=== PATIENT | female | born 1950 | race Caucasian/White ===

== ENCOUNTER 2018-08-06 09:13 | Emergency (ER) | payer MEDICARE, BC ==
--- NOTE | 2018-08-06 09:40 | EDM.PDOC ---
ED HPI GENERAL MEDICAL PROBLEM - General Chief Complaint: Chest Pain Stated Complaint: BACK PAIN AND CHEST PAIN /SOB Time Seen by Provider: 08/06/18 09:30 Source of Information: Reports: Patient History Limitations: Reports: No Limitations - History of Present Illness INITIAL COMMENTS - FREE TEXT/NARRATIVE: 67-year-old female presents to the ED with complaints of right-sided chest pain but also some central chest pain heaviness dating back as far as 3 days ago. On Saturday she felt fatigued on minimal exertion. But she did appreciate some degree of central chest discomfort on Saturday the . Last night the pain was much worse no position was carpal. She finally had to get out of bed and sleep in a when backed chair with her legs up on another chair. Off up a bit of clear sputum this morning. No fever or chills. Pain is worsened by deep breathing. No recent travel history no history of DVT. Pain in the abdomen. She is aware pain in her right upper back just inferior to her scapula on the right side. Dominant surgery includes a vaginal-assisted hysterectomy with retention of the ovaries. Denies any past problems with her heart. Does has some problems with her blood pressure. Onset: Gradual Onset Date: 08/03/18 (Initially pain pain seemed to be off and on but is much more constant and severe. Pain was 10 out of 10 last night. Currently 7 out of 10) Duration: Day(s):, Getting Worse, Intermittent, Waxing/Waning Location: Reports: Chest (Right anterior chest radiating into her right mid back ) Quality: Reports: Ache (Describes the pain as a dull deep aching pain.) Severity: Moderate (1710 out of 10.) Improves with: Reports: Rest Worsens with: Reports: Other, Movement Context: Reports: Other. Denies: Activity (Coughing), Exercise, Lifting, Sick Contact, Trauma Associated Symptoms: Reports: Chest Pain, Cough (See history of present illness) , Malaise, Shortness of Breath. Denies: Confusion (Spontaneous occurrence), cough w sputum ( October little bit of clear sputum this morning.), Diaphoresis , Fever/Chills, Headaches, Loss of Appetite, Nausea/Vomiting, Rash, Seizure, Weakness Treatments X RAY TECHNOLOGIST: Reports: Other (see below) (None.) Right Chest Pain Score (Numeric/FACES): 5 - Related Data Allergies Allergy/AdvReac Type Severity Reaction Status Date / Time tomato Allergy Itching Verified 08/06/18 09:17 venom-honey bee Allergy Anaphylactic Verified 08/06/18 09:17 [bee venom (honey bee)] Shock Home Meds: Home Meds EPINEPHrine [Epipen] PRN 07/16/15 [History] Lisinopril [Prinivil] 20 mg PO DAILY #30 tablet 07/23/15 [Rx] atorvaSTATin [Lipitor] 1 tab PO DAILY 05/11/16 [History] metFORMIN [Glucophage XR] 1 tab PO BEDTIME 05/11/16 [History] metFORMIN [Glucophage] 2 tab PO DAILY 05/11/16 [History] Past Medical History HEENT History: Reports: None Cardiovascular History: Reports: High Cholesterol, Hypertension Respiratory History: Reports: None Other Respiratory History: Severe snoring Gastrointestinal History: Reports: None Genitourinary History: Reports: None 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 Both ovaries were retained.) Musculoskeletal Surgical History: Reports: Shoulder Surgery (Right rotator cuff surgery.), Other (See Below) (Open reduction internal fixation right tib-fib. Hardware remains in place) Other Musculoskeletal Surgeries/Procedures:: hysterectomy Social & Family History - Family History Family Medical History: Noncontributory - Tobacco Use Smoking Status *Q: Never Smoker - Caffeine Use Caffeine Use: Reports: None - Recreational Drug Use Recreational Drug Use: No - Living Situation & Occupation Living situation: Reports: Occupation: Employed ED ROS GENERAL - Review of Systems Review Of Systems: See Below Constitutional: Reports: Malaise, Fatigue (From not sleeping the last 4 nights) , Decreased Appetite. Denies: Fever, Chills, Weight Loss HEENT: Reports: Glasses Respiratory: Reports: Shortness of Breath, Other. Denies: Wheezing, Pleuritic Chest Pain, Cough, Sputum Cardiovascular: Reports: Chest Pain (Right chest pain. Right chest pain for the last 4 days just gradually getting worse. Occasional central chest discomfort but primarily right upper anterior chest rating to to her right back inferior to her scapula), Blood Pressure Problem, Dyspnea on Exertion, Edema (Right leg will swell once well but if she wears a compression stocking she usually keeps it under control. This is the leg she had surgery on for broken). Denies: Claudication (Chronic hypertension), Lightheadedness, Orthopnea Endocrine: Reports: Fatigue GI/Abdominal: Denies: Abdominal Pain Musculoskeletal: Reports: Back Pain (Right upper back pain associate with the right chest pain underneath her shoulder blade) Skin: Reports: No Symptoms Neurological: Reports: No Symptoms Psychiatric: Reports: No Symptoms ED EXAM, GENERAL - Physical Exam Exam: See Below Exam Limited By: No Limitations General Appearance: WD/WN, Moderate Distress (Appears to be in genuine discomfort.) Eye Exam: Bilateral Eye: Normal Inspection Neck: Normal Inspection, Supple, Non-Tender, Full Range of Motion. No: Carotid Bruit, Lymphadenopathy (L), Lymphadenopathy (R) Respiratory/Chest: No Respiratory Distress, Lungs Clear, Normal Breath Sounds, Other (No similar type pain on the left side.) Cardiovascular: Normal Peripheral Pulses, Regular Rate, Rhythm, No Edema, No Gallop, No Murmur, No Rub Peripheral Pulses: 1+: Posterior Tibial (L), Posterior Tibial (R), Dorsalis Pedis (L), Dorsalis Pedis (R) GI/Abdominal: Normal Bowel Sounds, Soft, Non-Tender, No Organomegaly, No Abnormal Bruit, No Mass, Pelvis Stable, Other (Negative Larios sign) Back Exam: Normal Inspection, Full Range of Motion, Other (There is some degree of muscle spasm and tenderness just inferior and slightly medial to the lower right scapula.) Extremities: Normal Inspection, Normal Range of Motion, Non-Tender, No Pedal Edema Neurological: Alert, Oriented, CN II-XII Intact, Normal Cognition Psychiatric: Normal Affect, Normal Mood Skin Exam: Warm, Dry, Intact, Normal Color, No Rash EKG INTERPRETATION EKG Date: 08/06/18 Time: 09:20 Rhythm: NSR Rate (Beats/Min): 90 (Frequent unifocal PVCs. Occasional PACs.) [place]: Normal P-Wave: Enlarged (Left atrial hypertrophy pattern) QRS: Other (There is a Q-wave in V1 and V2 and near Q-wave in V3 suggesting old anteroseptal myocardial infarction.) ST-T: Other (Diffuse early repolarization pattern.) QT: Normal EKG Interpretation Comments: Abnormal ECG Course - Vital Signs Last Recorded V/S: Last Vital Signs Temp 36.0 C 08/06/18 09:17 Pulse 101 H 08/06/18 09:17 Resp 18 08/06/18 09:17 BP 166/98 H 08/06/18 09:17 Pulse Ox 97 08/06/18 09:17 - Orders/Labs/Meds Orders: Active Orders 24 hr Category Date Time Status EKG 12 Lead [EKG Documentation Completion] [RC] STAT Care 08/06/18 09:25 Active Chest 1V Frontal [CR] Stat Exams 08/06/18 09:49 Taken Ketorolac [Toradol] Med 08/06/18 10:00 Active 30 mg IVPUSH ONETIME Sodium Chloride 0.9% [Normal Saline] 1,000 ml Med 08/06/18 10:00 Active IV ASDIRECTED Medication Orders Sodium Chloride (Normal Saline) 1,000 mls @ 100 mls/hr IV ASDIRECTED JEFE Last Admin: 08/06/18 09:58 Dose: 100 mls/hr Ketorolac Tromethamine (Toradol) 30 mg IVPUSH ONETIME JEFE Last Admin: 08/06/18 09:59 Dose: 30 mg Labs: Laboratory Tests 08/06/18 08/06/18 08/06/18 Range/Units 09:35 09:35 09:35 WBC 10.35 H (3.98-10.04) K/mm3 RBC 4.13 (3.98-5.22) M/mm3 Hgb 11.7 (11.2-15.7) gm/L Hct 35.3 (34.1-44.9) % MCV 85.5 (79.4-94.8) fl MCH 28.3 (25.6-32.2) pg MCHC 33.1 (32.2-35.5) g/dl RDW Std Deviation 40.2 (36.4-46.3) fL Plt Count 351 (182-369) K/mm3 MPV 11.0 (9.4-12.3) fl Neutrophils % (Manual) 67 H (40-60) % Band Neutrophils % 0 (0-10) % Lymphocytes % (Manual) 27 (20-40) % Atypical Lymphs % 0 % Monocytes % (Manual) 5 (2-10) % Eosinophils % (Manual) 1 (0.7-5.8) % Basophils % (Manual) 0 L (0.1-1.2) Platelet Estimate Adequate RBC Morph Comment Normal PT 10.3 (9.5-12.1) SECONDS INR 0.94 D-Dimer, Quantitative (0.19-0.50) mg/L Sodium 135 L (136-145) mEq/L Potassium 4.3 (3.5-5.1) mEq/L Chloride 101 (98-107) mEq/L Carbon Dioxide 24 (21-32) mEq/L Anion Gap 14.3 (5-15) BUN 13 (7-18) mg/dL Creatinine 1.1 H (0.55-1.02) mg/dL Est Cr Clr Drug Dosing 41.62 mL/min Estimated GFR (MDRD) 50 (>60) mL/min BUN/Creatinine Ratio 11.8 L (14-18) Glucose 256 H (80-115) mg/dL Calcium 9.7 (8.5-10.1) mg/dL Magnesium 1.5 L (1.8-2.4) mg/dl Total Bilirubin 0.5 (0.2-1.0) mg/dL AST 27 (15-37) U/L ALT 31 (14-59) U/L Alkaline Phosphatase 127 H (46-116) U/L CK-MB (CK-2) 8.0 H (0-3.6) ng/ml Troponin I 3.214 H* (0.00-0.056) ng/mL C-Reactive Protein 0.8 (<1.0) mg/dL NT-Pro-B Natriuret Pep (0-125) pg/mL Total Protein 7.6 (6.4-8.2) g/dl Albumin 4.0 (3.4-5.0) g/dl Globulin 3.6 gm/dL Albumin/Globulin Ratio 1.1 (1-2) 18 08/06/18 Range/Units 09:35 09:35 WBC (3.98-10.04) K/mm3 RBC (3.98-5.22) M/mm3 Hgb (11.2-15.7) gm/L Hct (34.1-44.9) % MCV (79.4-94.8) fl MCH (25.6-32.2) pg MCHC (32.2-35.5) g/dl RDW Std Deviation (36.4-46.3) fL Plt Count (182-369) K/mm3 MPV (9.4-12.3) fl Neutrophils % (Manual) (40-60) % Band Neutrophils % (0-10) % Lymphocytes % (Manual) (20-40) % Atypical Lymphs % % Monocytes % (Manual) (2-10) % Eosinophils % (Manual) (0.7-5.8) % Basophils % (Manual) (0.1-1.2) Platelet Estimate RBC Morph Comment PT (9.5-12.1) SECONDS INR D-Dimer, Quantitative 0.27 (0.19-0.50) mg/L Sodium (136-145) mEq/L Potassium (3.5-5.1) mEq/L Chloride (98-107) mEq/L Carbon Dioxide (21-32) mEq/L Anion Gap (5-15) BUN (7-18) mg/dL Creatinine (0.55-1.02) mg/dL Est Cr Clr Drug Dosing mL/min Estimated GFR (MDRD) (>60) mL/min BUN/Creatinine Ratio (14-18) Glucose (80-115) mg/dL Calcium (8.5-10.1) mg/dL Magnesium (1.8-2.4) mg/dl Total Bilirubin (0.2-1.0) mg/dL AST (15-37) U/L ALT (14-59) U/L Alkaline Phosphatase (46-116) U/L CK-MB (CK-2) (0-3.6) ng/ml Troponin I (0.00-0.056) ng/mL C-Reactive Protein (<1.0) mg/dL NT-Pro-B Natriuret Pep 4723 H (0-125) pg/mL Total Protein (6.4-8.2) g/dl Albumin (3.4-5.0) g/dl Globulin gm/dL Albumin/Globulin Ratio (1-2) Meds: Medications Generic Name Dose Route Start Last Admin Trade Name Kasey PRN Reason Stop Dose Admin Sodium Chloride 1,000 mls @ 100 mls/hr 08/06/18 10:00 08/06/18 09:58 Normal Saline IV 100 mls/hr ASDIRECTED JEFE Administration Ketorolac Tromethamine 30 mg 08/06/18 10:00 08/06/18 09:59 Toradol IVPUSH 30 mg ONETIME JEFE Administration Discontinued Medications Generic Name Dose Route Start Last Admin Trade Name Kasey PRN Reason Stop Dose Admin Hydromorphone HCl 0.5 mg 08/06/18 09:46 08/06/18 10:00 Dilaudid IVPUSH 08/06/18 09:47 0.5 mg ONETIME ONE Administration Metoclopramide HCl 7.5 mg 08/06/18 09:47 08/06/18 09:58 Reglan IVPUSH 08/06/18 09:48 7.5 mg ONETIME ONE Administration - Radiology Interpretation Free Text/Narrative:: 67-year-old female presents to the ED with a four-day history of right-sided chest pain. Initially started more central chest and then moved over to the right anterior upper chest. She the pain was intermittent but is now become much more constant and severe. She couldn't sleep at all last night is lying in bed seem to make pain much worse. She sat up in a wheelchair with her legs elevated throat the night. Associated cough fever chills. Pain is described as a dull deep ache that is constant. Patient reports no known heart disease. Has chronic hypertension and hypercholesterolemia. She is a never smoker. ECG suggests an old anteroseptal myocardial infarction. Examination reveals marked chest wall tenderness on palpation of the ribs right anterior chest particularly 3,4 and 5. Some pain also inferior to her right scapula in her back with some mild muscle spasm noted. No rashes noted to suggest shingles at this time. Current pain is listed as 7 out of 10. O2 sats are normal. Plan IV normal saline at 100 mils per hour. Will give Toradol 30 mg IV with Reglan 7.5 mg IV and Dilaudid 0.5 mg IV for acute pain relief. Routine labs including cardiac markers and d-dimer to be done. Single chest x-ray to be done as well. - Re-Assessments/Exams Free Text/Narrative Re-Assessment/Exam: 08/06/18 10:13 2 view chest x-ray reveals a mild diffuse vascular congestion pattern. No true lung infiltrates. There are soft tissue densities both lower lobes from her breasts. Ribs appear to be normal. 08/06/18 10:50: On reevaluation patient states her pain is markedly improved. She states she has some mild discomfort over the right anterior ribs particular a third and fourth which was present still on palpation but much improved. We are still awaiting the lab results. 08/06/18 11:01 Part of the labs are back. White count was 10.3 567% neutrophils but no bands reported. Hemoglobin slightly low 11.7 with hematocrit of 35.3. Count normal 351,000. PT is 10.3 with an INR of 0.94. D-dimer is normal at 0.27. Remainder the labs are now back.. Sodium is slightly low at 135. Potassium normal at 4.3. Chloride 11 with a bicarbonate 24. And a gap is normal at 14.3. BUN is 13 with a creatinine of 1.1. GFR is 50. Glucose is elevated at 256. She has a known type II diabetic. Is 9.7. Magnesium slightly low at 1.5. Liver function is normal. Alkaline phosphatase is minimally elevated 127. CK-MB fraction is elevated at 8.0. Is markedly elevated at 3.214 indicating recent myocardial infarction. He is elevated at 4723. Plan the patient be started on low-dose nitroglycerin drip at 10 mcg/m. She'll be given baby aspirin 324 mg chewed. He started on heparin drip as well. She'll be given 5000 unit bolus and then started at 1000 units per hour. I will make appropriate arrangements for transfer to cardiology in [place]. 08/06/18 11:10 after speaking with the patient and her daughter decision made to transport to [facility] in [place]. 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 Chow--at [facility] in [place] and she has accepted care. Plan will be to have the patient admitted by hospitalist --on the telemetry service. Dr. Chow will see her in consultation. Be transported to [place] per ground ambulance. Dr. Chow--had asked that we give her a dose of 40 mg of Lipitor now. The patient's daughter went home and attached she the medications and she will be given Lipitor 40 by mouth now. We do not have Lipitor in the hospital. Vital signs at this time reveal a heart rate of 90 in sinus. BP is 148/89 sats are 94% on room air. Departure - Departure Time of Disposition: 11:37 Disposition: DC/Tfer to Acute Hospital 02 Reason for Transfer *Q: Primary PCI Indicated Condition: Fair Clinical Impression: Acute myocardial infarction due to left coronary artery occlusion, Hypomagnesemia Referrals: Nixon Hawkins Jr, MD [Primary Care Provider] - Forms: ED Department Discharge Additional Instructions: Transferred to [facility] in [place] to be a direct admit under hospice . - My Orders Last 24 Hours: My Active Orders 08/06/18 09:25 EKG 12 Lead [EKG Documentation Completion] [RC] STAT 08/06/18 09:49 Chest 1V Frontal [CR] Stat 08/06/18 10:00 Ketorolac [Toradol] 30 mg IVPUSH ONETIME Sodium Chloride 0.9% [Normal Saline] 1,000 ml IV ASDIRECTED - Assessment/Plan Last 24 Hours: My Active Orders 08/06/18 09:25 EKG 12 Lead [EKG Documentation Completion] [RC] STAT 08/06/18 09:49 Chest 1V Frontal [CR] Stat 08/06/18 10:00 Ketorolac [Toradol] 30 mg IVPUSH ONETIME Sodium Chloride 0.9% [Normal Saline] 1,000 ml IV ASDIRECTED
[2018-08-06] MEDS ORDERED: HYDROmorphone 0.5 MG/0.5 ML SYRINGE IVPUSH ONE (09:46)
[2018-08-06] MEDS ORDERED: Metoclopramide 10 MG/2 ML SDV IVPUSH ONE (09:47)
[2018-08-06] MEDS ORDERED: Ketorolac 30 MG/ML SDV IVPUSH SCH (10:00)
[2018-08-06] MEDS ORDERED: Sodium Chloride 0.9% 1,000 ML IV SCH ×2 (10:00→11:45)
[2018-08-06] MEDS ORDERED: Aspirin 81 MG Tab.Chew PO ONE (11:02)
[2018-08-06] MEDS ORDERED: Furosemide 40 MG/4 ML VIAL IVPUSH ONE (11:04)
[2018-08-06] MEDS ORDERED: Heparin Sodium 5,000 Units/ML Vial IVPUSH ONE (11:04)
[2018-08-06] MEDS ORDERED: Nitroglycerin/D5W 25 MG/250 ML BOTTLE IV SCH (11:15)
[2018-08-06] MEDS ORDERED: Heparin Sodium/D5W 25,000 UNITS/500 ML BAG IV SCH (11:15)
[2018-08-06] MEDS ORDERED: Simvastatin 40 MG Tab PO ONE (11:20)
[2018-08-06] MEDS ORDERED: Magnesium Sulfate/Water 2 GM in Premix Bag 1 BAG IV ONE (11:38)
[2018-08-06] MEDS ORDERED: Sodium Chloride 0.9% 10 ML Syringe FLUSH PRN (11:39)
--- NOTE | 2018-08-06 12:44 | CR ---
Chest: Portable view of the chest was obtained. Comparison: Prior chest x-ray of 07/17/15. Heart size and mediastinum are within normal limits for portable technique. Previous right shoulder surgery is seen. Lungs are clear with no acute parenchymal change. Impression: 1. Incidental findings. Nothing acute is seen on portable chest x-ray. Diagnostic code #2
[2018-08-06 12:54] VITALS: BP 144/92
== END 2018-08-06 12:07 ==
LOC: JD.ED 09:13
DX: I21.9 Acute myocardial infarction, unspecified (principal); E83.42 Hypomagnesemia; E11.9 Type 2 diabetes mellitus without complications; Z91.018 Allergy to other foods; Z91.030 Bee allergy status; Z79.899 Other long term (current) drug therapy
CPT/HCPCS: 36415; 71045; 80053; 82553; 83735; 83880; 84484; 85007; 85027; 85379; 85610; 85730; 86140; 93005; 96361; 96365; 96368; 96375; 99285; A9270; J1170; J1644; J1885; J1940; J2765; J3490; J7040; J7050; 93010; J3475

== ENCOUNTER 2021-02-24 07:33 | Inpatient (IN) | payer BC, MEDICARE ==
[2021-02-24] MEDS ORDERED: Ondansetron 4 MG/2 ML SDV IVPUSH ONE (08:04)
[2021-02-24] MEDS ORDERED: Sodium Chloride 0.9% 1,000 ML IV SCH (08:15)
[2021-02-24] MEDS: Sodium Chloride 0.9% 10 ML Syringe FLUSH PRN (08:23)
--- NOTE | 2021-02-24 08:40 | CR ---
Chest: Portable view of the chest was obtained. Comparison: Prior chest x-ray of 08/06/18. Patchy areas of increased density are seen within both lung bases, worse on the left side. These findings are an interval change from prior exam. Slight density is also noted within the left upper lung. Heart size and mediastinum are within normal limits. Prior right shoulder surgery is noted. Impression: 1. Increased density within both lung bases, worse on the right side. Additional increased density within the left upper lung is seen. Findings could represent areas of aspiration as well as bilateral pneumonia. Please rule out COVID disease. 2. Other findings as noted above which are stable. Diagnostic code #3
--- NOTE | 2021-02-24 09:00 | EDM.PDOC ---
ED HPI GENERAL MEDICAL PROBLEM - General Chief Complaint: Respiratory Problem Stated Complaint: COVID +/SOB Time Seen by Provider: 02/24/21 07:51 Source of Information: Reports: Patient History Limitations: Reports: No Limitations - History of Present Illness INITIAL COMMENTS - FREE TEXT/NARRATIVE: The patient presents with a fever, chills, cough, body aches, shortness of breat h, generalized weakness and nausea and vomiting. She is COVID +. She was diagnosed last Saturday at [facility]. She has also been immunized. She had the Ricky and Ricky vaccine at [facility] on January 25. She did fine with it and she has been feeling good until about 10 days ago. She has a history of diabetes, [place], CAD, hypertension and hypercholesterolemia. She has no diarrhea with this. She does not smoke. When she came back her oxygen saturations were 88%. She denies chest pain. Onset: Gradual Duration: Week(s): Location: Reports: Generalized Quality: Reports: Ache Severity: Moderate Improves with: Reports: None Worsens with: Reports: None Associated Symptoms: Reports: Cough, Fever/Chills, Headaches, Nausea/Vomiting, Shortness of Breath. Denies: Chest Pain Generalized Pain Score (Numeric/FACES): 8 - Related Data Allergies Allergy/AdvReac Type Severity Reaction Status Date / Time tomato Allergy Itching Verified 02/24/21 07:48 venom-honey bee Allergy Anaphylactic Verified 02/24/21 07:48 [bee venom (honey bee)] Shock Home Meds: Home Meds Aspirin [Adult Aspirin] 81 mg PO DAILY 08/18/18 [History] Metoprolol Tartrate 25 mg PO BID 08/18/18 [History] atorvaSTATin Calcium [Lipitor] 40 mg PO DAILY 08/18/18 [History] metFORMIN [Glucophage] 1,000 mg PO BID 08/18/18 [History] Dapagliflozin Propanediol [Farxiga] 10 mg PO DAILY 02/24/21 [History] Ubidecarenone [Co Q-10] 100 mg PO DAILY 02/24/21 [History] Past Medical History HEENT History: Reports: None Cardiovascular History: Reports: High Cholesterol, Hypertension Respiratory History: Reports: None Other Respiratory History: Severe snoring Gastrointestinal History: Reports: None Genitourinary History: Reports: None 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: 2 pregnancies 1 live Musculoskeletal History: Reports: Arthritis Neurological History: Reports: None Other Neuro History: syncope with LOC Endocrine/Metabolic History: Reports: Diabetes, Type I Hematologic History: Reports: None Immunologic History: Reports: None Oncologic (Cancer) History: Reports: None Dermatologic History: Reports: None - Infectious Disease History Infectious Disease History: Reports: None - Past Surgical History Other HEENT Surgeries/Procedures: itchy ears and infection Female Surgical History: Reports: Hysterectomy Endocrine Surgical History: Reports: None Other Endocrine Surgeries/Procedures: brothers mother hx of diabetes Neurological Surgical History: Reports: None Musculoskeletal Surgical History: Reports: Shoulder Surgery, Other (See Below) Other Musculoskeletal Surgeries/Procedures:: hysterectomy Social & Family History - Family History Family Medical History: No Pertinent Family History - Tobacco Use Tobacco Use Status *Q: Never Tobacco User - Caffeine Use Caffeine Use: Reports: None - Recreational Drug Use Recreational Drug Use: No - Living Situation & Occupation Living situation: Reports: Occupation: Employed ED ROS GENERAL - Review of Systems Review Of Systems: See Below Constitutional: Reports: Fever, Chills, Malaise, Weakness, Fatigue HEENT: Reports: No Symptoms Respiratory: Reports: Shortness of Breath, Cough Cardiovascular: Reports: No Symptoms Endocrine: Reports: Fatigue GI/Abdominal: Reports: Nausea, Vomiting. Denies: Abdominal Pain, Diarrhea : Reports: No Symptoms Musculoskeletal: Reports: Muscle Pain (Generalized) ED EXAM, GENERAL - Physical Exam Exam: See Below Exam Limited By: No Limitations General Appearance: Alert, No Apparent Distress Ears: Normal External Exam Nose: Normal Inspection Head: Atraumatic, Normocephalic Neck: Normal Inspection Respiratory/Chest: No Respiratory Distress, Rhonchi Cardiovascular: Regular Rate, Rhythm, No Edema, No Murmur GI/Abdominal: Soft, Non-Tender, No Organomegaly, No Mass Back Exam: Normal Inspection Extremities: Normal Inspection Neurological: Alert, Oriented, No Motor/Sensory Deficits #1 Interpretation EKG Date: 02/24/21 Time: 08:24 Rhythm: NSR Rate (Beats/Min): 79 [place]: Normal P-Wave: Present QRS: Normal ST-T: Normal QT: Normal Course - Vital Signs Last Recorded V/S: Last Vital Signs Temp 100.2 F 02/24/21 07:42 Pulse 89 02/24/21 07:42 Resp 17 02/24/21 07:42 BP 180/77 H 02/24/21 07:42 Pulse Ox 89 L 02/24/21 07:42 - Orders/Labs/Meds Orders: Active Orders 24 hr Category Date Time Status Cardiac Monitoring [RC] . DIRECTED Care 02/24/21 08:04 Active EKG Documentation Completion [RC] STAT Care 02/24/21 08:05 Active Oxygen Therapy [RC] PRN Care 02/24/21 08:04 Active Peripheral IV Care [RC] . DIRECTED Care 02/24/21 08:04 Active CULTURE BLOOD [BC] Stat Lab 02/24/21 08:15 Received CULTURE BLOOD [BC] Stat Lab 02/24/21 08:25 Received HEPATIC FUNCTION PANEL,HFP [CHEM] DAILY Lab 02/25/21 10:00 Ordered HEPATIC FUNCTION PANEL,HFP [CHEM] DAILY Lab 02/26/21 10:00 Ordered HEPATIC FUNCTION PANEL,HFP [CHEM] DAILY Lab 02/27/21 10:00 Ordered HEPATIC FUNCTION PANEL,HFP [CHEM] DAILY Lab 02/28/21 10:00 Ordered HEPATIC FUNCTION PANEL,HFP [CHEM] Stat Lab 02/24/21 08:15 Received Sodium Chloride 0.9% [Normal Saline] 1,000 ml Med 02/24/21 08:15 Active IV .BOLUS Sodium Chloride 0.9% [Saline Flush] Med 02/24/21 08:04 Active 10 ml FLUSH ASDIRECTED PRN Blood Culture x2 Reflex Set [OM.PC] Stat Oth 02/24/21 08:05 Ordered ED Antiemetic Medication Reflex [OM.PC] Stat Oth 02/24/21 08:04 Ordered Isolation [COMM] Routine Oth 02/24/21 08:07 Ordered Peripheral IV Insertion Adult [OM.PC] Stat Oth 02/24/21 08:04 Ordered Medication Orders Sodium Chloride (Normal Saline) 1,000 mls @ 1,000 mls/hr IV .BOLUS JEFE Last Admin: 02/24/21 08:23 Dose: 1,000 mls/hr Documented by: BUDDY Sodium Chloride (Sodium Chloride 0.9% 10 Ml Syringe) 10 ml FLUSH ASDIRECTED PRN PRN Reason: Keep Vein Open Last Admin: 02/24/21 08:23 Dose: 10 ml Documented by: BUDDY Labs: Laboratory Tests 02/24/21 02/24/21 02/24/21 Range/Units 08:15 08:15 08:15 WBC 9.93 (3.98-10.04) K/mm3 RBC 3.63 L (3.98-5.22) M/mm3 Hgb 10.1 L D (11.2-15.7) gm/dl Hct 30.9 L (34.1-44.9) % MCV 85.1 (79.4-94.8) fl MCH 27.8 (25.6-32.2) pg MCHC 32.7 (32.2-35.5) g/dl RDW Std Deviation 40.4 (36.4-46.3) fL Plt Count 454 H D (182-369) K/mm3 MPV 10.0 (9.4-12.3) fl Neut % (Auto) 77.9 H (34.0-71.1) % Lymph % (Auto) 11.1 L (19.3-51.7) % [place] % (Auto) 8.8 (4.7-12.5) % Eos % (Auto) 0.1 L (0.7-5.8) Baso % (Auto) 0.1 (0.1-1.2) % Neut # (Auto) 7.74 H (1.56-6.13) K/mm3 Lymph # (Auto) 1.10 L (1.18-3.74) K/mm3 [place] # (Auto) 0.87 H (0.24-0.36) K/mm3 Eos # (Auto) 0.01 L (0.04-0.36) K/mm3 Baso # (Auto) 0.01 (0.01-0.08) K/mm3 Manual Slide Review Abnormal smear PT 10.4 (9.7-12.0) SECONDS INR 0.97 APTT 26.4 (21.7-31.4) SECONDS D-Dimer, Quantitative 1.22 H (0.19-0.50) mg/L Puncture Site ABG pH (7.35-7.45) ABG pCO2 (35.0-45.0) mmHg ABG pO2 (80.0-100.0) mmHg ABG HCO3 (22.0-26.0) meq/L ABG O2 Saturation (96.0-97.0) % ABG Base Excess (-2-2.0) Kadeem Test A-a Gradient mmHg O2 Delivery Device Oxygen Flow Rate FiO2 (21.00-100.00) % Sodium 135 L (136-145) mEq/L Potassium 4.1 (3.5-5.1) mEq/L Chloride 97 L (98-107) mEq/L Carbon Dioxide 26 (21-32) mEq/L Anion Gap 16.1 H (5-15) BUN 16 (7-18) mg/dL Creatinine 1.2 H (0.55-1.02) mg/dL Est Cr Clr Drug Dosing 36.60 mL/min Estimated GFR (MDRD) 45 (>60) mL/min BUN/Creatinine Ratio 13.3 L (14-18) Glucose 363 H (80-115) mg/dL Lactic Acid (0.4-2.0) mmol/L Calcium 8.6 (8.5-10.1) mg/dL Magnesium 1.9 (1.8-2.4) mg/dl Ferritin (8-252) ng/ml Total Bilirubin 0.5 (0.2-1.0) mg/dL AST 33 (15-37) U/L ALT 44 (14-59) U/L Alkaline Phosphatase 151 H (46-116) U/L Lactate Dehydrogenase 324 H (81-234) U/L Troponin I < 0.017 (0.00-0.056) ng/mL C-Reactive Protein 25.8 H* (<1.0) mg/dL Total Protein 8.0 (6.4-8.2) g/dl Albumin 2.8 L (3.4-5.0) g/dl Globulin 5.2 gm/dL Albumin/Globulin Ratio 0.5 L (1-2) 02/24/21 02/24/21 02/24/21 Range/Units 08:15 08:15 08:32 WBC (3.98-10.04) K/mm3 RBC (3.98-5.22) M/mm3 Hgb (11.2-15.7) gm/dl Hct (34.1-44.9) % MCV (79.4-94.8) fl MCH (25.6-32.2) pg MCHC (32.2-35.5) g/dl RDW Std Deviation (36.4-46.3) fL Plt Count (182-369) K/mm3 MPV (9.4-12.3) fl Neut % (Auto) (34.0-71.1) % Lymph % (Auto) (19.3-51.7) % [place] % (Auto) (4.7-12.5) % Eos % (Auto) (0.7-5.8) Baso % (Auto) (0.1-1.2) % Neut # (Auto) (1.56-6.13) K/mm3 Lymph # (Auto) (1.18-3.74) K/mm3 [place] # (Auto) (0.24-0.36) K/mm3 Eos # (Auto) (0.04-0.36) K/mm3 Baso # (Auto) (0.01-0.08) K/mm3 Manual Slide Review PT (9.7-12.0) SECONDS INR APTT (21.7-31.4) SECONDS D-Dimer, Quantitative (0.19-0.50) mg/L Puncture Site Lt radial ABG pH 7.45 (7.35-7.45) ABG pCO2 35.6 (35.0-45.0) mmHg ABG pO2 88.0 (80.0-100.0) mmHg ABG HCO3 24.4 (22.0-26.0) meq/L ABG O2 Saturation 96.6 (96.0-97.0) % ABG Base Excess 1.1 (-2-2.0) Kadeem Test Positive A-a Gradient 67 mmHg O2 Delivery Device Nasal cannula Oxygen Flow Rate 2.0 FiO2 28.00 (21.00-100.00) % Sodium (136-145) mEq/L Potassium (3.5-5.1) mEq/L Chloride (98-107) mEq/L Carbon Dioxide (21-32) mEq/L Anion Gap (5-15) BUN (7-18) mg/dL Creatinine (0.55-1.02) mg/dL Est Cr Clr Drug Dosing mL/min Estimated GFR (MDRD) (>60) mL/min BUN/Creatinine Ratio (14-18) Glucose (80-115) mg/dL Lactic Acid 1.5 (0.4-2.0) mmol/L Calcium (8.5-10.1) mg/dL Magnesium (1.8-2.4) mg/dl Ferritin 599 H (8-252) ng/ml Total Bilirubin (0.2-1.0) mg/dL AST (15-37) U/L ALT (14-59) U/L Alkaline Phosphatase (46-116) U/L Lactate Dehydrogenase (81-234) U/L Troponin I (0.00-0.056) ng/mL C-Reactive Protein (<1.0) mg/dL Total Protein (6.4-8.2) g/dl Albumin (3.4-5.0) g/dl Globulin gm/dL Albumin/Globulin Ratio (1-2) Meds: Medications Generic Name Dose Route Start Last Admin Trade Name Freq PRN Reason Stop Dose Admin Sodium Chloride 1,000 mls @ 1,000 mls/hr 02/24/21 08:15 02/24/21 08:23 Normal Saline IV 1,000 mls/hr .BOLUS JEFE Administration Sodium Chloride 10 ml 02/24/21 08:04 02/24/21 08:23 Sodium Chloride 0.9% 10 Ml Syringe FLUSH 10 ml ASDIRECTED PRN Administration Keep Vein Open Discontinued Medications Generic Name Dose Route Start Last Admin Trade Name Freq PRN Reason Stop Dose Admin Dexamethasone 6 mg 02/24/21 09:59 Dexamethasone 4 Mg/Ml Sdv IVPUSH 02/24/21 10:00 ONETIME ONE Remdesivir 200 mg/ Sodium 250 mls @ 250 mls/hr 02/24/21 09:59 Chloride IV 02/24/21 10:00 ONETIME ONE Ondansetron HCl 4 mg 02/24/21 08:04 02/24/21 08:23 Ondansetron 4 Mg/2 Ml Sdv IVPUSH 02/24/21 08:05 4 mg ONETIME ONE Administration - Re-Assessments/Exams Free Text/Narrative Re-Assessment/Exam: 02/24/21 09:01 I ordered oxygen, IV NS 1L bolus, zofran 4mg IV, EKG, CXR, labs, lactic acid and blood cultures. Her EKG shows a NSR with on acute changes. Her CXR shows inc reased density within both lung bases, worse on the right side. Additional increased density within the left upper lung is seen. Findings could represent areas of aspiration as well as bilateral pneumonia. Please rule out COVID disease. Other findings which are stable. Her WBC was normal. Her Hgb was low at 10.1. Her ABG looks good on oxygen by nasal cannula. 02/24/21 10:10 Her D-dimer was elevated at 1.22. Her Na was low at 135. Her anion gap was elevated at 16.1. Her creatinine was elevated at 1.2. Her glucose was elevated at 363. Her lactic acid was normal. Her Ferritin was elevated at 599. Her alk phos was elevated at 151. Her LDH is elevated at 324. Her troponin is negative. Her CRP is elevated at 25.8. She has COVID pneumonia and needing oxygen. I have ordered dexamethasone 6mg IV and remdesivir 200mg IV. I called Dr Subramanian and he agreed to the admission. Departure - Departure Time of Disposition: 10:15 Disposition: Admitted As Inpatient 67 Condition: Fair Clinical Impression: COVID-19, Pneumonia due to COVID-19 virus, Hypoxia - Discharge Information Referrals: Nixon Hawkins Jr, MD [Primary Care Provider] - Forms: ED Department Discharge Sepsis Event Note (ED) - Evaluation Sepsis Screening Result: No Definite Risk - Focused Exam Vital Signs: Vital Signs Temp Pulse Resp BP Pulse Ox 02/24/21 07:42 100.2 F 89 17 180/77 H 89 L - My Orders Last 24 Hours: My Active Orders 02/24/21 08:04 Cardiac Monitoring [RC] . DIRECTED Oxygen Therapy [RC] PRN Peripheral IV Care [RC] . DIRECTED Sodium Chloride 0.9% [Saline Flush] 10 ml FLUSH ASDIRECTED PRN ED Antiemetic Medication Reflex [OM.PC] Stat Peripheral IV Insertion Adult [OM.PC] Stat 02/24/21 08:05 EKG Documentation Completion [RC] STAT Blood Culture x2 Reflex Set [OM.PC] Stat 02/24/21 08:07 Isolation [COMM] Routine 02/24/21 08:15 CULTURE BLOOD [BC] Stat HEPATIC FUNCTION PANEL,HFP [CHEM] Stat Sodium Chloride 0.9% [Normal Saline] 1,000 ml IV .BOLUS 02/24/21 08:25 CULTURE BLOOD [BC] Stat 02/25/21 10:00 HEPATIC FUNCTION PANEL,HFP [CHEM] DAILY 02/26/21 10:00 HEPATIC FUNCTION PANEL,HFP [CHEM] DAILY 02/27/21 10:00 HEPATIC FUNCTION PANEL,HFP [CHEM] DAILY 02/28/21 10:00 HEPATIC FUNCTION PANEL,HFP [CHEM] DAILY - Assessment/Plan Last 24 Hours: My Active Orders 02/24/21 08:04 Cardiac Monitoring [RC] . DIRECTED Oxygen Therapy [RC] PRN Peripheral IV Care [RC] . DIRECTED Sodium Chloride 0.9% [Saline Flush] 10 ml FLUSH ASDIRECTED PRN ED Antiemetic Medication Reflex [OM.PC] Stat Peripheral IV Insertion Adult [OM.PC] Stat 02/24/21 08:05 EKG Documentation Completion [RC] STAT Blood Culture x2 Reflex Set [OM.PC] Stat 02/24/21 08:07 Isolation [COMM] Routine 02/24/21 08:15 CULTURE BLOOD [BC] Stat HEPATIC FUNCTION PANEL,HFP [CHEM] Stat Sodium Chloride 0.9% [Normal Saline] 1,000 ml IV .BOLUS 02/24/21 08:25 CULTURE BLOOD [BC] Stat 02/25/21 10:00 HEPATIC FUNCTION PANEL,HFP [CHEM] DAILY 02/26/21 10:00 HEPATIC FUNCTION PANEL,HFP [CHEM] DAILY 02/27/21 10:00 HEPATIC FUNCTION PANEL,HFP [CHEM] DAILY 02/28/21 10:00 HEPATIC FUNCTION PANEL,HFP [CHEM] DAILY
[2021-02-24] MEDS ORDERED: Dexamethasone 4 MG/ML SDV IVPUSH ONE (09:59)
[2021-02-24] MEDS ORDERED: REMDESIVIR 200 MG in Sodium Chloride 0.9% 250 ML IV ONE ×2 (09:59→11:00)
[2021-02-24] MEDS ORDERED: Magnesium Hydroxide 400 MG/5 ML Susp 30 ML Cup PO PRN (12:37)
[2021-02-24] MEDS ORDERED: Docusate Sodium 100 MG Cap PO PRN (12:37)
[2021-02-24] MEDS ORDERED: Ondansetron 4 MG/2 ML SDV IV PRN (12:37)
--- NOTE | 2021-02-24 12:53 | PCM.HP.2 ---
H&P History of Present Illness - General Date of Service: 02/24/21 Admit Problem/Dx: Admission Diagnosis/Problem Admission Diagnosis/Problem Pneumonia Source of Information: Patient, Old Records, Provider, RN, RN Notes Reviewed History Limitations: Reports: No Limitations - History of Present Illness Initial Comments - Free Text/Narative: This is a 70-year-old female presents to ED on 02/24/2021 with fever, chills, cough, body aches, shortness of breath, generalized weakness, nausea, and vomiting. She was tested and confirmed positive with Covid this past Saturday at [facility]. She reports she received a [employer] Covid vaccine at [facility] on January 25. She had been doing fine until about 10 days ago when she started developing symptoms. She denies any diarrhea or smoking history. Denies any current chest pain. In the ED temp was 100.2 Fahrenheit. Pulse was 89. Respirations 17. Blood pressure 180/77. Pulse ox 9% on room air. Twelve-lead EKG is obtained showing a sinus rhythm at 79 bpm. Labs are obtained showing a WBC of 9.93. Hemoglobin 10.1. Platelets elevated at 454,000. Neutrophils elevated at 77.9%. INR 0.97. D-dimer is 1.22. aPTT is 26.4. Sodium is 135. Potassium 4.1. Chloride 97. Carbon oxide 26. Anion gap 16.1. BUN is 16, creatinine 1.2, GFR 45. Glucose is 363. Calcium 8.6. Magnesium 1.9. Total bilirubin 0.5. AST 33, ALT 44, alkaline phosphatase 151. LDH was 324. Troponin less than 0.017. CRP is high at 25.8. Albumin is low at 2.8. ABG is obtained in the left radial with a pH of 7.45. PCO2 of 35.6. PO2 of 88. HCO3 of 24.4. O2 saturation of 96.6%. AA gradient is 67. This is obtained while on 2 L via nasal cannula. Lactic acid is 1.5. Ferritin 599. Chest x-rays obtained showing increased density within both lung bases worse on the right side and additional increased density within the left upper lung seen. Findings could represent area of aspiration as well as bilateral pneumonia. Please rule out Covid disease. Other findings are noted. She is given 6 mg IV push dexamethasone and started on 200 mg remdesivir. Decision is made to admit her inpatient on telemetry for treatment of her COVID-19 pneumonia. She carries a past history of HLD, HTN, syncope, type I DM. She was never a smoker. She is a full code. Her PCP is Dr. Hawkins. Generalized Pain Score (Numeric/FACES): 8 - Related Data Allergies/Adverse Reactions: Allergies Allergy/AdvReac Type Severity Reaction Status Date / Time tomato Allergy Itching Verified 02/24/21 07:48 venom-honey bee Allergy Anaphylactic Verified 02/24/21 07:48 [bee venom (honey bee)] Shock Home Medications: Home Meds Aspirin [Adult Aspirin] 81 mg PO DAILY 08/18/18 [History] Metoprolol Tartrate 25 mg PO BID 08/18/18 [History] atorvaSTATin Calcium [Lipitor] 40 mg PO DAILY 08/18/18 [History] metFORMIN [Glucophage] 1,000 mg PO BID 08/18/18 [History] Dapagliflozin Propanediol [Farxiga] 10 mg PO DAILY 02/24/21 [History] Ubidecarenone [Co Q-10] 100 mg PO DAILY 02/24/21 [History] Past Medical History HEENT History: Reports: None Cardiovascular History: Reports: High Cholesterol, Hypertension Respiratory History: Reports: None Other Respiratory History: Severe snoring Gastrointestinal History: Reports: None Genitourinary History: Reports: None [employer]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 OB/BYN History: 2 pregnancies 1 live Musculoskeletal History: Reports: Arthritis Neurological History: Reports: None Other Neuro History: syncope with LOC Endocrine/Metabolic History: Reports: Diabetes, Type I Hematologic History: Reports: None Immunologic History: Reports: None Oncologic (Cancer) History: Reports: None Dermatologic History: Reports: None - Infectious Disease History Infectious Disease History: Reports: None - Past Surgical History Other HEENT Surgeries/Procedures: itchy ears and infection Female Surgical History: Reports: Hysterectomy Endocrine Surgical History: Reports: None Other Endocrine Surgeries/Procedures: brothers mother hx of diabetes Neurological Surgical History: Reports: None Musculoskeletal Surgical History: Reports: Shoulder Surgery, Other (See Below) Other Musculoskeletal Surgeries/Procedures:: hysterectomy Social & Family History - Family History Family Medical History: No Pertinent Family History - Tobacco Use Tobacco Use Status *Q: Never Tobacco User Second Hand Smoke Exposure: No - Caffeine Use Caffeine Use: Reports: Coffee Caffeine Use Comment: morning cup of coffee - Alcohol Use Days Per Week of Alcohol Use: 1 Number of Drinks Per Day: 1 Total Drinks Per Week: 1 - Recreational Drug Use Recreational Drug Use: No - Living Situation & Occupation Living situation: Reports: Occupation: Employed H&P Review of Systems - Review of Systems: Review Of Systems: See Below General: Reports: No Symptoms, Malaise, Weakness, Fatigue. Denies: Fever, Chills HEENT: Reports: Headaches. Denies: Sore Throat Pulmonary: Reports: Shortness of Breath, Cough. Denies: Wheezing, Pleuritic Chest Pain, Sputum Cardiovascular: Reports: Dyspnea on Exertion, Lightheadedness. Denies: Chest Pain, Palpitations, Edema Gastrointestinal: Reports: Nausea, Vomiting. Denies: Abdominal Pain, Constipation, Diarrhea, Hematochezia, Melena Genitourinary: Reports: No Symptoms. Denies: Pain Musculoskeletal: Reports: Muscle Stiffness (Generalized ) Skin: Reports: No Symptoms Psychiatric: Reports: No Symptoms. Denies: Confusion Neurological: Reports: Syncope (Hx/o), Weakness. Denies: Numbness, Pre-Existing Deficit, Tingling, Tremors, Trouble Speaking, Difficulty Walking, Change in Speech, Gait Disturbance Hematologic/Lymphatic: Reports: No Symptoms Immunologic: Reports: No Symptoms Exam - Exam Exam: See Below - Vital Signs Vital Signs: Last Vital Signs Temp 100.2 F 02/24/21 07:42 Pulse 82 02/24/21 10:19 Resp 16 02/24/21 10:19 BP 146/75 H 02/24/21 10:19 Pulse Ox 95 02/24/21 10:19 Weight: 202 lb - Exam Quality Assessment: Supplemental Oxygen (1L), DVT Prophylaxis. No: Urinary Cat heter General: Alert, Oriented, Cooperative. No: Mild Distress HEENT: Conjunctiva Clear, EACs Clear, Mucosa Moist & [place], Posterior Pharynx Clear Neck: Supple, Trachea Midline Lungs: Normal Respiratory Effort, Decreased Breath Sounds, Rhonchi Cardiovascular: Regular Rate, Regular Rhythm GI/Abdominal Exam: Normal Bowel Sounds, Soft, Non-Tender, No Distention Rectal (Female) Exam: Deferred Back Exam: Normal Inspection, Full Range of Motion Extremities: Normal Inspection, Normal Range of Motion, Non-Tender, No Pedal Edema, Normal Capillary Refill Peripheral Pulses: 2+: Radial (L), Radial (R), Dorsalis Pedis (L), Dorsalis Pedis (R) Skin: Warm, Dry, Intact Neurological: Cranial Nerves Intact (Grossly ) Neuro Extensive - Mental Status: Alert, Oriented x3, Normal Mood/Affect - Patient Data Lab Results Last 24 hrs: Laboratory Results - last 24 hr 02/24/21 02/24/21 02/24/21 Range/Units 08:15 08:15 08:15 WBC 9.93 (3.98-10.04) K/mm3 RBC 3.63 L (3.98-5.22) M/mm3 Hgb 10.1 L D (11.2-15.7) gm/dl Hct 30.9 L (34.1-44.9) % MCV 85.1 (79.4-94.8) fl MCH 27.8 (25.6-32.2) pg MCHC 32.7 (32.2-35.5) g/dl RDW Std Deviation 40.4 (36.4-46.3) fL Plt Count 454 H D (182-369) K/mm3 MPV 10.0 (9.4-12.3) fl Neut % (Auto) 77.9 H (34.0-71.1) % Lymph % (Auto) 11.1 L (19.3-51.7) % [place] % (Auto) 8.8 (4.7-12.5) % Eos % (Auto) 0.1 L (0.7-5.8) Baso % (Auto) 0.1 (0.1-1.2) % Neut # (Auto) 7.74 H (1.56-6.13) K/mm3 Lymph # (Auto) 1.10 L (1.18-3.74) K/mm3 [place] # (Auto) 0.87 H (0.24-0.36) K/mm3 Eos # (Auto) 0.01 L (0.04-0.36) K/mm3 Baso # (Auto) 0.01 (0.01-0.08) K/mm3 Manual Slide Review Abnormal smear PT 10.4 (9.7-12.0) SECONDS INR 0.97 APTT 26.4 (21.7-31.4) SECONDS D-Dimer, Quantitative 1.22 H (0.19-0.50) mg/L Puncture Site ABG pH (7.35-7.45) ABG pCO2 (35.0-45.0) mmHg ABG pO2 (80.0-100.0) mmHg ABG HCO3 (22.0-26.0) meq/L ABG O2 Saturation (96.0-97.0) % ABG Base Excess (-2-2.0) Kadeem Test A-a Gradient mmHg O2 Delivery Device Oxygen Flow Rate FiO2 (21.00-100.00) % Sodium 135 L (136-145) mEq/L Potassium 4.1 (3.5-5.1) mEq/L Chloride 97 L (98-107) mEq/L Carbon Dioxide 26 (21-32) mEq/L Anion Gap 16.1 H (5-15) BUN 16 (7-18) mg/dL Creatinine 1.2 H (0.55-1.02) mg/dL Est Cr Clr Drug Dosing 36.60 mL/min Estimated GFR (MDRD) 45 (>60) mL/min BUN/Creatinine Ratio 13.3 L (14-18) Glucose 363 H (80-115) mg/dL POC Glucose (80-115) mg/dL Lactic Acid (0.4-2.0) mmol/L Calcium 8.6 (8.5-10.1) mg/dL Magnesium 1.9 (1.8-2.4) mg/dl Ferritin (8-252) ng/ml Total Bilirubin 0.5 (0.2-1.0) mg/dL Direct Bilirubin 0.20 (0.0-0.2) mg/dl Indirect Bilirubin 0.3 (0.1-1.0) mg/dL AST 33 (15-37) U/L ALT 44 (14-59) U/L Alkaline Phosphatase 151 H (46-116) U/L Lactate Dehydrogenase 324 H (81-234) U/L Troponin I < 0.017 (0.00-0.056) ng/mL C-Reactive Protein 25.8 H* (<1.0) mg/dL Total Protein 8.0 (6.4-8.2) g/dl Albumin 2.8 L (3.4-5.0) g/dl Globulin 5.2 gm/dL Albumin/Globulin Ratio 0.5 L (1-2) 02/24/21 02/24/21 02/24/21 Range/Units 08:15 08:15 08:32 WBC (3.98-10.04) K/mm3 RBC (3.98-5.22) M/mm3 Hgb (11.2-15.7) gm/dl Hct (34.1-44.9) % MCV (79.4-94.8) fl MCH (25.6-32.2) pg MCHC (32.2-35.5) g/dl RDW Std Deviation (36.4-46.3) fL Plt Count (182-369) K/mm3 MPV (9.4-12.3) fl Neut % (Auto) (34.0-71.1) % Lymph % (Auto) (19.3-51.7) % [place] % (Auto) (4.7-12.5) % Eos % (Auto) (0.7-5.8) Baso % (Auto) (0.1-1.2) % Neut # (Auto) (1.56-6.13) K/mm3 Lymph # (Auto) (1.18-3.74) K/mm3 [place] # (Auto) (0.24-0.36) K/mm3 Eos # (Auto) (0.04-0.36) K/mm3 Baso # (Auto) (0.01-0.08) K/mm3 Manual Slide Review PT (9.7-12.0) SECONDS INR APTT (21.7-31.4) SECONDS D-Dimer, Quantitative (0.19-0.50) mg/L Puncture Site Lt radial ABG pH 7.45 (7.35-7.45) ABG pCO2 35.6 (35.0-45.0) mmHg ABG pO2 88.0 (80.0-100.0) mmHg ABG HCO3 24.4 (22.0-26.0) meq/L ABG O2 Saturation 96.6 (96.0-97.0) % ABG Base Excess 1.1 (-2-2.0) Kadeem Test Positive A-a Gradient 67 mmHg O2 Delivery Device Nasal cannula Oxygen Flow Rate 2.0 FiO2 28.00 (21.00-100.00) % Sodium (136-145) mEq/L Potassium (3.5-5.1) mEq/L Chloride (98-107) mEq/L Carbon Dioxide (21-32) mEq/L Anion Gap (5-15) BUN (7-18) mg/dL Creatinine (0.55-1.02) mg/dL Est Cr Clr Drug Dosing mL/min Estimated GFR (MDRD) (>60) mL/min BUN/Creatinine Ratio (14-18) Glucose (80-115) mg/dL POC Glucose (80-115) mg/dL Lactic Acid 1.5 (0.4-2.0) mmol/L Calcium (8.5-10.1) mg/dL Magnesium (1.8-2.4) mg/dl Ferritin 599 H (8-252) ng/ml Total Bilirubin (0.2-1.0) mg/dL Direct Bilirubin (0.0-0.2) mg/dl Indirect Bilirubin (0.1-1.0) mg/dL AST (15-37) U/L ALT (14-59) U/L Alkaline Phosphatase (46-116) U/L Lactate Dehydrogenase (81-234) U/L Troponin I (0.00-0.056) ng/mL C-Reactive Protein (<1.0) mg/dL Total Protein (6.4-8.2) g/dl Albumin (3.4-5.0) g/dl Globulin gm/dL Albumin/Globulin Ratio (1-2) 02/24/21 Range/Units 12:03 WBC (3.98-10.04) K/mm3 RBC (3.98-5.22) M/mm3 Hgb (11.2-15.7) gm/dl Hct (34.1-44.9) % MCV (79.4-94.8) fl MCH (25.6-32.2) pg MCHC (32.2-35.5) g/dl RDW Std Deviation (36.4-46.3) fL Plt Count (182-369) K/mm3 MPV (9.4-12.3) fl Neut % (Auto) (34.0-71.1) % Lymph % (Auto) (19.3-51.7) % [place] % (Auto) (4.7-12.5) % Eos % (Auto) (0.7-5.8) Baso % (Auto) (0.1-1.2) % Neut # (Auto) (1.56-6.13) K/mm3 Lymph # (Auto) (1.18-3.74) K/mm3 [place] # (Auto) (0.24-0.36) K/mm3 Eos # (Auto) (0.04-0.36) K/mm3 Baso # (Auto) (0.01-0.08) K/mm3 Manual Slide Review PT (9.7-12.0) SECONDS INR APTT (21.7-31.4) SECONDS D-Dimer, Quantitative (0.19-0.50) mg/L Puncture Site ABG pH (7.35-7.45) ABG pCO2 (35.0-45.0) mmHg ABG pO2 (80.0-100.0) mmHg ABG HCO3 (22.0-26.0) meq/L ABG O2 Saturation (96.0-97.0) % ABG Base Excess (-2-2.0) Kadeem Test A-a Gradient mmHg O2 Delivery Device Oxygen Flow Rate FiO2 (21.00-100.00) % Sodium (136-145) mEq/L Potassium (3.5-5.1) mEq/L Chloride (98-107) mEq/L Carbon Dioxide (21-32) mEq/L Anion Gap (5-15) BUN (7-18) mg/dL Creatinine (0.55-1.02) mg/dL Est Cr Clr Drug Dosing mL/min Estimated GFR (MDRD) (>60) mL/min BUN/Creatinine Ratio (14-18) Glucose (80-115) mg/dL POC Glucose 295 H (80-115) mg/dL Lactic Acid (0.4-2.0) mmol/L Calcium (8.5-10.1) mg/dL Magnesium (1.8-2.4) mg/dl Ferritin (8-252) ng/ml Total Bilirubin (0.2-1.0) mg/dL Direct Bilirubin (0.0-0.2) mg/dl Indirect Bilirubin (0.1-1.0) mg/dL AST (15-37) U/L ALT (14-59) U/L Alkaline Phosphatase (46-116) U/L Lactate Dehydrogenase (81-234) U/L Troponin I (0.00-0.056) ng/mL C-Reactive Protein (<1.0) mg/dL Total Protein (6.4-8.2) g/dl Albumin (3.4-5.0) g/dl Globulin gm/dL Albumin/Globulin Ratio (1-2) Result Diagrams: 02/24/21 08:15 02/24/21 08:15 Sepsis Event Note - Evaluation Sepsis Screening Result: No Definite Risk - Focused Exam Vital Signs: Vital Signs Temp Pulse Resp BP Pulse Ox 02/24/21 10:19 82 16 146/75 H 95 02/24/21 07:42 100.2 F 89 17 180/77 H 89 L - Problem List (1) HLD (hyperlipidemia) SNOMED Code(s): 66963056 ICD Code: E78.5 - HYPERLIPIDEMIA, UNSPECIFIED Status: Chronic Priority: Low Current Visit: No Qualifiers: Hyperlipidemia type: unspecified Qualified Code(s): E78.5 - Hyperlipidemia, unspecified (2) HTN (hypertension) SNOMED Code(s): 33500240 ICD Code: I10 - ESSENTIAL (PRIMARY) HYPERTENSION Status: Chronic Priority: Low Current Visit: No Qualifiers: Hypertension type: unspecified Qualified Code(s): I10 - Essential (primary) hypertension (3) Arthritis SNOMED Code(s): 3297034 ICD Code: M19.90 - UNSPECIFIED OSTEOARTHRITIS, UNSPECIFIED SITE Status: Chronic Priority: Low Current Visit: No (4) History of syncope SNOMED Code(s): 822223898017943 ICD Code: Z87.898 - PERSONAL HISTORY OF OTHER SPECIFIED CONDITIONS Status: Chronic Priority: Low Current Visit: No (5) Type I diabetes mellitus SNOMED Code(s): 32288077 ICD Code: E10.9 - TYPE 1 DIABETES MELLITUS WITHOUT COMPLICATIONS Status: Chronic Priority: Low Current Visit: No Qualifiers: Diabetes mellitus complication status: with other specified complication Qualified Code(s): E10.69 - Type 1 diabetes mellitus with other specified complication (6) COVID-19 SNOMED Code(s): 905393270 ICD Code: U07.1 - COVID-19 Status: Acute Priority: High Current Visit: Yes (7) Hypoxia SNOMED Code(s): 276909383 ICD Code: R09.02 - HYPOXEMIA Status: Acute Priority: High Current Visit: Yes (8) Pneumonia due to COVID-19 virus SNOMED Code(s): 679211129270552211 ICD Code: U07.1 - COVID-19; J12.82 - PNEUMONIA DUE TO CORONAVIRUS DISEASE 2019 Status: Acute Priority: High Current Visit: Yes (9) History of NH (myocardial infarction) SNOMED Code(s): 569169769 ICD Code: I25.2 - OLD MYOCARDIAL INFARCTION Status: Chronic Priority: Medium Current Visit: No (10) High anion gap metabolic acidosis SNOMED Code(s): 41948509 ICD Code: E87.2 - ACIDOSIS Status: Acute Priority: Medium Current Visit: Yes (11) Hyponatremia SNOMED Code(s): 78965254 ICD Code: E87.1 - HYPO-OSMOLALITY AND HYPONATREMIA Status: Acute Priority: Medium Current Visit: Yes (12) Acute kidney injury SNOMED Code(s): 94146579, 30659279 ICD Code: N17.9 - ACUTE KIDNEY FAILURE, UNSPECIFIED Status: Acute Priority: Medium Current Visit: Yes (13) Elevated d-dimer SNOMED Code(s): 835238631 ICD Code: R79.89 - OTHER SPECIFIED ABNORMAL FINDINGS OF BLOOD CHEMISTRY Status: Acute Priority: Medium Current Visit: Yes (14) Vitamin D deficiency SNOMED Code(s): 61761596 ICD Code: E55.9 - VITAMIN D DEFICIENCY, UNSPECIFIED Status: Acute Priority: High Current Visit: Yes Problem List Initiated/Reviewed/Updated: Yes Orders Last 24hrs: Active Orders 24 hr Category Date Time Status Patient Status [ADT] Routine ADT 02/24/21 10:21 Active Accu Check [Blood Glucose Check, Bedside] [] Care 02/24/21 12:40 Ordered QIDACANDBED Cardiac Monitoring [RC] . DIRECTED Care 02/24/21 08:04 Active Cardiac Monitoring [] CONTINUOUS Care 02/24/21 12:38 Ordered EKG Documentation Completion [] STAT Care 02/24/21 08:05 Active Height and Weight [] DAILY Care 02/24/21 12:37 Ordered Intake and Output [] QSHIFT Care 02/24/21 12:38 Ordered Nurse Communication: Isolation [RC] ASDIRECTED Care 02/24/21 12:42 Ordered Oxygen Therapy [RC] PRN Care 02/24/21 08:04 Active Peripheral IV Care [RC] . DIRECTED Care 02/24/21 08:04 Active Positioning, Patient [RC] ASDIRECTED Care 02/24/21 12:42 Ordered Pulse Oximetry [RC] CONTINUOUS Care 02/24/21 12:38 Ordered RT Incentive Spirometry [RC] ASDIRECTED Care 02/24/21 12:42 Ordered Up With Assistance [RC] ASDIRECTED Care 02/24/21 12:37 Ordered VTE/DVT Education [RC] PER UNIT ROUTINE Care 02/24/21 12:38 Ordered Vital Signs [RC] Q4H Care 02/24/21 12:38 Ordered Respiratory Care Assess and Treatment [CONS] Routine Cons 02/24/21 12:37 Ordered ADA Diabetic [[place] [employer] Diet] [DIET Diet 02/24/21 Lunch Active ] A1C [GLYCOSYLATED HEMOGLOBIN,HGBA1C] [CHEM] Routine Lab 02/24/21 12:41 Ordered CBC WITH AUTO DIFF [HEME] AM Lab 02/25/21 05:11 Ordered CBC WITH AUTO DIFF [HEME] AM Lab 02/26/21 05:11 Ordered CBC WITH AUTO DIFF [HEME] AM Lab 02/27/21 05:11 Ordered CBC WITH AUTO DIFF [HEME] AM Lab 02/28/21 05:11 Ordered CBC WITH AUTO DIFF [HEME] AM Lab 03/01/21 05:11 Ordered CMP [COMPREHENSIVE METABOLIC PN,CMP] [CHEM] AM Lab 02/25/21 05:11 Ordered CMP [COMPREHENSIVE METABOLIC PN,CMP] [CHEM] AM Lab 02/26/21 05:11 Ordered CMP [COMPREHENSIVE METABOLIC PN,CMP] [CHEM] AM Lab 02/27/21 05:11 Ordered CMP [COMPREHENSIVE METABOLIC PN,CMP] [CHEM] AM Lab 02/28/21 05:11 Ordered CMP [COMPREHENSIVE METABOLIC PN,CMP] [CHEM] AM Lab 03/01/21 05:11 Ordered CRP [C-REACTIVE PROTEIN] [CHEM] AM Lab 02/25/21 05:11 Ordered CRP [C-REACTIVE PROTEIN] [CHEM] AM Lab 02/26/21 05:11 Ordered CRP [C-REACTIVE PROTEIN] [CHEM] AM Lab 02/27/21 05:11 Ordered CRP [C-REACTIVE PROTEIN] [CHEM] AM Lab 02/28/21 05:11 Ordered CRP [C-REACTIVE PROTEIN] [CHEM] AM Lab 03/01/21 05:11 Ordered CULTURE BLOOD [BC] Stat Lab 02/24/21 08:15 Received CULTURE BLOOD [BC] Stat Lab 02/24/21 08:25 Received DD [D-DIMER QUANTITATIVE] [COAG] Q48H Lab 02/26/21 12:42 Ordered DD [D-DIMER QUANTITATIVE] [COAG] Q48H Lab 02/28/21 12:42 Ordered DD [D-DIMER QUANTITATIVE] [COAG] Q48H Lab 03/02/21 12:42 Ordered MAGNESIUM [CHEM] AM Lab 02/25/21 05:11 Ordered MAGNESIUM [CHEM] AM Lab 02/26/21 05:11 Ordered MAGNESIUM [CHEM] AM Lab 02/27/21 05:11 Ordered MAGNESIUM [CHEM] AM Lab 02/28/21 05:11 Ordered MAGNESIUM [CHEM] AM Lab 03/01/21 05:11 Ordered VITAMIN D,25-HYDROXY [CHEM] Routine Lab 02/24/21 12:41 Ordered Acetaminophen [TylenoL] Med 02/24/21 12:37 Ordered 650 mg PO Q4H PRN Alogliptin Benzoate [Alogliptin] Med 02/25/21 09:00 Ordered 25 mg PO DAILY Aspirin [Ecotrin] Med 02/24/21 12:45 Ordered 325 mg PO DAILY Cholecalciferol (Vitamin D3) [Vitamin D3] Med 02/24/21 12:45 Ordered 5,000 unit PO DAILY Docusate Sodium [Colace] Med 02/24/21 12:37 Ordered 100 mg PO BID PRN Enoxaparin [Lovenox] Med 02/25/21 09:00 Ordered 40 mg SUBCUT DAILY Famotidine [Pepcid] Med 02/24/21 21:00 Ordered 20 mg PO BID Insulin Lispro [HumaLOG] Med 02/24/21 17:00 Ordered See Protocol SUBCUT QIDACANDBED Magnesium Hydroxide [Milk of Magnesia] Med 02/24/21 12:37 Ordered 30 ml PO Q12H PRN Melatonin Med 02/24/21 21:00 Ordered 9 mg PO BEDTIME Metoprolol Tartrate [Lopressor] Med 02/24/21 21:00 Ordered 25 mg PO BID Ondansetron [Zofran] Med 02/24/21 12:37 Ordered 4 mg IV Q6H PRN Remdesivir 100 mg Med 02/25/21 09:00 Ordered Sodium Chloride 0.9% [Normal Saline] 100 ml IV DAILY Sodium Chloride 0.9% [Normal Saline] 1,000 ml Med 02/24/21 08:15 Active IV .BOLUS Sodium Chloride 0.9% [Saline Flush] Med 02/24/21 08:04 Active 10 ml FLUSH ASDIRECTED PRN Zinc Sulfate [Zincate] Med 02/24/21 12:45 Ordered 220 mg PO DAILY atorvaSTATin [Lipitor] Med 02/25/21 09:00 Ordered 40 mg PO DAILY dexAMETHasone Med 02/25/21 09:00 Ordered 6 mg PO DAILY Blood Culture x2 Reflex Set [OM.PC] Stat Ot 02/24/21 08:05 Ordered ED Antiemetic Medication Reflex [OM.PC] Stat Ot 02/24/21 08:04 Ordered Isolation [COMM] Stat Ot 02/24/21 12:42 Ordered Peripheral IV Insertion Adult [OM.PC] Stat Ot 02/24/21 08:04 Ordered RT Acapella [RESPCARE] Routine Ot 02/24/21 12:42 Ordered Resuscitation Status Routine Resus Stat 02/24/21 12:37 Ordered Medication Orders Acetaminophen (Acetaminophen 325 Mg Tab) 650 mg PO Q4H PRN PRN Reason: Pain (Mild 1-3)/fever Alogliptin Benzoate (Alogliptin 25 Mg Tab) 25 mg PO DAILY [facility] Aspirin (Aspirin 325 Mg Tab.Ec) 325 mg PO DAILY [facility] Atorvastatin Calcium (Atorvastatin 40 Mg Tab) 40 mg PO DAILY [facility] Cholecalciferol (Cholecalciferol (Vitamin D3) 5,000 Unit Cap) 5,000 unit PO DAILY [facility] Dexamethasone (Dexamethasone 4 Mg Tab) 6 mg PO DAILY [facility] Stop: 03/05/21 09:01 Docusate Sodium (Docusate Sodium 100 Mg Cap) 100 mg PO BID PRN PRN Reason: Constipation Enoxaparin Sodium (Enoxaparin 40 Mg/0.4 Ml Syringe) 40 mg SUBCUT DAILY [facility] Famotidine (Famotidine 20 Mg Tab) 20 mg PO BEDTIME [facility] Sodium Chloride (Normal Saline) 1,000 mls @ 1,000 mls/hr IV .BOLUS [facility] Last Admin: 02/24/21 08:23 Dose: 1,000 mls/hr Documented by: BUDDY Remdesivir 100 mg/ Sodium (Chloride) 100 mls @ 100 mls/hr IV DAILY [facility] Stop: 02/28/21 09:59 Insulin Human Lispro (Insulin Lispro 100 Unit/Ml) 0 unit SUBCUT QIDACANDBED S CH; Protocol Magnesium Hydroxide (Magnesium Hydroxide 400 Mg/5 Ml Susp 30 Ml Cup) 30 ml PO Q12H PRN PRN Reason: Constipation Melatonin (Melatonin 3 Mg Tab) 9 mg PO BEDTIME [facility] Metoprolol Tartrate (Metoprolol Tartrate 25 Mg Tab) 25 mg PO BID [facility] Ondansetron HCl (Ondansetron 4 Mg/2 Ml Sdv) 4 mg IV Q6H PRN PRN Reason: Nausea/Vomiting Sodium Chloride (Sodium Chloride 0.9% 10 Ml Syringe) 10 ml FLUSH ASDIRECTED PRN PRN Reason: Keep Vein Open Last Admin: 02/24/21 08:23 Dose: 10 ml Documented by: BUDDY Zinc Sulfate (Zinc Sulfate 220 Mg Cap) 220 mg PO DAILY [facility] Assessment/Plan Comment:: Assessment - day of admission 02/24/2021 * 70-year-old female presents to ED with fever, chills, cough, body aches, shortness of breath, generalized weakness, nausea and vomiting. * Known COVID-19 positive diagnosed on 02/17/2021 at [facility]. * Received the [employer] Covid vaccine at [facility] on January 25. * Reports she began feeling poor about 10 days ago. * History of HLD, HTN, arthritis, syncope with loss of consciousness, type I DM, prior NH. * Twelve-lead EKG in ED shows sinus rhythm at 79 bpm. * Labs obtained in ED: * WBC 9.93 * Hemoglobin 10.1 * Platelet 454,000 * Neutrophils 77.9% * INR 0.97 * APTT 26.4 * D-dimer 1.22 * Sodium 135 * Potassium 4.1 * Chloride 97 * Carbon dioxide 26 * Anion gap 16.1 * BUN 16, creatinine 1.2, GFR 45 * Glucose 363 * Magnesium 1.9 * Total bilirubin 0.5 * AST 33, ALT 44, alkaline phosphatase 151 * LDH 324 * Troponin less than 0.017 * CRP 25.8 * Albumin 2.8 * Lactic acid 1.5 * Ferritin 599 * ABG obtained in left radial: pH 7.45, PCO2 35.6, PO2 of 88.0, HCO3 24.4, O2 saturation 96.6, AA gradient 67, on nasal cannula 2 L * Given 1 L fluid bolus, 6 mg dexamethasone IV push, 4 mg Zofran, and 250 mg remdesivir. * Chest x-ray shows increased density within both lung bases, worse on the right side. Increased density within the left upper lung seen. Findings could represent areas of aspiration as well as bilateral pneumonia. Please rule out Covid disease. Other findings which are stable. * Subsequently admitted to the ICU as MedSurg overflow on telemetry for management of her COVID-19 pneumonia. Plan: COVID-19 Hypoxia Pneumonia due to COVID-19 virus Elevated d-dimer Vitamin D deficiency * O2 as needed to keep saturations 88-95% * PRN albuterol inhaler * Remdesivir - day 11/22 * Rocephin 2gm - day 11/22 * Azithromycin 500mg - day 11/22 * Dexamethasone - day 11/27 * IS/Acapella * RT consultation * Pepcid 20mg BID * Start ASA 325mg daily * Lovenox 40mg daily * Ambulate TID * Up with assistance/Up to chair * Prone whenever able * Repeat CXR as needed * Daily labs * D-Dimer Q48 hr * Melatonin 9mg at bedtime * Vitamin D supplementation - 5000 units daily * Zinc supplementation * Check Vitamin D level * Telemetry/continuous pulse oximetry * Airborne/contact precautions Acute kidney injury High anion gap metabolic acidosis Hyponatremia * Given 1L bolus in ED * Caution with IV fluids due to COVID * Monitor labs * Avoid nephrotoxic agents if possible Type I diabetes mellitus * Check A1C * QID AC and Bedtime blood glucose checks * Hold home PO diabetic meds * Medium sliding scale insulin * Anticipate blood glucose level increase due to steroids * Start Alogliptin daily * Diabetic diet HLD (hyperlipidemia) HTN (hypertension) Arthritis History of syncope History of NH (myocardial infarction) * No acute concerns * Telemetry * Monitor vital signs Code Status: Full code PCP: Dr. Hawkins (retired, will need to establish new PCP at discharge) DVT prophylaxis: Lovenox and 325mg ASA daily Disposition: Patient admitted to ICU as MSP overflow on telemetry for management of her COVID-19 symptoms. LOS >96 Hrs due to treatment for COVID-19 - Mortality Measure Prognosis:: Good
[2021-02-24 13:10] LABS: HEMOGLOBIN A1C 10.1 %
[2021-02-24] MEDS ORDERED: Insulin Lispro 100 UNIT/ML 10 ML Vial SUBCUT ONE ×2 (13:44→17:00)
[2021-02-24] MEDS ORDERED: Azithromycin 500 MG in Sodium Chloride 0.9% 250 ML IV SCH (14:00)
[2021-02-24] MEDS ORDERED: Albuterol 6.7 GM Inhaler INH PRN (14:36)
[2021-02-24] MEDS: Zinc Sulfate 220 MG Cap PO SCH (14:45)
[2021-02-24] MEDS: Cholecalciferol (Vitamin D3) 5,000 UNIT Cap PO SCH (14:45)
[2021-02-24] MEDS: Aspirin 325 MG Tab.EC PO SCH (14:46)
[2021-02-24] MEDS: cefTRIAXone 2 GM in Sodium Chloride 0.9% 100 ML IV SCH (14:48)
[2021-02-24] MEDS: Insulin Lispro 100 UNIT/ML 10 ML Vial SUBCUT SCH ×2 (19:44→21:59)
[2021-02-24] MEDS ORDERED: Insulin Glarg,Human.Rec.Analog 100 Unit/ML SUBCUT SCH (21:00)
[2021-02-24] MEDS: Metoprolol Tartrate 25 MG Tab PO SCH (21:36)
[2021-02-24] MEDS: Famotidine 20 MG Tab PO SCH (21:36)
[2021-02-24] MEDS: Melatonin 3 MG Tab PO SCH (21:36)
[2021-02-25] MEDS: Dexamethasone 4 MG Tab PO SCH (08:08)
[2021-02-25] MEDS: Cholecalciferol (Vitamin D3) 5,000 UNIT Cap PO SCH (08:08)
[2021-02-25] MEDS: Metoprolol Tartrate 25 MG Tab PO SCH ×2 (08:09→20:16)
[2021-02-25] MEDS: Zinc Sulfate 220 MG Cap PO SCH (08:10)
[2021-02-25] MEDS: Aspirin 325 MG Tab.EC PO SCH (08:10)
[2021-02-25] MEDS: Enoxaparin 40 MG/0.4 ML Syringe SUBCUT SCH (08:10)
[2021-02-25] MEDS: Insulin Lispro 100 UNIT/ML 10 ML Vial SUBCUT SCH ×4 (08:10→22:09)
[2021-02-25] MEDS: atorvaSTATin 40 MG Tab PO SCH (08:10)
[2021-02-25] MEDS ORDERED: REMDESIVIR 100 MG in Sodium Chloride 0.9% 100 ML IV SCH (09:00)
--- NOTE | 2021-02-25 09:40 | PCM.PN ---
- General Info Date of Service: 02/25/21 Admission Dx/Problem (Free Text): Admission Diagnosis/Problem Admission Diagnosis/Problem Pneumonia Subjective Update: The patient is a 70-year-old lady who was admitted to acute hospitalization on February 19, 2021 due to Covid associated pneumonia. The patient today says that she is doing better. She still feels short of breath. Some fatigue admitted. Functional Status: Reports: Pain Controlled, Tolerating Diet - Review of Systems General: Reports: Weakness HEENT: Reports: No Symptoms Pulmonary: Reports: Shortness of Breath Cardiovascular: Reports: No Symptoms Gastrointestinal: Reports: No Symptoms Genitourinary: Reports: No Symptoms Musculoskeletal: Reports: No Symptoms Skin: Reports: No Symptoms Neurological: Reports: No Symptoms Psychiatric: Reports: No Symptoms - Patient Data Vitals - Most Recent: Last Vital Signs Temp 36.1 C 02/25/21 08:00 Pulse 79 02/25/21 08:09 Resp 22 H 02/25/21 08:00 BP 134/65 02/25/21 08:09 Pulse Ox 89 L 02/25/21 09:08 Weight - Most Recent: 90.492 kg I&O - Last 24 Hours: Intake & Output 02/24/21 02/25/21 02/25/21 22:59 06:59 14:59 Intake Total 620 300 Balance 620 300 Lab Results Last 24 Hours: Laboratory Results - last 24 hr 02/24/21 02/24/21 02/24/21 Range/Units 08:15 08:15 08:15 WBC (3.98-10.04) K/mm3 RBC (3.98-5.22) M/mm3 Hgb (11.2-15.7) gm/dl Hct (34.1-44.9) % MCV (79.4-94.8) fl MCH (25.6-32.2) pg MCHC (32.2-35.5) g/dl RDW Std Deviation (36.4-46.3) fL Plt Count (182-369) K/mm3 MPV (9.4-12.3) fl Neut % (Auto) (34.0-71.1) % Lymph % (Auto) (19.3-51.7) % Trigg % (Auto) (4.7-12.5) % Eos % (Auto) (0.7-5.8) Baso % (Auto) (0.1-1.2) % Neut # (Auto) (1.56-6.13) K/mm3 Lymph # (Auto) (1.18-3.74) K/mm3 Trigg # (Auto) (0.24-0.36) K/mm3 Eos # (Auto) (0.04-0.36) K/mm3 Baso # (Auto) (0.01-0.08) K/mm3 Manual Slide Review Sodium 135 L (136-145) mEq/L Potassium 4.1 (3.5-5.1) mEq/L Chloride 97 L (98-107) mEq/L Carbon Dioxide 26 (21-32) mEq/L Anion Gap 16.1 H (5-15) BUN 16 (7-18) mg/dL Creatinine 1.2 H (0.55-1.02) mg/dL Est Cr Clr Drug Dosing 36.60 mL/min Estimated GFR (MDRD) 45 (>60) mL/min BUN/Creatinine Ratio 13.3 L (14-18) Glucose 363 H (80-115) mg/dL POC Glucose (80-115) mg/dL Hemoglobin A1c ( - 5.6) % Calcium 8.6 (8.5-10.1) mg/dL Magnesium 1.9 (1.8-2.4) mg/dl Ferritin 599 H (8-252) ng/ml Total Bilirubin 0.5 (0.2-1.0) mg/dL Direct Bilirubin 0.20 (0.0-0.2) mg/dl Indirect Bilirubin 0.3 (0.1-1.0) mg/dL AST 33 (15-37) U/L ALT 44 (14-59) U/L Alkaline Phosphatase 151 H (46-116) U/L Lactate Dehydrogenase 324 H (81-234) U/L Troponin I < 0.017 (0.00-0.056) ng/mL C-Reactive Protein 25.8 H* (<1.0) mg/dL Total Protein 8.0 (6.4-8.2) g/dl Albumin 2.8 L (3.4-5.0) g/dl Globulin 5.2 gm/dL Albumin/Globulin Ratio 0.5 L (1-2) Vitamin D 25-Hydroxy 26.2 L (30.0-100.0) ng/ml 02/24/21 02/24/21 02/24/21 Range/Units 08:15 12:03 16:42 WBC (3.98-10.04) K/mm3 RBC (3.98-5.22) M/mm3 Hgb (11.2-15.7) gm/dl Hct (34.1-44.9) % MCV (79.4-94.8) fl MCH (25.6-32.2) pg MCHC (32.2-35.5) g/dl RDW Std Deviation (36.4-46.3) fL Plt Count (182-369) K/mm3 MPV (9.4-12.3) fl Neut % (Auto) (34.0-71.1) % Lymph % (Auto) (19.3-51.7) % Trigg % (Auto) (4.7-12.5) % Eos % (Auto) (0.7-5.8) Baso % (Auto) (0.1-1.2) % Neut # (Auto) (1.56-6.13) K/mm3 Lymph # (Auto) (1.18-3.74) K/mm3 Trigg # (Auto) (0.24-0.36) K/mm3 Eos # (Auto) (0.04-0.36) K/mm3 Baso # (Auto) (0.01-0.08) K/mm3 Manual Slide Review Sodium (136-145) mEq/L Potassium (3.5-5.1) mEq/L Chloride (98-107) mEq/L Carbon Dioxide (21-32) mEq/L Anion Gap (5-15) BUN (7-18) mg/dL Creatinine (0.55-1.02) mg/dL Est Cr Clr Drug Dosing mL/min Estimated GFR (MDRD) (>60) mL/min BUN/Creatinine Ratio (14-18) Glucose 415 H (80-115) mg/dL POC Glucose 295 H (80-115) mg/dL Hemoglobin A1c 10.1 H ( - 5.6) % Calcium (8.5-10.1) mg/dL Magnesium (1.8-2.4) mg/dl Ferritin (8-252) ng/ml Total Bilirubin (0.2-1.0) mg/dL Direct Bilirubin (0.0-0.2) mg/dl Indirect Bilirubin (0.1-1.0) mg/dL AST (15-37) U/L ALT (14-59) U/L Alkaline Phosphatase (46-116) U/L Lactate Dehydrogenase (81-234) U/L Troponin I (0.00-0.056) ng/mL C-Reactive Protein (<1.0) mg/dL Total Protein (6.4-8.2) g/dl Albumin (3.4-5.0) g/dl Globulin gm/dL Albumin/Globulin Ratio (1-2) Vitamin D 25-Hydroxy (30.0-100.0) ng/ml 02/24/21 02/24/21 02/24/21 Range/Units 19:05 21:35 23:34 WBC (3.98-10.04) K/mm3 RBC (3.98-5.22) M/mm3 Hgb (11.2-15.7) gm/dl Hct (34.1-44.9) % MCV (79.4-94.8) fl MCH (25.6-32.2) pg MCHC (32.2-35.5) g/dl RDW Std Deviation (36.4-46.3) fL Plt Count (182-369) K/mm3 MPV (9.4-12.3) fl Neut % (Auto) (34.0-71.1) % Lymph % (Auto) (19.3-51.7) % Trigg % (Auto) (4.7-12.5) % Eos % (Auto) (0.7-5.8) Baso % (Auto) (0.1-1.2) % Neut # (Auto) (1.56-6.13) K/mm3 Lymph # (Auto) (1.18-3.74) K/mm3 Trigg # (Auto) (0.24-0.36) K/mm3 Eos # (Auto) (0.04-0.36) K/mm3 Baso # (Auto) (0.01-0.08) K/mm3 Manual Slide Review Sodium (136-145) mEq/L Potassium (3.5-5.1) mEq/L Chloride (98-107) mEq/L Carbon Dioxide (21-32) mEq/L Anion Gap (5-15) BUN (7-18) mg/dL Creatinine (0.55-1.02) mg/dL Est Cr Clr Drug Dosing mL/min Estimated GFR (MDRD) (>60) mL/min BUN/Creatinine Ratio (14-18) Glucose (80-115) mg/dL POC Glucose 396 H 269 H 283 H (80-115) mg/dL Hemoglobin A1c ( - 5.6) % Calcium (8.5-10.1) mg/dL Magnesium (1.8-2.4) mg/dl Ferritin (8-252) ng/ml Total Bilirubin (0.2-1.0) mg/dL Direct Bilirubin (0.0-0.2) mg/dl Indirect Bilirubin (0.1-1.0) mg/dL AST (15-37) U/L ALT (14-59) U/L Alkaline Phosphatase (46-116) U/L Lactate Dehydrogenase (81-234) U/L Troponin I (0.00-0.056) ng/mL C-Reactive Protein (<1.0) mg/dL Total Protein (6.4-8.2) g/dl Albumin (3.4-5.0) g/dl Globulin gm/dL Albumin/Globulin Ratio (1-2) Vitamin D 25-Hydroxy (30.0-100.0) ng/ml 02/25/21 02/25/21 02/25/21 Range/Units 05:05 05:05 06:56 WBC 8.63 (3.98-10.04) K/mm3 RBC 3.18 L (3.98-5.22) M/mm3 Hgb 8.7 L (11.2-15.7) gm/dl Hct 27.5 L (34.1-44.9) % MCV 86.5 (79.4-94.8) fl MCH 27.4 (25.6-32.2) pg MCHC 31.6 L (32.2-35.5) g/dl RDW Std Deviation 40.9 (36.4-46.3) fL Plt Count 444 H (182-369) K/mm3 MPV 10.5 (9.4-12.3) fl Neut % (Auto) 72.8 H (34.0-71.1) % Lymph % (Auto) 15.2 L (19.3-51.7) % Trigg % (Auto) 9.7 (4.7-12.5) % Eos % (Auto) 0.2 L (0.7-5.8) Baso % (Auto) 0.2 (0.1-1.2) % Neut # (Auto) 6.28 H (1.56-6.13) K/mm3 Lymph # (Auto) 1.31 (1.18-3.74) K/mm3 Trigg # (Auto) 0.84 H (0.24-0.36) K/mm3 Eos # (Auto) 0.02 L (0.04-0.36) K/mm3 Baso # (Auto) 0.02 (0.01-0.08) K/mm3 Manual Slide Review Abnormal smear Sodium 137 (136-145) mEq/L Potassium 4.0 (3.5-5.1) mEq/L Chloride 99 (98-107) mEq/L Carbon Dioxide 25 (21-32) mEq/L Anion Gap 17.0 H (5-15) BUN 21 H (7-18) mg/dL Creatinine 1.2 H (0.55-1.02) mg/dL Est Cr Clr Drug Dosing 36.60 mL/min Estimated GFR (MDRD) 45 (>60) mL/min BUN/Creatinine Ratio 17.5 (14-18) Glucose 298 H (80-115) mg/dL POC Glucose 271 H (80-115) mg/dL Hemoglobin A1c ( - 5.6) % Calcium 8.5 (8.5-10.1) mg/dL Magnesium 1.7 L (1.8-2.4) mg/dl Ferritin (8-252) ng/ml Total Bilirubin 0.3 (0.2-1.0) mg/dL Direct Bilirubin (0.0-0.2) mg/dl Indirect Bilirubin (0.1-1.0) mg/dL AST 24 (15-37) U/L ALT 33 (14-59) U/L Alkaline Phosphatase 132 H (46-116) U/L Lactate Dehydrogenase (81-234) U/L Troponin I (0.00-0.056) ng/mL C-Reactive Protein 30.6 H* (<1.0) mg/dL Total Protein 6.9 (6.4-8.2) g/dl Albumin 2.3 L (3.4-5.0) g/dl Globulin 4.6 gm/dL Albumin/Globulin Ratio 0.5 L (1-2) Vitamin D 25-Hydroxy (30.0-100.0) ng/ml John Results Last 24 Hours: Microbiology 02/24/21 08:25 Aerobic Blood Culture - Preliminary Blood - Venous - Lab Draw NO GROWTH AFTER 1 DAY Anaerobic Blood Culture - Preliminary NO GROWTH AFTER 1 DAY 02/24/21 08:15 Aerobic Blood Culture - Preliminary Blood - Venous NO GROWTH AFTER 1 DAY Anaerobic Blood Culture - Preliminary NO GROWTH AFTER 1 DAY Med Orders - Current: Current Medications Acetaminophen (Acetaminophen 325 Mg Tab) 650 mg PO Q4H PRN PRN Reason: Pain (Mild 1-3)/fever Albuterol (Albuterol 6.7 Gm Inhaler) 0 gm INH Q2H PRN PRN Reason: SOB/Wheezing Alogliptin Benzoate (Alogliptin 12.5 Mg Tab) 12.5 mg PO DAILY [facility] Last Admin: 02/25/21 08:09 Dose: 12.5 mg Documented by: Aspirin (Aspirin 325 Mg Tab.Ec) 325 mg PO DAILY [facility] Last Admin: 02/25/21 08:10 Dose: 325 mg Documented by: Atorvastatin Calcium (Atorvastatin 40 Mg Tab) 40 mg PO DAILY [facility] Last Admin: 02/25/21 08:10 Dose: 40 mg Documented by: Cholecalciferol (Cholecalciferol (Vitamin D3) 5,000 Unit Cap) 5,000 unit PO DAILY [facility] Last Admin: 02/25/21 08:08 Dose: 5,000 unit Documented by: Dexamethasone (Dexamethasone 4 Mg Tab) 6 mg PO DAILY [facility] Stop: 03/05/21 09:01 Last Admin: 02/25/21 08:08 Dose: 6 mg Documented by: Docusate Sodium (Docusate Sodium 100 Mg Cap) 100 mg PO BID PRN PRN Reason: Constipation Enoxaparin Sodium (Enoxaparin 40 Mg/0.4 Ml Syringe) 40 mg SUBCUT DAILY [facility] Last Admin: 02/25/21 08:10 Dose: 40 mg Documented by: Famotidine (Famotidine 20 Mg Tab) 20 mg PO BEDTIME [facility] Last Admin: 02/24/21 21:36 Dose: 20 mg Documented by: Sodium Chloride (Normal Saline) 1,000 mls @ 1,000 mls/hr IV .BOLUS [facility] Last Admin: 02/24/21 08:23 Dose: 1,000 mls/hr Documented by: Ceftriaxone Sodium 2 gm/ (Sodium Chloride) 100 mls @ 200 mls/hr IV Q24H [facility] Stop: 02/28/21 14:29 Last Admin: 02/24/21 14:48 Dose: 200 mls/hr Documented by: Remdesivir 100 mg/ Sodium (Chloride) 100 mls @ 100 mls/hr IV Q24H [facility] Stop: 02/28/21 11:59 Azithromycin 500 mg/ Sodium (Chloride) 250 mls @ 250 mls/hr IV Q24H [facility] Stop: 02/26/21 16:59 Insulin Glargine (Insulin Glarg,Human.Rec.Analog 100 Unit/Ml) 10 unit SUBCUT BEDTIME [facility] Last Admin: 02/24/21 21:58 Dose: 10 units Documented by: Insulin Human Lispro (Insulin Lispro 100 Unit/Ml) 0 unit SUBCUT QIDACANDBED [facility]; Protocol Last Admin: 02/25/21 08:10 Dose: 6 units Documented by: Magnesium Hydroxide (Magnesium Hydroxide 400 Mg/5 Ml Susp 30 Ml Cup) 30 ml PO Q12H PRN PRN Reason: Constipation Melatonin (Melatonin 3 Mg Tab) 9 mg PO BEDTIME [facility] Last Admin: 02/24/21 21:36 Dose: 9 mg Documented by: Metoprolol Tartrate (Metoprolol Tartrate 25 Mg Tab) 25 mg PO BID [facility] Last Admin: 02/25/21 08:09 Dose: 25 mg Documented by: Ondansetron HCl (Ondansetron 4 Mg/2 Ml Sdv) 4 mg IV Q6H PRN PRN Reason: Nausea/Vomiting Sodium Chloride (Sodium Chloride 0.9% 10 Ml Syringe) 10 ml FLUSH ASDIRECTED PRN PRN Reason: Keep Vein Open Last Admin: 02/24/21 08:23 Dose: 10 ml Documented by: Zinc Sulfate (Zinc Sulfate 220 Mg Cap) 220 mg PO DAILY [facility] Last Admin: 02/25/21 08:10 Dose: 220 mg Documented by: Discontinued Medications Dexamethasone (Dexamethasone 4 Mg/Ml Sdv) 6 mg IVPUSH ONETIME ONE Stop: 02/24/21 10:00 Last Admin: 02/24/21 10:43 Dose: 6 mg Documented by: Remdesivir 200 mg/ Sodium (Chloride) 250 mls @ 250 mls/hr IV ONETIME ONE Stop: 02/24/21 10:00 Last Admin: 02/24/21 13:41 Dose: Not Given Documented by: Remdesivir 200 mg/ Sodium (Chloride) 250 mls @ 250 mls/hr IV ONETIME ONE Stop: 02/24/21 11:59 Last Admin: 02/24/21 10:43 Dose: 250 mls/hr Documented by: Remdesivir 100 mg/ Sodium (Chloride) 100 mls @ 100 mls/hr IV DAILY [facility] Stop: 02/28/21 09:59 Azithromycin 500 mg/ Sodium (Chloride) 250 mls @ 250 mls/hr IV Q24H [facility] Stop: 02/26/21 14:59 Last Admin: 02/24/21 16:06 Dose: 250 mls/hr Documented by: Insulin Human Lispro (Insulin Lispro 100 Unit/Ml) 0 unit SUBCUT ONETIME ONE; Protocol Stop: 02/24/21 13:45 Last Admin: 02/24/21 14:46 Dose: 6 units Documented by: Insulin Human Lispro (Insulin Lispro 100 Unit/Ml) 10 unit SUBCUT ONETIME ONE Stop: 02/24/21 17:01 Last Admin: 02/24/21 17:33 Dose: 10 units Documented by: Ondansetron HCl (Ondansetron 4 Mg/2 Ml Sdv) 4 mg IVPUSH ONETIME ONE Stop: 02/24/21 08:05 Last Admin: 02/24/21 08:23 Dose: 4 mg Documented by: - Exam Quality Assessment: Supplemental Oxygen General: Alert, Oriented, Cooperative HEENT: Pupils Equal, Pupils Reactive Neck: Supple, Trachea Midline Lungs: Normal Respiratory Effort, Crackles Cardiovascular: Regular Rate, Regular Rhythm GI/Abdominal Exam: Normal Bowel Sounds, No Distention (Female) Exam: Deferred Back Exam: Normal Inspection Extremities: Normal Inspection, No Pedal Edema Skin: Warm, Dry Neurological: No New Focal Deficit Psy/Mental Status: Alert, Normal Affect - Patient Data Lab Results Last 24 hrs: Laboratory Results - last 24 hr 02/24/21 02/24/21 02/24/21 Range/Units 08:15 08:15 08:15 WBC (3.98-10.04) K/mm3 RBC (3.98-5.22) M/mm3 Hgb (11.2-15.7) gm/dl Hct (34.1-44.9) % MCV (79.4-94.8) fl MCH (25.6-32.2) pg MCHC (32.2-35.5) g/dl RDW Std Deviation (36.4-46.3) fL Plt Count (182-369) K/mm3 MPV (9.4-12.3) fl Neut % (Auto) (34.0-71.1) % Lymph % (Auto) (19.3-51.7) % Trigg % (Auto) (4.7-12.5) % Eos % (Auto) (0.7-5.8) Baso % (Auto) (0.1-1.2) % Neut # (Auto) (1.56-6.13) K/mm3 Lymph # (Auto) (1.18-3.74) K/mm3 Trigg # (Auto) (0.24-0.36) K/mm3 Eos # (Auto) (0.04-0.36) K/mm3 Baso # (Auto) (0.01-0.08) K/mm3 Manual Slide Review Sodium 135 L (136-145) mEq/L Potassium 4.1 (3.5-5.1) mEq/L Chloride 97 L (98-107) mEq/L Carbon Dioxide 26 (21-32) mEq/L Anion Gap 16.1 H (5-15) BUN 16 (7-18) mg/dL Creatinine 1.2 H (0.55-1.02) mg/dL Est Cr Clr Drug Dosing 36.60 mL/min Estimated GFR (MDRD) 45 (>60) mL/min BUN/Creatinine Ratio 13.3 L (14-18) Glucose 363 H (80-115) mg/dL POC Glucose (80-115) mg/dL Hemoglobin A1c ( - 5.6) % Calcium 8.6 (8.5-10.1) mg/dL Magnesium 1.9 (1.8-2.4) mg/dl Ferritin 599 H (8-252) ng/ml Total Bilirubin 0.5 (0.2-1.0) mg/dL Direct Bilirubin 0.20 (0.0-0.2) mg/dl Indirect Bilirubin 0.3 (0.1-1.0) mg/dL AST 33 (15-37) U/L ALT 44 (14-59) U/L Alkaline Phosphatase 151 H (46-116) U/L Lactate Dehydrogenase 324 H (81-234) U/L Troponin I < 0.017 (0.00-0.056) ng/mL C-Reactive Protein 25.8 H* (<1.0) mg/dL Total Protein 8.0 (6.4-8.2) g/dl Albumin 2.8 L (3.4-5.0) g/dl Globulin 5.2 gm/dL Albumin/Globulin Ratio 0.5 L (1-2) Vitamin D 25-Hydroxy 26.2 L (30.0-100.0) ng/ml 02/24/21 02/24/21 02/24/21 Range/Units 08:15 12:03 16:42 WBC (3.98-10.04) K/mm3 RBC (3.98-5.22) M/mm3 Hgb (11.2-15.7) gm/dl Hct (34.1-44.9) % MCV (79.4-94.8) fl MCH (25.6-32.2) pg MCHC (32.2-35.5) g/dl RDW Std Deviation (36.4-46.3) fL Plt Count (182-369) K/mm3 MPV (9.4-12.3) fl Neut % (Auto) (34.0-71.1) % Lymph % (Auto) (19.3-51.7) % Trigg % (Auto) (4.7-12.5) % Eos % (Auto) (0.7-5.8) Baso % (Auto) (0.1-1.2) % Neut # (Auto) (1.56-6.13) K/mm3 Lymph # (Auto) (1.18-3.74) K/mm3 Trigg # (Auto) (0.24-0.36) K/mm3 Eos # (Auto) (0.04-0.36) K/mm3 Baso # (Auto) (0.01-0.08) K/mm3 Manual Slide Review Sodium (136-145) mEq/L Potassium (3.5-5.1) mEq/L Chloride (98-107) mEq/L Carbon Dioxide (21-32) mEq/L Anion Gap (5-15) BUN (7-18) mg/dL Creatinine (0.55-1.02) mg/dL Est Cr Clr Drug Dosing mL/min Estimated GFR (MDRD) (>60) mL/min BUN/Creatinine Ratio (14-18) Glucose 415 H (80-115) mg/dL POC Glucose 295 H (80-115) mg/dL Hemoglobin A1c 10.1 H ( - 5.6) % Calcium (8.5-10.1) mg/dL Magnesium (1.8-2.4) mg/dl Ferritin (8-252) ng/ml Total Bilirubin (0.2-1.0) mg/dL Direct Bilirubin (0.0-0.2) mg/dl Indirect Bilirubin (0.1-1.0) mg/dL AST (15-37) U/L ALT (14-59) U/L Alkaline Phosphatase (46-116) U/L Lactate Dehydrogenase (81-234) U/L Troponin I (0.00-0.056) ng/mL C-Reactive Protein (<1.0) mg/dL Total Protein (6.4-8.2) g/dl Albumin (3.4-5.0) g/dl Globulin gm/dL Albumin/Globulin Ratio (1-2) Vitamin D 25-Hydroxy (30.0-100.0) ng/ml 02/24/21 02/24/21 02/24/21 Range/Units 19:05 21:35 23:34 WBC (3.98-10.04) K/mm3 RBC (3.98-5.22) M/mm3 Hgb (11.2-15.7) gm/dl Hct (34.1-44.9) % MCV (79.4-94.8) fl MCH (25.6-32.2) pg MCHC (32.2-35.5) g/dl RDW Std Deviation (36.4-46.3) fL Plt Count (182-369) K/mm3 MPV (9.4-12.3) fl Neut % (Auto) (34.0-71.1) % Lymph % (Auto) (19.3-51.7) % Trigg % (Auto) (4.7-12.5) % Eos % (Auto) (0.7-5.8) Baso % (Auto) (0.1-1.2) % Neut # (Auto) (1.56-6.13) K/mm3 Lymph # (Auto) (1.18-3.74) K/mm3 Trigg # (Auto) (0.24-0.36) K/mm3 Eos # (Auto) (0.04-0.36) K/mm3 Baso # (Auto) (0.01-0.08) K/mm3 Manual Slide Review Sodium (136-145) mEq/L Potassium (3.5-5.1) mEq/L Chloride (98-107) mEq/L Carbon Dioxide (21-32) mEq/L Anion Gap (5-15) BUN (7-18) mg/dL Creatinine (0.55-1.02) mg/dL Est Cr Clr Drug Dosing mL/min Estimated GFR (MDRD) (>60) mL/min BUN/Creatinine Ratio (14-18) Glucose (80-115) mg/dL POC Glucose 396 H 269 H 283 H (80-115) mg/dL Hemoglobin A1c ( - 5.6) % Calcium (8.5-10.1) mg/dL Magnesium (1.8-2.4) mg/dl Ferritin (8-252) ng/ml Total Bilirubin (0.2-1.0) mg/dL Direct Bilirubin (0.0-0.2) mg/dl Indirect Bilirubin (0.1-1.0) mg/dL AST (15-37) U/L ALT (14-59) U/L Alkaline Phosphatase (46-116) U/L Lactate Dehydrogenase (81-234) U/L Troponin I (0.00-0.056) ng/mL C-Reactive Protein (<1.0) mg/dL Total Protein (6.4-8.2) g/dl Albumin (3.4-5.0) g/dl Globulin gm/dL Albumin/Globulin Ratio (1-2) Vitamin D 25-Hydroxy (30.0-100.0) ng/ml 02/25/21 02/25/21 02/25/21 Range/Units 05:05 05:05 06:56 WBC 8.63 (3.98-10.04) K/mm3 RBC 3.18 L (3.98-5.22) M/mm3 Hgb 8.7 L (11.2-15.7) gm/dl Hct 27.5 L (34.1-44.9) % MCV 86.5 (79.4-94.8) fl MCH 27.4 (25.6-32.2) pg MCHC 31.6 L (32.2-35.5) g/dl RDW Std Deviation 40.9 (36.4-46.3) fL Plt Count 444 H (182-369) K/mm3 MPV 10.5 (9.4-12.3) fl Neut % (Auto) 72.8 H (34.0-71.1) % Lymph % (Auto) 15.2 L (19.3-51.7) % Trigg % (Auto) 9.7 (4.7-12.5) % Eos % (Auto) 0.2 L (0.7-5.8) Baso % (Auto) 0.2 (0.1-1.2) % Neut # (Auto) 6.28 H (1.56-6.13) K/mm3 Lymph # (Auto) 1.31 (1.18-3.74) K/mm3 Trigg # (Auto) 0.84 H (0.24-0.36) K/mm3 Eos # (Auto) 0.02 L (0.04-0.36) K/mm3 Baso # (Auto) 0.02 (0.01-0.08) K/mm3 Manual Slide Review Abnormal smear Sodium 137 (136-145) mEq/L Potassium 4.0 (3.5-5.1) mEq/L Chloride 99 (98-107) mEq/L Carbon Dioxide 25 (21-32) mEq/L Anion Gap 17.0 H (5-15) BUN 21 H (7-18) mg/dL Creatinine 1.2 H (0.55-1.02) mg/dL Est Cr Clr Drug Dosing 36.60 mL/min Estimated GFR (MDRD) 45 (>60) mL/min BUN/Creatinine Ratio 17.5 (14-18) Glucose 298 H (80-115) mg/dL POC Glucose 271 H (80-115) mg/dL Hemoglobin A1c ( - 5.6) % Calcium 8.5 (8.5-10.1) mg/dL Magnesium 1.7 L (1.8-2.4) mg/dl Ferritin (8-252) ng/ml Total Bilirubin 0.3 (0.2-1.0) mg/dL Direct Bilirubin (0.0-0.2) mg/dl Indirect Bilirubin (0.1-1.0) mg/dL AST 24 (15-37) U/L ALT 33 (14-59) U/L Alkaline Phosphatase 132 H (46-116) U/L Lactate Dehydrogenase (81-234) U/L Troponin I (0.00-0.056) ng/mL C-Reactive Protein 30.6 H* (<1.0) mg/dL Total Protein 6.9 (6.4-8.2) g/dl Albumin 2.3 L (3.4-5.0) g/dl Globulin 4.6 gm/dL Albumin/Globulin Ratio 0.5 L (1-2) Vitamin D 25-Hydroxy (30.0-100.0) ng/ml Result Diagrams: 02/25/21 05:05 02/25/21 05:05 John Results Last 24 hrs: Microbiology 02/24/21 08:25 Aerobic Blood Culture - Preliminary Blood - Venous - Lab Draw NO GROWTH AFTER 1 DAY Anaerobic Blood Culture - Preliminary NO GROWTH AFTER 1 DAY 02/24/21 08:15 Aerobic Blood Culture - Preliminary Blood - Venous NO GROWTH AFTER 1 DAY Anaerobic Blood Culture - Preliminary NO GROWTH AFTER 1 DAY Sepsis Event Note - Evaluation Sepsis Screening Result: No Definite Risk - Focused Exam Vital Signs: Vital Signs Temp Pulse Pulse Resp BP BP Pulse Ox 02/25/21 09:08 02/25/21 08:36 02/25/21 08:09 79 134/65 02/25/21 08:00 36.1 C 63 22 H 134/65 93 L 02/25/21 04:09 69 126/67 81 L 02/25/21 04:08 69 82 L 02/25/21 04:00 71 16 84 L 02/25/21 03:00 55 L 89 L 02/25/21 02:00 64 97 04/10/21 01:00 55 L 91 L 02/25/21 00:00 61 97 02/24/21 23:43 16 97 02/24/21 23:38 64 106/54 L 97 02/24/21 23:37 65 96 02/24/21 23:00 62 97 02/24/21 22:00 75 91 L Pulse Ox 02/25/21 09:08 89 L 02/25/21 08:36 86 L 02/25/21 08:09 02/25/21 08:00 02/25/21 04:09 02/25/21 04:08 02/25/21 04:00 02/25/21 03:00 02/25/21 02:00 02/25/21 01:00 02/25/21 00:00 02/24/21 23:43 97 02/24/21 23:38 02/24/21 23:37 02/24/21 23:00 02/24/21 22:00 - Problem List & Annotations (1) COVID-19 SNOMED Code(s): 350890430 Code(s): U07.1 - COVID-19 Status: Acute Priority: High Current Visit: Yes (2) Pneumonia due to COVID-19 virus SNOMED Code(s): 869317660173242977 Code(s): U07.1 - COVID-19; J12.82 - PNEUMONIA DUE TO CORONAVIRUS DISEASE 2019 Status: Acute Priority: High Current Visit: Yes - Problem List Review Problem List Initiated/Reviewed/Updated: Yes - Plan Plan:: Assessment - day of admission 02/24/2021 * 70-year-old female presents to ED with fever, chills, cough, body aches, shortness of breath, generalized weakness, nausea and vomiting. * Known COVID-19 positive diagnosed on 02/17/[address] [facility]. * Received the [employer] Covid vaccine at [facility] on January 25. * Reports she began feeling poor about 10 days ago. * History of HLD, HTN, arthritis, syncope with loss of consciousness, type I DM, prior CA. * Twelve-lead EKG in ED shows sinus rhythm at 79 bpm. * Labs obtained in ED: * WBC 9.93 * Hemoglobin 10.1 * Platelet 454,000 * Neutrophils 77.9% * INR 0.97 * APTT 26.4 * D-dimer 1.22 * Sodium 135 * Potassium 4.1 * Chloride 97 * Carbon dioxide 26 * Anion gap 16.1 * BUN 16, creatinine 1.2, GFR 45 * Glucose 363 * Magnesium 1.9 * Total bilirubin 0.5 * AST 33, ALT 44, alkaline phosphatase 151 * LDH 324 * Troponin less than 0.017 * CRP 25.8 * Albumin 2.8 * Lactic acid 1.5 * Ferritin 599 * ABG obtained in left radial: pH 7.45, PCO2 35.6, PO2 of 88.0, HCO3 24.4, O2 saturation 96.6, AA gradient 67, on nasal cannula 2 L * Given 1 L fluid bolus, 6 mg dexamethasone IV push, 4 mg Zofran, and 250 mg remdesivir. * Chest x-ray shows increased density within both lung bases, worse on the right side. Increased density within the left upper lung seen. Findings could represent areas of aspiration as well as bilateral pneumonia. Please rule out Covid disease. Other findings which are stable. * Subsequently admitted to the ICU as MedSurg overflow on telemetry for management of her COVID-19 pneumonia. Plan: COVID-19 Hypoxia Pneumonia due to COVID-19 virus Elevated d-dimer Vitamin D deficiency * O2 as needed to keep saturations 88-95% * PRN albuterol inhaler * Remdesivir - day 11/22 * Rocephin 2gm - day 11/22 * Azithromycin 500mg - day 11/22 * Dexamethasone - day 11/27 * IS/Acapella * RT consultation * Pepcid 20mg BID * Start ASA 325mg daily * Lovenox 40mg daily * Ambulate TID * Up with assistance/Up to chair * Prone whenever able * Repeat CXR as needed * Daily labs * D-Dimer Q48 hr * Melatonin 9mg at bedtime * Vitamin D supplementation - 5000 units daily * Zinc supplementation * Check Vitamin D level * Telemetry/continuous pulse oximetry * Airborne/contact precautions Acute kidney injury High anion gap metabolic acidosis Hyponatremia * Given 1L bolus in ED * Caution with IV fluids due to COVID * Monitor labs * Avoid nephrotoxic agents if possible Type I diabetes mellitus * Check A1C * QID AC and Bedtime blood glucose checks * Hold home PO diabetic meds * Medium sliding scale insulin * Anticipate blood glucose level increase due to steroids * Start Alogliptin daily * Diabetic diet HLD (hyperlipidemia) HTN (hypertension) Arthritis History of syncope History of CA (myocardial infarction) * No acute concerns * Telemetry * Monitor vital signs Code Status: Full code PCP: Dr. Hawkins (retired, will need to establish new PCP at discharge) DVT prophylaxis: Lovenox and 325mg ASA daily Disposition: Patient admitted to ICU as MSP overflow on telemetry for management of her COVID-19 symptoms. LOS >96 Hrs due to treatment for COVID-19 02/25/2021 The patient is a 70-year-old lady who is in intensive care for her Covid pneumonia. The patient will be retained in the ICU. Her length of stay is dependent upon treatment with remdesivir and she is currently scheduled until February 28. The patient's CRP is also risen and I have ordered repeat of the CRP for the morning. I have also ordered repeat laboratory studies. Patient's glucose checks have been high and she is currently on dexamethasone. Continue with diabetic diet and insulin sliding scale for now. The patient is also on DVT prophylaxis. Renal dose her medications due to renal insufficiency. The patient is also being duly treated with azithromycin and ceftriaxone for pneumonia. I ordered repeat chest x-ray for the morning. She has been encouraged to ambulate.
[2021-02-25] MEDS: REMDESIVIR 100 MG in Sodium Chloride 0.9% 100 ML IV SCH (10:15)
[2021-02-25] MEDS: cefTRIAXone 2 GM in Sodium Chloride 0.9% 100 ML IV SCH (14:20)
[2021-02-25] MEDS: Azithromycin 500 MG in Sodium Chloride 0.9% 250 ML IV SCH (15:00)
[2021-02-25] MEDS ORDERED: Insulin Lispro 100 UNIT/ML 10 ML Vial SUBCUT ONE ×2 (18:08→21:59)
[2021-02-25] MEDS: Famotidine 20 MG Tab PO SCH (20:16)
[2021-02-25] MEDS ORDERED: Insulin Glarg,Human.Rec.Analog 100 Unit/ML SUBCUT SCH (21:00)
[2021-02-25] MEDS: Melatonin 3 MG Tab PO SCH (22:08)
[2021-02-26] MEDS: Acetaminophen 325 MG Tab PO PRN ×2 (02:44→22:30)
[2021-02-26] MEDS: Insulin Lispro 100 UNIT/ML 10 ML Vial SUBCUT SCH ×4 (06:51→22:20)
[2021-02-26] MEDS: Metoprolol Tartrate 25 MG Tab PO SCH ×2 (08:11→22:20)
[2021-02-26] MEDS: Aspirin 325 MG Tab.EC PO SCH (08:14)
[2021-02-26] MEDS: Enoxaparin 40 MG/0.4 ML Syringe SUBCUT SCH (08:14)
[2021-02-26] MEDS: Dexamethasone 4 MG Tab PO SCH (08:14)
[2021-02-26] MEDS: Insulin Glarg,Human.Rec.Analog 100 Unit/ML SUBCUT SCH ×2 (08:15→22:20)
[2021-02-26] MEDS: Zinc Sulfate 220 MG Cap PO SCH (08:15)
[2021-02-26] MEDS: Cholecalciferol (Vitamin D3) 5,000 UNIT Cap PO SCH (08:15)
[2021-02-26] MEDS: atorvaSTATin 40 MG Tab PO SCH (08:15)
--- NOTE | 2021-02-26 10:05 | CR ---
Chest: Portable view of the chest was obtained. Comparison: Prior chest x-ray of 02/24/21. Increasing density is noted within the left upper lung as well as within both lower lungs. Heart size and mediastinum are normal. Prior right shoulder surgery is seen. Impression: 1. Increasing areas of density on both sides of the chest. 2. Stable right shoulder surgery. Diagnostic code #3
[2021-02-26] MEDS: REMDESIVIR 100 MG in Sodium Chloride 0.9% 100 ML IV SCH (10:23)
--- NOTE | 2021-02-26 10:51 | PCM.PN ---
- General Info Date of Service: 02/26/21 Admission Dx/Problem (Free Text): Admission Diagnosis/Problem Admission Diagnosis/Problem Pneumonia Subjective Update: The patient is a 70-year-old lady who had been admitted to acute hospitalization due to COVID-19 associated pneumonia. The patient says today that she is doing better. The patient has been tolerating her diet. She still feels like she is having shortness of breath. Functional Status: Reports: Pain Controlled, Tolerating Diet - Review of Systems General: Reports: Weakness, Fatigue HEENT: Reports: No Symptoms Pulmonary: Reports: Shortness of Breath Cardiovascular: Reports: No Symptoms Gastrointestinal: Reports: No Symptoms Genitourinary: Reports: No Symptoms Musculoskeletal: Reports: No Symptoms Skin: Reports: No Symptoms Neurological: Reports: No Symptoms Psychiatric: Reports: No Symptoms - Patient Data Vitals - Most Recent: Last Vital Signs Temp 36.1 C 02/26/21 08:00 Pulse 67 02/26/21 08:11 Resp 18 02/26/21 08:00 BP 141/69 H 02/26/21 08:11 Pulse Ox 97 02/26/21 08:04 Weight - Most Recent: 91.626 kg I&O - Last 24 Hours: Intake & Output 02/25/21 02/26/21 02/26/21 22:59 06:59 14:59 Intake Total 1730 400 Balance 1730 400 Lab Results Last 24 Hours: Laboratory Results - last 24 hr 02/25/21 02/25/21 02/25/21 Range/Units 11:23 17:32 21:30 WBC (3.98-10.04) K/mm3 RBC (3.98-5.22) M/mm3 Hgb (11.2-15.7) gm/dl Hct (34.1-44.9) % MCV (79.4-94.8) fl MCH (25.6-32.2) pg MCHC (32.2-35.5) g/dl RDW Std Deviation (36.4-46.3) fL Plt Count (182-369) K/mm3 MPV (9.4-12.3) fl Neut % (Auto) (34.0-71.1) % Lymph % (Auto) (19.3-51.7) % [place] % (Auto) (4.7-12.5) % Eos % (Auto) (0.7-5.8) Baso % (Auto) (0.1-1.2) % Neut # (Auto) (1.56-6.13) K/mm3 Lymph # (Auto) (1.18-3.74) K/mm3 [place] # (Auto) (0.24-0.36) K/mm3 Eos # (Auto) (0.04-0.36) K/mm3 Baso # (Auto) (0.01-0.08) K/mm3 Manual Slide Review D-Dimer, Quantitative (0.19-0.50) mg/L Sodium (136-145) mEq/L Potassium (3.5-5.1) mEq/L Chloride (98-107) mEq/L Carbon Dioxide (21-32) mEq/L Anion Gap (5-15) BUN (7-18) mg/dL Creatinine (0.55-1.02) mg/dL Est Cr Clr Drug Dosing mL/min Estimated GFR (MDRD) (>60) mL/min BUN/Creatinine Ratio (14-18) Glucose 440 H 445 H (80-115) mg/dL POC Glucose 342 H (80-115) mg/dL Calcium (8.5-10.1) mg/dL Magnesium (1.8-2.4) mg/dl Total Bilirubin (0.2-1.0) mg/dL AST (15-37) U/L ALT (14-59) U/L Alkaline Phosphatase (46-116) U/L C-Reactive Protein (<1.0) mg/dL Total Protein (6.4-8.2) g/dl Albumin (3.4-5.0) g/dl Globulin gm/dL Albumin/Globulin Ratio (1-2) 02/26/21 02/26/21 02/26/21 Range/Units 06:18 06:18 06:18 WBC 11.62 H (3.98-10.04) K/mm3 RBC 3.41 L (3.98-5.22) M/mm3 Hgb 9.3 L (11.2-15.7) gm/dl Hct 29.2 L (34.1-44.9) % MCV 85.6 (79.4-94.8) fl MCH 27.3 (25.6-32.2) pg MCHC 31.8 L (32.2-35.5) g/dl RDW Std Deviation 40.1 (36.4-46.3) fL Plt Count 565 H D (182-369) K/mm3 MPV 10.2 (9.4-12.3) fl Neut % (Auto) 81.0 H (34.0-71.1) % Lymph % (Auto) 9.8 L (19.3-51.7) % [place] % (Auto) 7.0 (4.7-12.5) % Eos % (Auto) 0.1 L (0.7-5.8) Baso % (Auto) 0.1 (0.1-1.2) % Neut # (Auto) 9.42 H (1.56-6.13) K/mm3 Lymph # (Auto) 1.14 L (1.18-3.74) K/mm3 [place] # (Auto) 0.81 H (0.24-0.36) K/mm3 Eos # (Auto) 0.01 L (0.04-0.36) K/mm3 Baso # (Auto) 0.01 (0.01-0.08) K/mm3 Manual Slide Review Abnormal smear D-Dimer, Quantitative 3.66 H (0.19-0.50) mg/L Sodium 138 (136-145) mEq/L Potassium 3.7 (3.5-5.1) mEq/L Chloride 101 (98-107) mEq/L Carbon Dioxide 22 (21-32) mEq/L Anion Gap 18.7 H (5-15) BUN 25 H (7-18) mg/dL Creatinine 1.2 H (0.55-1.02) mg/dL Est Cr Clr Drug Dosing 36.60 mL/min Estimated GFR (MDRD) 45 (>60) mL/min BUN/Creatinine Ratio 20.8 H (14-18) Glucose 334 H (80-115) mg/dL POC Glucose (80-115) mg/dL Calcium 8.7 (8.5-10.1) mg/dL Magnesium 1.7 L (1.8-2.4) mg/dl Total Bilirubin 0.3 (0.2-1.0) mg/dL AST 19 (15-37) U/L ALT 31 (14-59) U/L Alkaline Phosphatase 122 H (46-116) U/L C-Reactive Protein 15.3 H* (<1.0) mg/dL Total Protein 7.0 (6.4-8.2) g/dl Albumin 2.3 L (3.4-5.0) g/dl Globulin 4.7 gm/dL Albumin/Globulin Ratio 0.5 L (1-2) 02/26/21 Range/Units 06:18 WBC (3.98-10.04) K/mm3 RBC (3.98-5.22) M/mm3 Hgb (11.2-15.7) gm/dl Hct (34.1-44.9) % MCV (79.4-94.8) fl MCH (25.6-32.2) pg MCHC (32.2-35.5) g/dl RDW Std Deviation (36.4-46.3) fL Plt Count (182-369) K/mm3 MPV (9.4-12.3) fl Neut % (Auto) (34.0-71.1) % Lymph % (Auto) (19.3-51.7) % [place] % (Auto) (4.7-12.5) % Eos % (Auto) (0.7-5.8) Baso % (Auto) (0.1-1.2) % Neut # (Auto) (1.56-6.13) K/mm3 Lymph # (Auto) (1.18-3.74) K/mm3 [place] # (Auto) (0.24-0.36) K/mm3 Eos # (Auto) (0.04-0.36) K/mm3 Baso # (Auto) (0.01-0.08) K/mm3 Manual Slide Review D-Dimer, Quantitative (0.19-0.50) mg/L Sodium (136-145) mEq/L Potassium (3.5-5.1) mEq/L Chloride (98-107) mEq/L Carbon Dioxide (21-32) mEq/L Anion Gap (5-15) BUN (7-18) mg/dL Creatinine (0.55-1.02) mg/dL Est Cr Clr Drug Dosing mL/min Estimated GFR (MDRD) (>60) mL/min BUN/Creatinine Ratio (14-18) Glucose (80-115) mg/dL POC Glucose 306 H (80-115) mg/dL Calcium (8.5-10.1) mg/dL Magnesium (1.8-2.4) mg/dl Total Bilirubin (0.2-1.0) mg/dL AST (15-37) U/L ALT (14-59) U/L Alkaline Phosphatase (46-116) U/L C-Reactive Protein (<1.0) mg/dL Total Protein (6.4-8.2) g/dl Albumin (3.4-5.0) g/dl Globulin gm/dL Albumin/Globulin Ratio (1-2) John Results Last 24 Hours: Microbiology 02/24/21 08:25 Aerobic Blood Culture - Preliminary Blood - Venous - Lab Draw NO GROWTH AFTER 2 DAYS Anaerobic Blood Culture - Preliminary NO GROWTH AFTER 2 DAYS 02/24/21 08:15 Aerobic Blood Culture - Preliminary Blood - Venous NO GROWTH AFTER 2 DAYS Anaerobic Blood Culture - Preliminary NO GROWTH AFTER 2 DAYS Med Orders - Current: Current Medications Acetaminophen (Acetaminophen 325 Mg Tab) 650 mg PO Q4H PRN PRN Reason: Pain (Mild 1-3)/fever Last Admin: 02/26/21 02:44 Dose: 650 mg Documented by: Albuterol (Albuterol 6.7 Gm Inhaler) 0 gm INH Q2H PRN PRN Reason: SOB/Wheezing Alogliptin Benzoate (Alogliptin 12.5 Mg Tab) 12.5 mg PO DAILY [facility] Last Admin: 02/26/21 08:15 Dose: 12.5 mg Documented by: Aspirin (Aspirin 325 Mg Tab.Ec) 325 mg PO DAILY [facility] Last Admin: 02/26/21 08:14 Dose: 325 mg Documented by: Atorvastatin Calcium (Atorvastatin 40 Mg Tab) 40 mg PO DAILY [facility] Last Admin: 02/26/21 08:15 Dose: 40 mg Documented by: Cholecalciferol (Cholecalciferol (Vitamin D3) 5,000 Unit Cap) 5,000 unit PO DAILY [facility] Last Admin: 02/26/21 08:15 Dose: 5,000 unit Documented by: Dexamethasone (Dexamethasone 4 Mg Tab) 6 mg PO DAILY [facility] Stop: 03/05/21 09:01 Last Admin: 02/26/21 08:14 Dose: 6 mg Documented by: Docusate Sodium (Docusate Sodium 100 Mg Cap) 100 mg PO BID PRN PRN Reason: Constipation Enoxaparin Sodium (Enoxaparin 40 Mg/0.4 Ml Syringe) 40 mg SUBCUT DAILY [facility] Last Admin: 02/26/21 08:14 Dose: 40 mg Documented by: Famotidine (Famotidine 20 Mg Tab) 20 mg PO BEDTIME [facility] Last Admin: 02/25/21 20:16 Dose: 20 mg Documented by: Sodium Chloride (Normal Saline) 1,000 mls @ 1,000 mls/hr IV .BOLUS [facility] Last Admin: 02/24/21 08:23 Dose: 1,000 mls/hr Documented by: Ceftriaxone Sodium 2 gm/ (Sodium Chloride) 100 mls @ 200 mls/hr IV Q24H [facility] Stop: 02/28/21 14:29 Last Admin: 02/25/21 14:20 Dose: 200 mls/hr Documented by: Remdesivir 100 mg/ Sodium (Chloride) 100 mls @ 100 mls/hr IV Q24H [facility] Stop: 02/28/21 11:59 Last Admin: 02/26/21 10:23 Dose: 100 mls/hr Documented by: Azithromycin 500 mg/ Sodium (Chloride) 250 mls @ 250 mls/hr IV Q24H [facility] Stop: 02/26/21 16:59 Last Admin: 02/25/21 15:00 Dose: 250 mls/hr Documented by: Insulin Glargine (Insulin Glarg,Human.Rec.Analog 100 Unit/Ml) 15 unit SUBCUT BEDTIME [facility] Last Admin: 02/25/21 22:09 Dose: 15 units Documented by: Insulin Glargine (Insulin Glarg,Human.Rec.Analog 100 Unit/Ml) 10 unit SUBCUT DAILY [facility] Last Admin: 02/26/21 08:15 Dose: 10 units Documented by: Insulin Human Lispro (Insulin Lispro 100 Unit/Ml) 0 unit SUBCUT QIDACANDBED [facility]; Protocol Last Admin: 02/26/21 06:51 Dose: 8 units Documented by: Magnesium Hydroxide (Magnesium Hydroxide 400 Mg/5 Ml Susp 30 Ml Cup) 30 ml PO Q12H PRN PRN Reason: Constipation Melatonin (Melatonin 3 Mg Tab) 9 mg PO BEDTIME [facility] Last Admin: 02/25/21 22:08 Dose: 9 mg Documented by: Metoprolol Tartrate (Metoprolol Tartrate 25 Mg Tab) 25 mg PO BID [facility] Last Admin: 02/26/21 08:11 Dose: 25 mg Documented by: Ondansetron HCl (Ondansetron 4 Mg/2 Ml Sdv) 4 mg IV Q6H PRN PRN Reason: Nausea/Vomiting Sodium Chloride (Sodium Chloride 0.9% 10 Ml Syringe) 10 ml FLUSH ASDIRECTED PRN PRN Reason: Keep Vein Open Last Admin: 02/24/21 08:23 Dose: 10 ml Documented by: Zinc Sulfate (Zinc Sulfate 220 Mg Cap) 220 mg PO DAILY [facility] Last Admin: 02/26/21 08:15 Dose: 220 mg Documented by: Discontinued Medications Dexamethasone (Dexamethasone 4 Mg/Ml Sdv) 6 mg IVPUSH ONETIME ONE Stop: 02/24/21 10:00 Last Admin: 02/24/21 10:43 Dose: 6 mg Documented by: Remdesivir 200 mg/ Sodium (Chloride) 250 mls @ 250 mls/hr IV ONETIME ONE Stop: 02/24/21 10:00 Last Admin: 02/24/21 13:41 Dose: Not Given Documented by: Remdesivir 200 mg/ Sodium (Chloride) 250 mls @ 250 mls/hr IV ONETIME ONE Stop: 02/24/21 11:59 Last Admin: 02/24/21 10:43 Dose: 250 mls/hr Documented by: Remdesivir 100 mg/ Sodium (Chloride) 100 mls @ 100 mls/hr IV DAILY [facility] Stop: 02/28/21 09:59 Azithromycin 500 mg/ Sodium (Chloride) 250 mls @ 250 mls/hr IV Q24H [facility] Stop: 02/26/21 14:59 Last Admin: 02/24/21 16:06 Dose: 250 mls/hr Documented by: Insulin Glargine (Insulin Glarg,Human.Rec.Analog 100 Unit/Ml) 10 unit SUBCUT BEDTIME [facility] Last Admin: 02/24/21 21:58 Dose: 10 units Documented by: Insulin Human Lispro (Insulin Lispro 100 Unit/Ml) 0 unit SUBCUT ONETIME ONE; Protocol Stop: 02/24/21 13:45 Last Admin: 02/24/21 14:46 Dose: 6 units Documented by: Insulin Human Lispro (Insulin Lispro 100 Unit/Ml) 10 unit SUBCUT ONETIME ONE Stop: 02/24/21 17:01 Last Admin: 02/24/21 17:33 Dose: 10 units Documented by: Insulin Human Lispro (Insulin Lispro 100 Unit/Ml) 4 unit SUBCUT ONETIME ONE Stop: 02/25/21 18:09 Last Admin: 02/25/21 18:17 Dose: 4 units Documented by: Insulin Human Lispro (Insulin Lispro 100 Unit/Ml) 4 unit SUBCUT ONETIME ONE Stop: 02/25/21 22:00 Last Admin: 02/25/21 22:08 Dose: 4 units Documented by: Ondansetron HCl (Ondansetron 4 Mg/2 Ml Sdv) 4 mg IVPUSH ONETIME ONE Stop: 02/24/21 08:05 Last Admin: 02/24/21 08:23 Dose: 4 mg Documented by: - Exam Quality Assessment: Supplemental Oxygen General: Alert, Oriented, Cooperative HEENT: Pupils Equal, Pupils Reactive Neck: Supple, Trachea Midline Lungs: Normal Respiratory Effort, Crackles, Rales Cardiovascular: Regular Rate, Regular Rhythm GI/Abdominal Exam: Normal Bowel Sounds, Soft, No Distention (Female) Exam: Deferred Back Exam: Normal Inspection, Full Range of Motion Extremities: Normal Inspection, No Pedal Edema Skin: Warm, Dry Neurological: No New Focal Deficit Psy/Mental Status: Alert, Normal Affect - Patient Data Lab Results Last 24 hrs: Laboratory Results - last 24 hr 02/25/21 02/25/21 02/25/21 Range/Units 11:23 17:32 21:30 WBC (3.98-10.04) K/mm3 RBC (3.98-5.22) M/mm3 Hgb (11.2-15.7) gm/dl Hct (34.1-44.9) % MCV (79.4-94.8) fl MCH (25.6-32.2) pg MCHC (32.2-35.5) g/dl RDW Std Deviation (36.4-46.3) fL Plt Count (182-369) K/mm3 MPV (9.4-12.3) fl Neut % (Auto) (34.0-71.1) % Lymph % (Auto) (19.3-51.7) % [place] % (Auto) (4.7-12.5) % Eos % (Auto) (0.7-5.8) Baso % (Auto) (0.1-1.2) % Neut # (Auto) (1.56-6.13) K/mm3 Lymph # (Auto) (1.18-3.74) K/mm3 [place] # (Auto) (0.24-0.36) K/mm3 Eos # (Auto) (0.04-0.36) K/mm3 Baso # (Auto) (0.01-0.08) K/mm3 Manual Slide Review D-Dimer, Quantitative (0.19-0.50) mg/L Sodium (136-145) mEq/L Potassium (3.5-5.1) mEq/L Chloride (98-107) mEq/L Carbon Dioxide (21-32) mEq/L Anion Gap (5-15) BUN (7-18) mg/dL Creatinine (0.55-1.02) mg/dL Est Cr Clr Drug Dosing mL/min Estimated GFR (MDRD) (>60) mL/min BUN/Creatinine Ratio (14-18) Glucose 440 H 445 H (80-115) mg/dL POC Glucose 342 H (80-115) mg/dL Calcium (8.5-10.1) mg/dL Magnesium (1.8-2.4) mg/dl Total Bilirubin (0.2-1.0) mg/dL AST (15-37) U/L ALT (14-59) U/L Alkaline Phosphatase (46-116) U/L C-Reactive Protein (<1.0) mg/dL Total Protein (6.4-8.2) g/dl Albumin (3.4-5.0) g/dl Globulin gm/dL Albumin/Globulin Ratio (1-2) 02/26/21 02/26/21 02/26/21 Range/Units 06:18 06:18 06:18 WBC 11.62 H (3.98-10.04) K/mm3 RBC 3.41 L (3.98-5.22) M/mm3 Hgb 9.3 L (11.2-15.7) gm/dl Hct 29.2 L (34.1-44.9) % MCV 85.6 (79.4-94.8) fl MCH 27.3 (25.6-32.2) pg MCHC 31.8 L (32.2-35.5) g/dl RDW Std Deviation 40.1 (36.4-46.3) fL Plt Count 565 H D (182-369) K/mm3 MPV 10.2 (9.4-12.3) fl Neut % (Auto) 81.0 H (34.0-71.1) % Lymph % (Auto) 9.8 L (19.3-51.7) % [place] % (Auto) 7.0 (4.7-12.5) % Eos % (Auto) 0.1 L (0.7-5.8) Baso % (Auto) 0.1 (0.1-1.2) % Neut # (Auto) 9.42 H (1.56-6.13) K/mm3 Lymph # (Auto) 1.14 L (1.18-3.74) K/mm3 [place] # (Auto) 0.81 H (0.24-0.36) K/mm3 Eos # (Auto) 0.01 L (0.04-0.36) K/mm3 Baso # (Auto) 0.01 (0.01-0.08) K/mm3 Manual Slide Review Abnormal smear D-Dimer, Quantitative 3.66 H (0.19-0.50) mg/L Sodium 138 (136-145) mEq/L Potassium 3.7 (3.5-5.1) mEq/L Chloride 101 (98-107) mEq/L Carbon Dioxide 22 (21-32) mEq/L Anion Gap 18.7 H (5-15) BUN 25 H (7-18) mg/dL Creatinine 1.2 H (0.55-1.02) mg/dL Est Cr Clr Drug Dosing 36.60 mL/min Estimated GFR (MDRD) 45 (>60) mL/min BUN/Creatinine Ratio 20.8 H (14-18) Glucose 334 H (80-115) mg/dL POC Glucose (80-115) mg/dL Calcium 8.7 (8.5-10.1) mg/dL Magnesium 1.7 L (1.8-2.4) mg/dl Total Bilirubin 0.3 (0.2-1.0) mg/dL AST 19 (15-37) U/L ALT 31 (14-59) U/L Alkaline Phosphatase 122 H (46-116) U/L C-Reactive Protein 15.3 H* (<1.0) mg/dL Total Protein 7.0 (6.4-8.2) g/dl Albumin 2.3 L (3.4-5.0) g/dl Globulin 4.7 gm/dL Albumin/Globulin Ratio 0.5 L (1-2) 02/26/21 Range/Units 06:18 WBC (3.98-10.04) K/mm3 RBC (3.98-5.22) M/mm3 Hgb (11.2-15.7) gm/dl Hct (34.1-44.9) % MCV (79.4-94.8) fl MCH (25.6-32.2) pg MCHC (32.2-35.5) g/dl RDW Std Deviation (36.4-46.3) fL Plt Count (182-369) K/mm3 MPV (9.4-12.3) fl Neut % (Auto) (34.0-71.1) % Lymph % (Auto) (19.3-51.7) % [place] % (Auto) (4.7-12.5) % Eos % (Auto) (0.7-5.8) Baso % (Auto) (0.1-1.2) % Neut # (Auto) (1.56-6.13) K/mm3 Lymph # (Auto) (1.18-3.74) K/mm3 [place] # (Auto) (0.24-0.36) K/mm3 Eos # (Auto) (0.04-0.36) K/mm3 Baso # (Auto) (0.01-0.08) K/mm3 Manual Slide Review D-Dimer, Quantitative (0.19-0.50) mg/L Sodium (136-145) mEq/L Potassium (3.5-5.1) mEq/L Chloride (98-107) mEq/L Carbon Dioxide (21-32) mEq/L Anion Gap (5-15) BUN (7-18) mg/dL Creatinine (0.55-1.02) mg/dL Est Cr Clr Drug Dosing mL/min Estimated GFR (MDRD) (>60) mL/min BUN/Creatinine Ratio (14-18) Glucose (80-115) mg/dL POC Glucose 306 H (80-115) mg/dL Calcium (8.5-10.1) mg/dL Magnesium (1.8-2.4) mg/dl Total Bilirubin (0.2-1.0) mg/dL AST (15-37) U/L ALT (14-59) U/L Alkaline Phosphatase (46-116) U/L C-Reactive Protein (<1.0) mg/dL Total Protein (6.4-8.2) g/dl Albumin (3.4-5.0) g/dl Globulin gm/dL Albumin/Globulin Ratio (1-2) Result Diagrams: 02/26/21 06:18 02/26/21 06:18 John Results Last 24 hrs: Microbiology 02/24/21 08:25 Aerobic Blood Culture - Preliminary Blood - Venous - Lab Draw NO GROWTH AFTER 2 DAYS Anaerobic Blood Culture - Preliminary NO GROWTH AFTER 2 DAYS 02/24/21 08:15 Aerobic Blood Culture - Preliminary Blood - Venous NO GROWTH AFTER 2 DAYS Anaerobic Blood Culture - Preliminary NO GROWTH AFTER 2 DAYS Sepsis Event Note - Evaluation Sepsis Screening Result: No Definite Risk - Focused Exam Vital Signs: Vital Signs Temp Pulse Pulse Resp BP BP Pulse Ox 02/26/21 08:11 67 141/69 H 02/26/21 08:04 02/26/21 08:00 36.1 C 71 18 141/69 H 94 L 02/26/21 04:00 -13.9 C L 16 97 02/26/21 03:59 163/76 H 96 02/26/21 03:58 93 L 02/26/21 03:00 97 02/26/21 02:41 149/66 H 91 L 02/26/21 02:40 91 L 02/26/21 02:00 97 02/26/21 01:00 97 02/26/21 00:00 36.7 C 16 99 02/25/21 23:00 95 Pulse Ox 02/26/21 08:11 02/26/21 08:04 97 02/26/21 08:00 02/26/21 04:00 02/26/21 03:59 02/26/21 03:58 02/26/21 03:00 02/26/21 02:41 02/26/21 02:40 02/26/21 02:00 02/26/21 01:00 02/26/21 00:00 02/25/21 23:00 - Problem List & Annotations (1) COVID-19 SNOMED Code(s): 291647105 Code(s): U07.1 - COVID-19 Status: Acute Priority: High Current Visit: Yes (2) Pneumonia due to COVID-19 virus SNOMED Code(s): 486673529926803476 Code(s): U07.1 - COVID-19; J12.82 - PNEUMONIA DUE TO CORONAVIRUS DISEASE 2019 Status: Acute Priority: High Current Visit: Yes (3) Anemia SNOMED Code(s): 000352410 Code(s): D64.9 - ANEMIA, UNSPECIFIED Status: Chronic Priority: Medium Current Visit: Yes Qualifiers: Anemia type: due to chronic kidney disease Chronic kidney disease stage: stage 3 (moderate) Chronic kidney disease stage 3 subtype: stage 3b (GFR 30- 44) Qualified Code(s): N18.32 - Chronic kidney disease, stage 3b; D63.1 - Anemia in chronic kidney disease (4) Chronic kidney disease (CKD), stage III (moderate) SNOMED Code(s): 931896000 Code(s): N18.30 - CHRONIC KIDNEY DISEASE, STAGE 3 UNSPECIFIED Status: Acute Priority: Medium Current Visit: Yes Qualifiers: Chronic kidney disease stage 3 subtype: stage 3b (GFR 30-44) Qualified Code(s): N18.32 - Chronic kidney disease, stage 3b (5) Type I diabetes mellitus SNOMED Code(s): 17466357 Code(s): E10.9 - TYPE 1 DIABETES MELLITUS WITHOUT COMPLICATIONS Status: Chronic Priority: Low Current Visit: No Qualifiers: Diabetes mellitus complication status: with other specified complication Qualified Code(s): E10.69 - Type 1 diabetes mellitus with other specified complication - Problem List Review Problem List Initiated/Reviewed/Updated: Yes - My Orders Last 24 Hours: My Active Orders 02/25/21 21:00 Insulin Glarg,Human.Rec.Analog [LantUS] 15 unit SUBCUT BEDTIME 02/26/21 09:00 Insulin Glarg,Human.Rec.Analog [LantUS] 10 unit SUBCUT DAILY - Plan Plan:: Assessment - day of admission 02/24/2021 * 70-year-old female presents to ED with fever, chills, cough, body aches, shortness of breath, generalized weakness, nausea and vomiting. * Known COVID-19 positive diagnosed on 02/17/2021 at [facility]. * Received the [employer] Covid vaccine at [facility] on January 25. * Reports she began feeling poor about 10 days ago. * History of HLD, HTN, arthritis, syncope with loss of consciousness, type I DM, prior AR. * Twelve-lead EKG in ED shows sinus rhythm at 79 bpm. * Labs obtained in ED: * WBC 9.93 * Hemoglobin 10.1 * Platelet 454,000 * Neutrophils 77.9% * INR 0.97 * APTT 26.4 * D-dimer 1.22 * Sodium 135 * Potassium 4.1 * Chloride 97 * Carbon dioxide 26 * Anion gap 16.1 * BUN 16, creatinine 1.2, GFR 45 * Glucose 363 * Magnesium 1.9 * Total bilirubin 0.5 * AST 33, ALT 44, alkaline phosphatase 151 * LDH 324 * Troponin less than 0.017 * CRP 25.8 * Albumin 2.8 * Lactic acid 1.5 * Ferritin 599 * ABG obtained in left radial: pH 7.45, PCO2 35.6, PO2 of 88.0, HCO3 24.4, O2 saturation 96.6, AA gradient 67, on nasal cannula 2 L * Given 1 L fluid bolus, 6 mg dexamethasone IV push, 4 mg Zofran, and 250 mg remdesivir. * Chest x-ray shows increased density within both lung bases, worse on the right side. Increased density within the left upper lung seen. Findings could represent areas of aspiration as well as bilateral pneumonia. Please rule out Covid disease. Other findings which are stable. * Subsequently admitted to the ICU as MedSurg overflow on telemetry for management of her COVID-19 pneumonia. Plan: COVID-19 Hypoxia Pneumonia due to COVID-19 virus Elevated d-dimer Vitamin D deficiency * O2 as needed to keep saturations 88-95% * PRN albuterol inhaler * Remdesivir - day 1 * Rocephin 2gm - day 11/22 * Azithromycin 500mg - day 11/22 * Dexamethasone - day 11/27 * IS/Acapella * RT consultation * Pepcid 20mg BID * Start ASA 325mg daily * Lovenox 40mg daily * Ambulate TID * Up with assistance/Up to chair * Prone whenever able * Repeat CXR as needed * Daily labs * D-Dimer Q48 hr * Melatonin 9mg at bedtime * Vitamin D supplementation - 5000 units daily * Zinc supplementation * Check Vitamin D level * Telemetry/continuous pulse oximetry * Airborne/contact precautions Acute kidney injury High anion gap metabolic acidosis Hyponatremia * Given 1L bolus in ED * Caution with IV fluids due to COVID * Monitor labs * Avoid nephrotoxic agents if possible Type I diabetes mellitus * Check A1C * QID AC and Bedtime blood glucose checks * Hold home PO diabetic meds * Medium sliding scale insulin * Anticipate blood glucose level increase due to steroids * Start Alogliptin daily * Diabetic diet HLD (hyperlipidemia) HTN (hypertension) Arthritis History of syncope History of AR (myocardial infarction) * No acute concerns * Telemetry * Monitor vital signs Code Status: Full code PCP: Dr. Hawkins (retired, will need to establish new PCP at discharge) DVT prophylaxis: Lovenox and 325mg ASA daily Disposition: Patient admitted to ICU as MSP overflow on telemetry for management of her COVID-19 symptoms. LOS >96 Hrs due to treatment for COVID-19 02/25/2021 The patient is a 70-year-old lady who is in intensive care for her Covid pneumonia. The patient will be retained in the ICU. Her length of stay is dependent upon treatment with remdesivir and she is currently scheduled until February 28. The patient's CRP is also risen and I have ordered repeat of the CRP for the morning. I have also ordered repeat laboratory studies. Patient's glucose checks have been high and she is currently on dexamethasone. Continue with diabetic diet and insulin sliding scale for now. The patient is also on DVT prophylaxis. Renal dose her medications due to renal insufficiency. The patient is also being duly treated with azithromycin and ceftriaxone for pneumonia. I ordered repeat chest x-ray for the morning. She has been encouraged to ambulate. 02/26/2021 The patient is a 70-year-old lady who is currently being treated for COVID-19 associated pneumonia. She has been doing better. She says that she still feels weak and fatigued. The patient will be continued on her blood glucose checks. I have ordered her Lantus increased to 25 units at night along with 10 units in the morning. Her blood sugars have been poorly controlled due to the use of the dexamethasone. Repeat laboratory studies have been ordered for the morning. The patient also has anemia likely associated with her stage III chronic renal disease. A comprehensive metabolic panel was been ordered for the morning. She should be able to be discharged upon completion of her remdesivir and dexamethasone. The patient has been encouraged to ambulate.
[2021-02-26] MEDS ORDERED: Insulin Lispro 100 UNIT/ML 10 ML Vial SUBCUT ONE ×3 (12:19→22:10)
[2021-02-26] MEDS: cefTRIAXone 2 GM in Sodium Chloride 0.9% 100 ML IV SCH (14:33)
[2021-02-26] MEDS: Azithromycin 500 MG in Sodium Chloride 0.9% 250 ML IV SCH (15:07)
[2021-02-26] MEDS: Famotidine 20 MG Tab PO SCH (22:18)
[2021-02-26] MEDS: Melatonin 3 MG Tab PO SCH (22:19)
[2021-02-27] MEDS: Insulin Lispro 100 UNIT/ML 10 ML Vial SUBCUT SCH ×4 (06:49→21:23)
--- NOTE | 2021-02-27 07:43 | PCM.PN ---
<Ranulfo Roach - Last Filed: 02/27/21 11:43> - General Info Date of Service: 02/27/21 Admission Dx/Problem (Free Text): Admission Diagnosis/Problem Admission Diagnosis/Problem Pneumonia Functional Status: Reports: Pain Controlled, Tolerating Diet, Ambulating, Urinating, Incentive Spirometry, Other (Acapella ). Denies: New Symptoms - Review of Systems General: Reports: Weakness (Improving ). Denies: Fever, Fatigue, Malaise, Chills HEENT: Reports: No Symptoms. Denies: Headaches, Sore Throat Pulmonary: Reports: Shortness of Breath (improving ). Denies: Pleuritic Chest Pain, Cough, Sputum Cardiovascular: Reports: No Symptoms, Dyspnea on Exertion. Denies: Chest Pain, Palpitations, Lightheadedness Gastrointestinal: Reports: Diarrhea. Denies: Abdominal Pain, Constipation, Nausea Genitourinary: Reports: No Symptoms Musculoskeletal: Reports: Back Pain Skin: Reports: No Symptoms. Denies: Cyanosis Neurological: Reports: No Symptoms. Denies: Confusion, Pre-Existing Deficit, Trouble Speaking, Difficulty Walking, Gait Disturbance Psychiatric: Reports: No Symptoms - Patient Data Vitals - Most Recent: Last Vital Signs Temp 98.3 F 02/27/21 00:00 Pulse 59 L 02/27/21 05:17 Resp 16 02/27/21 05:17 BP 157/71 H 02/27/21 05:15 Pulse Ox 98 02/27/21 05:16 Weight - Most Recent: 92.17 kg I&O - Last 24 Hours: Intake & Output 02/26/21 02/27/21 02/27/21 22:59 06:59 14:59 Intake Total 1850 300 Balance 1850 300 Lab Results Last 24 Hours: Laboratory Results - last 24 hr 02/26/21 02/26/21 02/26/21 Range/Units 06:18 11:46 17:10 WBC (3.98-10.04) K/mm3 RBC (3.98-5.22) M/mm3 Hgb (11.2-15.7) gm/dl Hct (34.1-44.9) % MCV (79.4-94.8) fl MCH (25.6-32.2) pg MCHC (32.2-35.5) g/dl RDW Std Deviation (36.4-46.3) fL Plt Count (182-369) K/mm3 MPV (9.4-12.3) fl Neut % (Auto) (34.0-71.1) % Lymph % (Auto) (19.3-51.7) % [place] % (Auto) (4.7-12.5) % Eos % (Auto) (0.7-5.8) Baso % (Auto) (0.1-1.2) % Neut # (Auto) (1.56-6.13) K/mm3 Lymph # (Auto) (1.18-3.74) K/mm3 [place] # (Auto) (0.24-0.36) K/mm3 Eos # (Auto) (0.04-0.36) K/mm3 Baso # (Auto) (0.01-0.08) K/mm3 Manual Slide Review Sodium (136-145) mEq/L Potassium (3.5-5.1) mEq/L Chloride (98-107) mEq/L Carbon Dioxide (21-32) mEq/L Anion Gap (5-15) BUN (7-18) mg/dL Creatinine (0.55-1.02) mg/dL Est Cr Clr Drug Dosing mL/min Estimated GFR (MDRD) (>60) mL/min BUN/Creatinine Ratio (14-18) Glucose 461 H 507 H (80-115) mg/dL POC Glucose (80-115) mg/dL Calcium (8.5-10.1) mg/dL Magnesium (1.8-2.4) mg/dl Total Bilirubin (0.2-1.0) mg/dL AST (15-37) U/L ALT (14-59) U/L Alkaline Phosphatase (46-116) U/L C-Reactive Protein 15.3 H* (<1.0) mg/dL Total Protein (6.4-8.2) g/dl Albumin (3.4-5.0) g/dl Globulin gm/dL Albumin/Globulin Ratio (1-2) 02/26/21 02/27/21 02/27/21 Range/Units 21:15 05:25 05:25 WBC 13.17 H (3.98-10.04) K/mm3 RBC 3.39 L (3.98-5.22) M/mm3 Hgb 9.2 L (11.2-15.7) gm/dl Hct 29.1 L (34.1-44.9) % MCV 85.8 (79.4-94.8) fl MCH 27.1 (25.6-32.2) pg MCHC 31.6 L (32.2-35.5) g/dl RDW Std Deviation 40.5 (36.4-46.3) fL Plt Count 612 H (182-369) K/mm3 MPV 9.9 (9.4-12.3) fl Neut % (Auto) 71.9 H (34.0-71.1) % Lymph % (Auto) 14.0 L (19.3-51.7) % [place] % (Auto) 9.1 (4.7-12.5) % Eos % (Auto) 0.5 L (0.7-5.8) Baso % (Auto) 0.2 (0.1-1.2) % Neut # (Auto) 9.48 H (1.56-6.13) K/mm3 Lymph # (Auto) 1.84 (1.18-3.74) K/mm3 [place] # (Auto) 1.20 H (0.24-0.36) K/mm3 Eos # (Auto) 0.06 (0.04-0.36) K/mm3 Baso # (Auto) 0.02 (0.01-0.08) K/mm3 Manual Slide Review Abnormal smear Sodium 138 (136-145) mEq/L Potassium 4.3 (3.5-5.1) mEq/L Chloride 102 (98-107) mEq/L Carbon Dioxide 26 (21-32) mEq/L Anion Gap 14.3 (5-15) BUN 23 H (7-18) mg/dL Creatinine 1.2 H (0.55-1.02) mg/dL Est Cr Clr Drug Dosing 36.60 mL/min Estimated GFR (MDRD) 45 (>60) mL/min BUN/Creatinine Ratio 19.2 H (14-18) Glucose 443 H 272 H (80-115) mg/dL POC Glucose (80-115) mg/dL Calcium 9.0 (8.5-10.1) mg/dL Magnesium 1.6 L (1.8-2.4) mg/dl Total Bilirubin 0.2 (0.2-1.0) mg/dL AST 17 (15-37) U/L ALT 29 (14-59) U/L Alkaline Phosphatase 115 (46-116) U/L C-Reactive Protein 8.6 H* (<1.0) mg/dL Total Protein 6.5 (6.4-8.2) g/dl Albumin 2.2 L (3.4-5.0) g/dl Globulin 4.3 gm/dL Albumin/Globulin Ratio 0.5 L (1-2) 02/27/21 Range/Units 06:30 WBC (3.98-10.04) K/mm3 RBC (3.98-5.22) M/mm3 Hgb (11.2-15.7) gm/dl Hct (34.1-44.9) % MCV (79.4-94.8) fl MCH (25.6-32.2) pg MCHC (32.2-35.5) g/dl RDW Std Deviation (36.4-46.3) fL Plt Count (182-369) K/mm3 MPV (9.4-12.3) fl Neut % (Auto) (34.0-71.1) % Lymph % (Auto) (19.3-51.7) % [place] % (Auto) (4.7-12.5) % Eos % (Auto) (0.7-5.8) Baso % (Auto) (0.1-1.2) % Neut # (Auto) (1.56-6.13) K/mm3 Lymph # (Auto) (1.18-3.74) K/mm3 [place] # (Auto) (0.24-0.36) K/mm3 Eos # (Auto) (0.04-0.36) K/mm3 Baso # (Auto) (0.01-0.08) K/mm3 Manual Slide Review Sodium (136-145) mEq/L Potassium (3.5-5.1) mEq/L Chloride (98-107) mEq/L Carbon Dioxide (21-32) mEq/L Anion Gap (5-15) BUN (7-18) mg/dL Creatinine (0.55-1.02) mg/dL Est Cr Clr Drug Dosing mL/min Estimated GFR (MDRD) (>60) mL/min BUN/Creatinine Ratio (14-18) Glucose (80-115) mg/dL POC Glucose 255 H (80-115) mg/dL Calcium (8.5-10.1) mg/dL Magnesium (1.8-2.4) mg/dl Total Bilirubin (0.2-1.0) mg/dL AST (15-37) U/L ALT (14-59) U/L Alkaline Phosphatase (46-116) U/L C-Reactive Protein (<1.0) mg/dL Total Protein (6.4-8.2) g/dl Albumin (3.4-5.0) g/dl Globulin gm/dL Albumin/Globulin Ratio (1-2) John Results Last 24 Hours: Microbiology 02/24/21 08:25 Aerobic Blood Culture - Preliminary Blood - Venous - Lab Draw NO GROWTH AFTER 2 DAYS Anaerobic Blood Culture - Preliminary NO GROWTH AFTER 2 DAYS 02/24/21 08:15 Aerobic Blood Culture - Preliminary Blood - Venous NO GROWTH AFTER 2 DAYS Anaerobic Blood Culture - Preliminary NO GROWTH AFTER 2 DAYS Med Orders - Current: Current Medications Acetaminophen (Acetaminophen 325 Mg Tab) 650 mg PO Q4H PRN PRN Reason: Pain (Mild 1-3)/fever Last Admin: 02/26/21 22:30 Dose: 650 mg Documented by: Albuterol (Albuterol 6.7 Gm Inhaler) 0 gm INH Q2H PRN PRN Reason: SOB/Wheezing Alogliptin Benzoate (Alogliptin 12.5 Mg Tab) 12.5 mg PO DAILY [facility] Last Admin: 02/26/21 08:15 Dose: 12.5 mg Documented by: Aspirin (Aspirin 325 Mg Tab.Ec) 325 mg PO DAILY [facility] Last Admin: 02/26/21 08:14 Dose: 325 mg Documented by: Atorvastatin Calcium (Atorvastatin 40 Mg Tab) 40 mg PO DAILY [facility] Last Admin: 02/26/21 08:15 Dose: 40 mg Documented by: Cholecalciferol (Cholecalciferol (Vitamin D3) 5,000 Unit Cap) 5,000 unit PO DAILY [facility] Last Admin: 02/26/21 08:15 Dose: 5,000 unit Documented by: Dexamethasone (Dexamethasone 4 Mg Tab) 6 mg PO DAILY [facility] Stop: 03/05/21 09:01 Last Admin: 02/26/21 08:14 Dose: 6 mg Documented by: Docusate Sodium (Docusate Sodium 100 Mg Cap) 100 mg PO BID PRN PRN Reason: Constipation Enoxaparin Sodium (Enoxaparin 40 Mg/0.4 Ml Syringe) 40 mg SUBCUT DAILY [facility] Last Admin: 02/26/21 08:14 Dose: 40 mg Documented by: Famotidine (Famotidine 20 Mg Tab) 20 mg PO BEDTIME [facility] Last Admin: 02/26/21 22:18 Dose: 20 mg Documented by: Sodium Chloride (Normal Saline) 1,000 mls @ 1,000 mls/hr IV .BOLUS [facility] Last Admin: 02/24/21 08:23 Dose: 1,000 mls/hr Documented by: Ceftriaxone Sodium 2 gm/ (Sodium Chloride) 100 mls @ 200 mls/hr IV Q24H [facility] Stop: 02/28/21 14:29 Last Admin: 02/26/21 14:33 Dose: 200 mls/hr Documented by: Remdesivir 100 mg/ Sodium (Chloride) 100 mls @ 100 mls/hr IV Q24H [facility] Stop: 02/28/21 11:59 Last Admin: 02/26/21 10:23 Dose: 100 mls/hr Documented by: Insulin Glargine (Insulin Glarg,Human.Rec.Analog 100 Unit/Ml) 10 unit SUBCUT DAILY [facility] Last Admin: 02/26/21 08:15 Dose: 10 units Documented by: Insulin Glargine (Insulin Glarg,Human.Rec.Analog 100 Unit/Ml) 25 unit SUBCUT BEDTIME [facility] Last Admin: 02/26/21 22:20 Dose: 25 units Documented by: Insulin Human Lispro (Insulin Lispro 100 Unit/Ml) 0 unit SUBCUT QIDACANDBED [facility]; Protocol Last Admin: 02/27/21 06:49 Dose: 6 units Documented by: Magnesium Hydroxide (Magnesium Hydroxide 400 Mg/5 Ml Susp 30 Ml Cup) 30 ml PO Q12H PRN PRN Reason: Constipation Melatonin (Melatonin 3 Mg Tab) 9 mg PO BEDTIME [facility] Last Admin: 02/26/21 22:19 Dose: 9 mg Documented by: Metoprolol Tartrate (Metoprolol Tartrate 25 Mg Tab) 25 mg PO BID [facility] Last Admin: 02/26/21 22:20 Dose: 25 mg Documented by: Ondansetron HCl (Ondansetron 4 Mg/2 Ml Sdv) 4 mg IV Q6H PRN PRN Reason: Nausea/Vomiting Sodium Chloride (Sodium Chloride 0.9% 10 Ml Syringe) 10 ml FLUSH ASDIRECTED PRN PRN Reason: Keep Vein Open Last Admin: 02/24/21 08:23 Dose: 10 ml Documented by: Zinc Sulfate (Zinc Sulfate 220 Mg Cap) 220 mg PO DAILY [facility] Last Admin: 02/26/21 08:15 Dose: 220 mg Documented by: Discontinued Medications Dexamethasone (Dexamethasone 4 Mg/Ml Sdv) 6 mg IVPUSH ONETIME ONE Stop: 02/24/21 10:00 Last Admin: 02/24/21 10:43 Dose: 6 mg Documented by: Remdesivir 200 mg/ Sodium (Chloride) 250 mls @ 250 mls/hr IV ONETIME ONE Stop: 02/24/21 10:00 Last Admin: 02/24/21 13:41 Dose: Not Given Documented by: Remdesivir 200 mg/ Sodium (Chloride) 250 mls @ 250 mls/hr IV ONETIME ONE Stop: 02/24/21 11:59 Last Admin: 02/24/21 10:43 Dose: 250 mls/hr Documented by: Remdesivir 100 mg/ Sodium (Chloride) 100 mls @ 100 mls/hr IV DAILY [facility] Stop: 02/28/21 09:59 Azithromycin 500 mg/ Sodium (Chloride) 250 mls @ 250 mls/hr IV Q24H [facility] Stop: 02/26/21 14:59 Last Admin: 02/24/21 16:06 Dose: 250 mls/hr Documented by: Azithromycin 500 mg/ Sodium (Chloride) 250 mls @ 250 mls/hr IV Q24H [facility] Stop: 02/26/21 16:59 Last Admin: 02/26/21 15:07 Dose: 250 mls/hr Documented by: Insulin Glargine (Insulin Glarg,Human.Rec.Analog 100 Unit/Ml) 10 unit SUBCUT BEDTIME [facility] Last Admin: 02/24/21 21:58 Dose: 10 units Documented by: Insulin Glargine (Insulin Glarg,Human.Rec.Analog 100 Unit/Ml) 15 unit SUBCUT BEDTIME [facility] Last Admin: 02/25/21 22:09 Dose: 15 units Documented by: Insulin Human Lispro (Insulin Lispro 100 Unit/Ml) 0 unit SUBCUT ONETIME ONE; Protocol Stop: 02/24/21 13:45 Last Admin: 02/24/21 14:46 Dose: 6 units Documented by: Insulin Human Lispro (Insulin Lispro 100 Unit/Ml) 10 unit SUBCUT ONETIME ONE Stop: 02/24/21 17:01 Last Admin: 02/24/21 17:33 Dose: 10 units Documented by: Insulin Human Lispro (Insulin Lispro 100 Unit/Ml) 4 unit SUBCUT ONETIME ONE Stop: 02/25/21 18:09 Last Admin: 02/25/21 18:17 Dose: 4 units Documented by: Insulin Human Lispro (Insulin Lispro 100 Unit/Ml) 4 unit SUBCUT ONETIME ONE Stop: 02/25/21 22:00 Last Admin: 02/25/21 22:08 Dose: 4 units Documented by: Insulin Human Lispro (Insulin Lispro 100 Unit/Ml) 5 unit SUBCUT ONETIME ONE Stop: 02/26/21 12:20 Last Admin: 02/26/21 12:25 Dose: 5 units Documented by: Insulin Human Lispro (Insulin Lispro 100 Unit/Ml) 10 unit SUBCUT ONETIME ONE Stop: 02/26/21 17:50 Last Admin: 02/26/21 18:07 Dose: 10 units Documented by: Insulin Human Lispro (Insulin Lispro 100 Unit/Ml) 10 unit SUBCUT ONETIME ONE Stop: 02/26/21 22:11 Last Admin: 02/26/21 22:19 Dose: 10 units Documented by: Ondansetron HCl (Ondansetron 4 Mg/2 Ml Sdv) 4 mg IVPUSH ONETIME ONE Stop: 02/24/21 08:05 Last Admin: 02/24/21 08:23 Dose: 4 mg Documented by: - Exam Quality Assessment: Supplemental Oxygen (1L), DVT Prophylaxis. No: Urine Catheter General: Alert, Oriented, Cooperative, No Acute Distress HEENT: Pupils Equal, Pupils Reactive, Mucous Membr. Moist/[place] Neck: Supple, Trachea Midline Lungs: Normal Respiratory Effort, Decreased Breath Sounds, Crackles Cardiovascular: Regular Rate, Regular Rhythm GI/Abdominal Exam: Normal Bowel Sounds, Soft, Non-Tender, No Distention (Female) Exam: Deferred Back Exam: Normal Inspection, Full Range of Motion Extremities: Normal Inspection, Normal Range of Motion, Non-Tender, No Pedal Edema, Normal Capillary Refill Peripheral Pulses: 2+: Radial (L), Radial (R), Dorsalis Pedis (L), Dorsalis Pedis (R) Skin: Warm, Dry, Intact Neurological: No New Focal Deficit Psy/Mental Status: Alert, Normal Affect, Normal Mood - Patient Data Lab Results Last 24 hrs: Laboratory Results - last 24 hr 02/26/21 02/26/21 02/26/21 Range/Units 06:18 11:46 17:10 WBC (3.98-10.04) K/mm3 RBC (3.98-5.22) M/mm3 Hgb (11.2-15.7) gm/dl Hct (34.1-44.9) % MCV (79.4-94.8) fl MCH (25.6-32.2) pg MCHC (32.2-35.5) g/dl RDW Std Deviation (36.4-46.3) fL Plt Count (182-369) K/mm3 MPV (9.4-12.3) fl Neut % (Auto) (34.0-71.1) % Lymph % (Auto) (19.3-51.7) % [place] % (Auto) (4.7-12.5) % Eos % (Auto) (0.7-5.8) Baso % (Auto) (0.1-1.2) % Neut # (Auto) (1.56-6.13) K/mm3 Lymph # (Auto) (1.18-3.74) K/mm3 [place] # (Auto) (0.24-0.36) K/mm3 Eos # (Auto) (0.04-0.36) K/mm3 Baso # (Auto) (0.01-0.08) K/mm3 Manual Slide Review Sodium (136-145) mEq/L Potassium (3.5-5.1) mEq/L Chloride (98-107) mEq/L Carbon Dioxide (21-32) mEq/L Anion Gap (5-15) BUN (7-18) mg/dL Creatinine (0.55-1.02) mg/dL Est Cr Clr Drug Dosing mL/min Estimated GFR (MDRD) (>60) mL/min BUN/Creatinine Ratio (14-18) Glucose 461 H 507 H (80-115) mg/dL POC Glucose (80-115) mg/dL Calcium (8.5-10.1) mg/dL Magnesium (1.8-2.4) mg/dl Total Bilirubin (0.2-1.0) mg/dL AST (15-37) U/L ALT (14-59) U/L Alkaline Phosphatase (46-116) U/L C-Reactive Protein 15.3 H* (<1.0) mg/dL Total Protein (6.4-8.2) g/dl Albumin (3.4-5.0) g/dl Globulin gm/dL Albumin/Globulin Ratio (1-2) 02/26/21 02/27/21 02/27/21 Range/Units 21:15 05:25 05:25 WBC 13.17 H (3.98-10.04) K/mm3 RBC 3.39 L (3.98-5.22) M/mm3 Hgb 9.2 L (11.2-15.7) gm/dl Hct 29.1 L (34.1-44.9) % MCV 85.8 (79.4-94.8) fl MCH 27.1 (25.6-32.2) pg MCHC 31.6 L (32.2-35.5) g/dl RDW Std Deviation 40.5 (36.4-46.3) fL Plt Count 612 H (182-369) K/mm3 MPV 9.9 (9.4-12.3) fl Neut % (Auto) 71.9 H (34.0-71.1) % Lymph % (Auto) 14.0 L (19.3-51.7) % [place] % (Auto) 9.1 (4.7-12.5) % Eos % (Auto) 0.5 L (0.7-5.8) Baso % (Auto) 0.2 (0.1-1.2) % Neut # (Auto) 9.48 H (1.56-6.13) K/mm3 Lymph # (Auto) 1.84 (1.18-3.74) K/mm3 [place] # (Auto) 1.20 H (0.24-0.36) K/mm3 Eos # (Auto) 0.06 (0.04-0.36) K/mm3 Baso # (Auto) 0.02 (0.01-0.08) K/mm3 Manual Slide Review Abnormal smear Sodium 138 (136-145) mEq/L Potassium 4.3 (3.5-5.1) mEq/L Chloride 102 (98-107) mEq/L Carbon Dioxide 26 (21-32) mEq/L Anion Gap 14.3 (5-15) BUN 23 H (7-18) mg/dL Creatinine 1.2 H (0.55-1.02) mg/dL Est Cr Clr Drug Dosing 36.60 mL/min Estimated GFR (MDRD) 45 (>60) mL/min BUN/Creatinine Ratio 19.2 H (14-18) Glucose 443 H 272 H (80-115) mg/dL POC Glucose (80-115) mg/dL Calcium 9.0 (8.5-10.1) mg/dL Magnesium 1.6 L (1.8-2.4) mg/dl Total Bilirubin 0.2 (0.2-1.0) mg/dL AST 17 (15-37) U/L ALT 29 (14-59) U/L Alkaline Phosphatase 115 (46-116) U/L C-Reactive Protein 8.6 H* (<1.0) mg/dL Total Protein 6.5 (6.4-8.2) g/dl Albumin 2.2 L (3.4-5.0) g/dl Globulin 4.3 gm/dL Albumin/Globulin Ratio 0.5 L (1-2) 02/27/21 Range/Units 06:30 WBC (3.98-10.04) K/mm3 RBC (3.98-5.22) M/mm3 Hgb (11.2-15.7) gm/dl Hct (34.1-44.9) % MCV (79.4-94.8) fl MCH (25.6-32.2) pg MCHC (32.2-35.5) g/dl RDW Std Deviation (36.4-46.3) fL Plt Count (182-369) K/mm3 MPV (9.4-12.3) fl Neut % (Auto) (34.0-71.1) % Lymph % (Auto) (19.3-51.7) % [place] % (Auto) (4.7-12.5) % Eos % (Auto) (0.7-5.8) Baso % (Auto) (0.1-1.2) % Neut # (Auto) (1.56-6.13) K/mm3 Lymph # (Auto) (1.18-3.74) K/mm3 [place] # (Auto) (0.24-0.36) K/mm3 Eos # (Auto) (0.04-0.36) K/mm3 Baso # (Auto) (0.01-0.08) K/mm3 Manual Slide Review Sodium (136-145) mEq/L Potassium (3.5-5.1) mEq/L Chloride (98-107) mEq/L Carbon Dioxide (21-32) mEq/L Anion Gap (5-15) BUN (7-18) mg/dL Creatinine (0.55-1.02) mg/dL Est Cr Clr Drug Dosing mL/min Estimated GFR (MDRD) (>60) mL/min BUN/Creatinine Ratio (14-18) Glucose (80-115) mg/dL POC Glucose 255 H (80-115) mg/dL Calcium (8.5-10.1) mg/dL Magnesium (1.8-2.4) mg/dl Total Bilirubin (0.2-1.0) mg/dL AST (15-37) U/L ALT (14-59) U/L Alkaline Phosphatase (46-116) U/L C-Reactive Protein (<1.0) mg/dL Total Protein (6.4-8.2) g/dl Albumin (3.4-5.0) g/dl Globulin gm/dL Albumin/Globulin Ratio (1-2) Result Diagrams: 02/27/21 05:25 02/27/21 05:25 John Results Last 24 hrs: Microbiology 02/24/21 08:25 Aerobic Blood Culture - Preliminary Blood - Venous - Lab Draw NO GROWTH AFTER 2 DAYS Anaerobic Blood Culture - Preliminary NO GROWTH AFTER 2 DAYS 02/24/21 08:15 Aerobic Blood Culture - Preliminary Blood - Venous NO GROWTH AFTER 2 DAYS Anaerobic Blood Culture - Preliminary NO GROWTH AFTER 2 DAYS Sepsis Event Note - Evaluation Sepsis Screening Result: No Definite Risk - Focused Exam Vital Signs: Vital Signs Temp Pulse Pulse Resp BP BP Pulse Ox 02/27/21 05:17 59 L 16 02/27/21 05:16 98 02/27/21 05:15 157/71 H 98 02/27/21 02:05 94 L 02/27/21 00:00 98.3 F 16 94 L 02/26/21 23:53 158/70 H 98 02/26/21 23:52 98 02/26/21 23:00 97 02/26/21 22:22 94 L 02/26/21 22:20 73 162/84 H 02/26/21 22:19 92 L 02/26/21 22:15 162/84 H 02/26/21 22:00 95 02/26/21 21:07 94 L 02/26/21 21:00 94 L 02/26/21 20:21 154/78 H 90 L 02/26/21 20:20 93 L 02/26/21 20:00 16 92 L - Problem List & Annotations (1) HLD (hyperlipidemia) SNOMED Code(s): 03919077 Code(s): E78.5 - HYPERLIPIDEMIA, UNSPECIFIED Status: Chronic Priority: Low Current Visit: No Qualifiers: Hyperlipidemia type: unspecified Qualified Code(s): E78.5 - Hyperlipidemia, unspecified (2) HTN (hypertension) SNOMED Code(s): 32686792 Code(s): I10 - ESSENTIAL (PRIMARY) HYPERTENSION Status: Chronic Priority: Low Current Visit: No Qualifiers: Hypertension type: unspecified Qualified Code(s): I10 - Essential (primary) hypertension (3) Arthritis SNOMED Code(s): 0548542 Code(s): M19.90 - UNSPECIFIED OSTEOARTHRITIS, UNSPECIFIED SITE Status: Chronic Priority: Low Current Visit: No (4) History of syncope SNOMED Code(s): 290397086324472 Code(s): Z87.898 - PERSONAL HISTORY OF OTHER SPECIFIED CONDITIONS Status: Chronic Priority: Low Current Visit: No (5) Type I diabetes mellitus SNOMED Code(s): 46174191 Code(s): E10.9 - TYPE 1 DIABETES MELLITUS WITHOUT COMPLICATIONS Status: Chronic Priority: Low Current Visit: No Qualifiers: Diabetes mellitus complication status: with other specified complication Qualified Code(s): E10.69 - Type 1 diabetes mellitus with other specified complication (6) COVID-19 SNOMED Code(s): 218677852 Code(s): U07.1 - COVID-19 Status: Acute Priority: High Current Visit: Yes (7) Hypoxia SNOMED Code(s): 344422927 Code(s): R09.02 - HYPOXEMIA Status: Acute Priority: High Current Visit: Yes (8) Pneumonia due to COVID-19 virus SNOMED Code(s): 684675555425230286 Code(s): U07.1 - COVID-19; J12.82 - PNEUMONIA DUE TO CORONAVIRUS DISEASE 2019 Status: Acute Priority: High Current Visit: Yes (9) History of CO (myocardial infarction) SNOMED Code(s): 972410946 Code(s): I25.2 - OLD MYOCARDIAL INFARCTION Status: Chronic Priority: Medium Current Visit: No (10) High anion gap metabolic acidosis SNOMED Code(s): 49689040 Code(s): E87.2 - ACIDOSIS Status: Resolved Priority: Medium Current Visit: Yes (11) Hyponatremia SNOMED Code(s): 66557269 Code(s): E87.1 - HYPO-OSMOLALITY AND HYPONATREMIA Status: Resolved Priority: Medium Current Visit: Yes (12) Acute kidney injury SNOMED Code(s): 49408256, 75853904 Code(s): N17.9 - ACUTE KIDNEY FAILURE, UNSPECIFIED Status: Acute Priority: Medium Current Visit: Yes (13) Elevated d-dimer SNOMED Code(s): 524299954 Code(s): R79.89 - OTHER SPECIFIED ABNORMAL FINDINGS OF BLOOD CHEMISTRY Status: Acute Priority: Medium Current Visit: Yes (14) Vitamin D deficiency SNOMED Code(s): 89099060 Code(s): E55.9 - VITAMIN D DEFICIENCY, UNSPECIFIED Status: Acute Priority: High Current Visit: Yes (15) Hypomagnesemia SNOMED Code(s): 608924837 Code(s): E83.42 - HYPOMAGNESEMIA Status: Acute Priority: High Current Visit: Yes - Problem List Review Problem List Initiated/Reviewed/Updated: Yes - My Orders Last 24 Hours: My Active Orders 02/28/21 05:11 CBC WITH AUTO DIFF [HEME] AM CMP [COMPREHENSIVE METABOLIC PN,CMP] [CHEM] AM CRP [C-REACTIVE PROTEIN] [CHEM] AM MAGNESIUM [CHEM] AM 02/28/21 12:42 DD [D-DIMER QUANTITATIVE] [COAG] Q48H 03/01/21 05:11 CBC WITH AUTO DIFF [HEME] AM CMP [COMPREHENSIVE METABOLIC PN,CMP] [CHEM] AM CRP [C-REACTIVE PROTEIN] [CHEM] AM MAGNESIUM [CHEM] AM 03/02/21 12:42 DD [D-DIMER QUANTITATIVE] [COAG] Q48H - Assessment Assessment:: Assessment - day of admission 02/24/2021 * 70-year-old female presents to ED with fever, chills, cough, body aches, shortness of breath, generalized weakness, nausea and vomiting. * Known COVID-19 positive diagnosed on 02/17/2021 at [facility]. * Received the [employer] Covid vaccine at [place] on January 25. * Reports she began feeling poor about 10 days ago. * History of HLD, HTN, arthritis, syncope with loss of consciousness, type I DM, prior CO. * Twelve-lead EKG in ED shows sinus rhythm at 79 bpm. * Labs obtained in ED: * WBC 9.93 * Hemoglobin 10.1 * Platelet 454,000 * Neutrophils 77.9% * INR 0.97 * APTT 26.4 * D-dimer 1.22 * Sodium 135 * Potassium 4.1 * Chloride 97 * Carbon dioxide 26 * Anion gap 16.1 * BUN 16, creatinine 1.2, GFR 45 * Glucose 363 * Magnesium 1.9 * Total bilirubin 0.5 * AST 33, ALT 44, alkaline phosphatase 151 * LDH 324 * Troponin less than 0.017 * CRP 25.8 * Albumin 2.8 * Lactic acid 1.5 * Ferritin 599 * ABG obtained in left radial: pH 7.45, PCO2 35.6, PO2 of 88.0, HCO3 24.4, O2 saturation 96.6, AA gradient 67, on nasal cannula 2 L * Given 1 L fluid bolus, 6 mg dexamethasone IV push, 4 mg Zofran, and 250 mg remdesivir. * Chest x-ray shows increased density within both lung bases, worse on the right side. Increased density within the left upper lung seen. Findings could represent areas of aspiration as well as bilateral pneumonia. Please rule out Covid disease. Other findings which are stable. * Subsequently admitted to the ICU as MedSurg overflow on telemetry for management of her COVID-19 pneumonia. 02/25/2021 The patient is a 70-year-old lady who is in intensive care for her Covid pneumonia. The patient will be retained in the ICU. Her length of stay is dependent upon treatment with remdesivir and she is currently scheduled until February 28. The patient's CRP is also risen and I have ordered repeat of the CRP for the morning. I have also ordered repeat laboratory studies. Patient's glucose checks have been high and she is currently on dexamethasone. Continue with diabetic diet and insulin sliding scale for now. The patient is also on DVT prophylaxis. Renal dose her medications due to renal insufficiency. The patient is also being duly treated with azithromycin and ceftriaxone for pneumonia. I ordered repeat chest x-ray for the morning. She has been encouraged to ambulate. 02/26/2021 The patient is a 70-year-old lady who is currently being treated for COVID-19 associated pneumonia. She has been doing better. She says that she still feels weak and fatigued. The patient will be continued on her blood glucose checks. I have ordered her Lantus increased to 25 units at night along with 10 units in the morning. Her blood sugars have been poorly controlled due to the use of the dexamethasone. Repeat laboratory studies have been ordered for the morning. The patient also has anemia likely associated with her stage III chronic renal disease. A comprehensive metabolic panel was been ordered for the morning. She should be able to be discharged upon completion of her remdesivir and dexamethasone. The patient has been encouraged to ambulate. 02/27/2021 In to see Mary. She is laying in bed and quite talkative. Saturations are in the upper 80s to low 90s she reports she was just back from the bathroom. She reports that she only really feels short of breath after she is up ambulating. She is on 1 L currently. Her last day of Rocephin and remdesivir are tomorrow. Sugars have remained somewhat high although long-acting insulin was started yesterday. We will continue to monitor this. Attempt to wean him from oxygen. He continues to do quite well. Hopeful for discharge tomorrow pending continued improvement. She will likely require oxygen at discharge. Labs today: WBC elevated 13.17 (likely secondary to steroid) hemoglobin 9.2. Platelet 612,000. Sodium 138. Potassium 4.3. Anion gap 14.3. BUN is 23, creatinine 1.2, GFR 45. Glucose 255 -507. Magnesium 1.6 and supplemented. CRP 8.6. Albumin 2.2. - Plan Plan:: Plan: COVID-19 Hypoxia Pneumonia due to COVID-19 virus Elevated d-dimer Vitamin D deficiency * O2 as needed to keep saturations 88-95% * PRN albuterol inhaler * Remdesivir - day 02/20 * Rocephin 2gm - day 02/20 * Completed 3 days Azithromycin 500mg * Dexamethasone - day 02/25 * IS/Acapella * RT consultation * Pepcid 20mg BID * ASA 325mg daily * Lovenox 40mg daily * Ambulate TID * Up with assistance/Up to chair * Prone whenever able * Repeat CXR as needed * Daily labs * D-Dimer Q48 hr * Melatonin 9mg at bedtime * Vitamin D supplementation - 5000 units daily * Zinc supplementation * Check Vitamin D level * Telemetry/continuous pulse oximetry * Airborne/contact precautions Acute kidney injury High anion gap metabolic acidosis, resolved Hyponatremia, resolved Hypomagnesemia * Given 1L bolus in ED * Caution with IV fluids due to COVID * Monitor labs * Avoid nephrotoxic agents if possible * Supplement 2gm magnesium Type I diabetes mellitus, A1C 10.1 * QID AC and Bedtime blood glucose checks * Hold home PO diabetic meds * Medium sliding scale insulin * Anticipate blood glucose level increase due to steroids * Alogliptin daily * Diabetic diet * Long acting insulin as scheduled HLD (hyperlipidemia) HTN (hypertension) Arthritis History of syncope History of CO (myocardial infarction) * No acute concerns * Telemetry * Monitor vital signs Code Status: Full code PCP: Dr. Hawkins (retired, will need to establish new PCP at discharge) DVT prophylaxis: Lovenox and 325mg ASA daily Disposition: Patient admitted to ICU as MSP overflow on telemetry for management of her COVID-19 symptoms. LOS >96 Hrs due to treatment for COVID-19 <Michael Hatch - Last Filed: 02/27/21 14:29> - General Info Subjective Update: I have seen and evaluated the patient independently of physician's executive assistant to general counsel, Ranulfo Roach, and have discussed the case with him. I have reviewed and agree with the patient's plan of care as outlined by him. Please see orders. - Patient Data Vitals - Most Recent: Last Vital Signs Temp 2.7 C L 02/27/21 11:39 Pulse 76 02/27/21 08:43 Resp 20 02/27/21 11:39 BP 130/70 02/27/21 11:39 Pulse Ox 94 L 02/27/21 13:16 I&O - Last 24 Hours: Intake & Output 02/26/21 02/27/21 02/27/21 22:59 06:59 14:59 Intake Total 1900 300 750 Balance 1900 300 750 Lab Results Last 24 Hours: Laboratory Results - last 24 hr 02/26/21 02/26/21 02/27/21 Range/Units 17:10 21:15 05:25 WBC 13.17 H (3.98-10.04) K/mm3 RBC 3.39 L (3.98-5.22) M/mm3 Hgb 9.2 L (11.2-15.7) gm/dl Hct 29.1 L (34.1-44.9) % MCV 85.8 (79.4-94.8) fl MCH 27.1 (25.6-32.2) pg MCHC 31.6 L (32.2-35.5) g/dl RDW Std Deviation 40.5 (36.4-46.3) fL Plt Count 612 H (182-369) K/mm3 MPV 9.9 (9.4-12.3) fl Neut % (Auto) 71.9 H (34.0-71.1) % Lymph % (Auto) 14.0 L (19.3-51.7) % [place] % (Auto) 9.1 (4.7-12.5) % Eos % (Auto) 0.5 L (0.7-5.8) Baso % (Auto) 0.2 (0.1-1.2) % Neut # (Auto) 9.48 H (1.56-6.13) K/mm3 Lymph # (Auto) 1.84 (1.18-3.74) K/mm3 [place] # (Auto) 1.20 H (0.24-0.36) K/mm3 Eos # (Auto) 0.06 (0.04-0.36) K/mm3 Baso # (Auto) 0.02 (0.01-0.08) K/mm3 Manual Slide Review Abnormal smear Sodium (136-145) mEq/L Potassium (3.5-5.1) mEq/L Chloride (98-107) mEq/L Carbon Dioxide (21-32) mEq/L Anion Gap (5-15) BUN (7-18) mg/dL Creatinine (0.55-1.02) mg/dL Est Cr Clr Drug Dosing mL/min Estimated GFR (MDRD) (>60) mL/min BUN/Creatinine Ratio (14-18) Glucose 507 H 443 H (80-115) mg/dL POC Glucose (80-115) mg/dL Calcium (8.5-10.1) mg/dL Magnesium (1.8-2.4) mg/dl Total Bilirubin (0.2-1.0) mg/dL AST (15-37) U/L ALT (14-59) U/L Alkaline Phosphatase (46-116) U/L C-Reactive Protein (<1.0) mg/dL Total Protein (6.4-8.2) g/dl Albumin (3.4-5.0) g/dl Globulin gm/dL Albumin/Globulin Ratio (1-2) 02/27/21 02/27/21 02/27/21 Range/Units 05:25 06:30 11:36 WBC (3.98-10.04) K/mm3 RBC (3.98-5.22) M/mm3 Hgb (11.2-15.7) gm/dl Hct (34.1-44.9) % MCV (79.4-94.8) fl MCH (25.6-32.2) pg MCHC (32.2-35.5) g/dl RDW Std Deviation (36.4-46.3) fL Plt Count (182-369) K/mm3 MPV (9.4-12.3) fl Neut % (Auto) (34.0-71.1) % Lymph % (Auto) (19.3-51.7) % [place] % (Auto) (4.7-12.5) % Eos % (Auto) (0.7-5.8) Baso % (Auto) (0.1-1.2) % Neut # (Auto) (1.56-6.13) K/mm3 Lymph # (Auto) (1.18-3.74) K/mm3 [place] # (Auto) (0.24-0.36) K/mm3 Eos # (Auto) (0.04-0.36) K/mm3 Baso # (Auto) (0.01-0.08) K/mm3 Manual Slide Review Sodium 138 (136-145) mEq/L Potassium 4.3 (3.5-5.1) mEq/L Chloride 102 (98-107) mEq/L Carbon Dioxide 26 (21-32) mEq/L Anion Gap 14.3 (5-15) BUN 23 H (7-18) mg/dL Creatinine 1.2 H (0.55-1.02) mg/dL Est Cr Clr Drug Dosing 36.60 mL/min Estimated GFR (MDRD) 45 (>60) mL/min BUN/Creatinine Ratio 19.2 H (14-18) Glucose 272 H (80-115) mg/dL POC Glucose 255 H 308 H (80-115) mg/dL Calcium 9.0 (8.5-10.1) mg/dL Magnesium 1.6 L (1.8-2.4) mg/dl Total Bilirubin 0.2 (0.2-1.0) mg/dL AST 17 (15-37) U/L ALT 29 (14-59) U/L Alkaline Phosphatase 115 (46-116) U/L C-Reactive Protein 8.6 H* (<1.0) mg/dL Total Protein 6.5 (6.4-8.2) g/dl Albumin 2.2 L (3.4-5.0) g/dl Globulin 4.3 gm/dL Albumin/Globulin Ratio 0.5 L (1-2) John Results Last 24 Hours: Microbiology 02/24/21 08:25 Aerobic Blood Culture - Preliminary Blood - Venous - Lab Draw NO GROWTH AFTER 3 DAYS Anaerobic Blood Culture - Preliminary NO GROWTH AFTER 3 DAYS 02/24/21 08:15 Aerobic Blood Culture - Preliminary Blood - Venous NO GROWTH AFTER 3 DAYS Anaerobic Blood Culture - Preliminary NO GROWTH AFTER 3 DAYS Med Orders - Current: Current Medications Acetaminophen (Acetaminophen 325 Mg Tab) 650 mg PO Q4H PRN PRN Reason: Pain (Mild 1-3)/fever Last Admin: 02/26/21 22:30 Dose: 650 mg Documented by: Albuterol (Albuterol 6.7 Gm Inhaler) 0 gm INH Q2H PRN PRN Reason: SOB/Wheezing Alogliptin Benzoate (Alogliptin 12.5 Mg Tab) 12.5 mg PO DAILY [facility] Last Admin: 02/27/21 08:43 Dose: 12.5 mg Documented by: Aspirin (Aspirin 325 Mg Tab.Ec) 325 mg PO DAILY [facility] Last Admin: 02/27/21 08:44 Dose: 325 mg Documented by: Atorvastatin Calcium (Atorvastatin 40 Mg Tab) 40 mg PO DAILY [facility] Last Admin: 02/27/21 08:44 Dose: 40 mg Documented by: Cholecalciferol (Cholecalciferol (Vitamin D3) 5,000 Unit Cap) 5,000 unit PO DAILY [facility] Last Admin: 02/27/21 08:44 Dose: 5,000 unit Documented by: Dexamethasone (Dexamethasone 4 Mg Tab) 6 mg PO DAILY [facility] Stop: 03/05/21 09:01 Last Admin: 02/27/21 08:44 Dose: 6 mg Documented by: Docusate Sodium (Docusate Sodium 100 Mg Cap) 100 mg PO BID PRN PRN Reason: Constipation Enoxaparin Sodium (Enoxaparin 40 Mg/0.4 Ml Syringe) 40 mg SUBCUT DAILY [facility] Last Admin: 02/27/21 08:43 Dose: 40 mg Documented by: Famotidine (Famotidine 20 Mg Tab) 20 mg PO BEDTIME [facility] Last Admin: 02/26/21 22:18 Dose: 20 mg Documented by: Sodium Chloride (Normal Saline) 1,000 mls @ 1,000 mls/hr IV .BOLUS [facility] Last Admin: 02/24/21 08:23 Dose: 1,000 mls/hr Documented by: Ceftriaxone Sodium 2 gm/ (Sodium Chloride) 100 mls @ 200 mls/hr IV Q24H [facility] Stop: 02/28/21 14:29 Last Admin: 02/27/21 14:11 Dose: 200 mls/hr Documented by: Remdesivir 100 mg/ Sodium (Chloride) 100 mls @ 100 mls/hr IV Q24H [facility] Stop: 02/28/21 11:59 Last Admin: 02/27/21 11:33 Dose: 100 mls/hr Documented by: Insulin Glargine (Insulin Glarg,Human.Rec.Analog 100 Unit/Ml) 10 unit SUBCUT DAILY [facility] Last Admin: 02/27/21 08:45 Dose: 10 units Documented by: Insulin Glargine (Insulin Glarg,Human.Rec.Analog 100 Unit/Ml) 25 unit SUBCUT BEDTIME [facility] Last Admin: 02/26/21 22:20 Dose: 25 units Documented by: Insulin Human Lispro (Insulin Lispro 100 Unit/Ml) 0 unit SUBCUT QIDACANDBED [facility]; Protocol Last Admin: 02/27/21 12:36 Dose: 8 units Documented by: Magnesium Hydroxide (Magnesium Hydroxide 400 Mg/5 Ml Susp 30 Ml Cup) 30 ml PO Q12H PRN PRN Reason: Constipation Melatonin (Melatonin 3 Mg Tab) 9 mg PO BEDTIME [facility] Last Admin: 02/26/21 22:19 Dose: 9 mg Documented by: Metoprolol Tartrate (Metoprolol Tartrate 25 Mg Tab) 25 mg PO BID [facility] Last Admin: 02/27/21 08:43 Dose: 25 mg Documented by: Ondansetron HCl (Ondansetron 4 Mg/2 Ml Sdv) 4 mg IV Q6H PRN PRN Reason: Nausea/Vomiting Sodium Chloride (Sodium Chloride 0.9% 10 Ml Syringe) 10 ml FLUSH ASDIRECTED PRN PRN Reason: Keep Vein Open Last Admin: 02/27/21 09:40 Dose: 10 ml Documented by: Zinc Sulfate (Zinc Sulfate 220 Mg Cap) 220 mg PO DAILY [facility] Last Admin: 02/27/21 08:44 Dose: 220 mg Documented by: Discontinued Medications Dexamethasone (Dexamethasone 4 Mg/Ml Sdv) 6 mg IVPUSH ONETIME ONE Stop: 02/24/21 10:00 Last Admin: 02/24/21 10:43 Dose: 6 mg Documented by: Remdesivir 200 mg/ Sodium (Chloride) 250 mls @ 250 mls/hr IV ONETIME ONE Stop: 02/24/21 10:00 Last Admin: 02/24/21 13:41 Dose: Not Given Documented by: Remdesivir 200 mg/ Sodium (Chloride) 250 mls @ 250 mls/hr IV ONETIME ONE Stop: 02/24/21 11:59 Last Admin: 02/24/21 10:43 Dose: 250 mls/hr Documented by: Remdesivir 100 mg/ Sodium (Chloride) 100 mls @ 100 mls/hr IV DAILY [facility] Stop: 02/28/21 09:59 Azithromycin 500 mg/ Sodium (Chloride) 250 mls @ 250 mls/hr IV Q24H [facility] Stop: 02/26/21 14:59 Last Admin: 02/24/21 16:06 Dose: 250 mls/hr Documented by: Azithromycin 500 mg/ Sodium (Chloride) 250 mls @ 250 mls/hr IV Q24H [facility] Stop: 02/26/21 16:59 Last Admin: 02/26/21 15:07 Dose: 250 mls/hr Documented by: Magnesium Sulfate (Magnesium Sulfate In Water 2 Gm/50 Ml) 2 gm in 50 mls @ 25 mls/hr IV ONETIME ONE Stop: 02/27/21 10:59 Last Admin: 02/27/21 09:40 Dose: 25 mls/hr Documented by: Insulin Glargine (Insulin Glarg,Human.Rec.Analog 100 Unit/Ml) 10 unit SUBCUT BEDTIME [facility] Last Admin: 02/24/21 21:58 Dose: 10 units Documented by: Insulin Glargine (Insulin Glarg,Human.Rec.Analog 100 Unit/Ml) 15 unit SUBCUT BEDTIME [facility] Last Admin: 02/25/21 22:09 Dose: 15 units Documented by: Insulin Human Lispro (Insulin Lispro 100 Unit/Ml) 0 unit SUBCUT ONETIME ONE; Protocol Stop: 02/24/21 13:45 Last Admin: 02/24/21 14:46 Dose: 6 units Documented by: Insulin Human Lispro (Insulin Lispro 100 Unit/Ml) 10 unit SUBCUT ONETIME ONE Stop: 02/24/21 17:01 Last Admin: 02/24/21 17:33 Dose: 10 units Documented by: Insulin Human Lispro (Insulin Lispro 100 Unit/Ml) 4 unit SUBCUT ONETIME ONE Stop: 02/25/21 18:09 Last Admin: 02/25/21 18:17 Dose: 4 units Documented by: Insulin Human Lispro (Insulin Lispro 100 Unit/Ml) 4 unit SUBCUT ONETIME ONE Stop: 02/25/21 22:00 Last Admin: 02/25/21 22:08 Dose: 4 units Documented by: Insulin Human Lispro (Insulin Lispro 100 Unit/Ml) 5 unit SUBCUT ONETIME ONE Stop: 02/26/21 12:20 Last Admin: 02/26/21 12:25 Dose: 5 units Documented by: Insulin Human Lispro (Insulin Lispro 100 Unit/Ml) 10 unit SUBCUT ONETIME ONE Stop: 02/26/21 17:50 Last Admin: 02/26/21 18:07 Dose: 10 units Documented by: Insulin Human Lispro (Insulin Lispro 100 Unit/Ml) 10 unit SUBCUT ONETIME ONE Stop: 02/26/21 22:11 Last Admin: 02/26/21 22:19 Dose: 10 units Documented by: Ondansetron HCl (Ondansetron 4 Mg/2 Ml Sdv) 4 mg IVPUSH ONETIME ONE Stop: 02/24/21 08:05 Last Admin: 02/24/21 08:23 Dose: 4 mg Documented by: - Patient Data Lab Results Last 24 hrs: Laboratory Results - last 24 hr 02/26/21 02/26/21 02/27/21 Range/Units 17:10 21:15 05:25 WBC 13.17 H (3.98-10.04) K/mm3 RBC 3.39 L (3.98-5.22) M/mm3 Hgb 9.2 L (11.2-15.7) gm/dl Hct 29.1 L (34.1-44.9) % MCV 85.8 (79.4-94.8) fl MCH 27.1 (25.6-32.2) pg MCHC 31.6 L (32.2-35.5) g/dl RDW Std Deviation 40.5 (36.4-46.3) fL Plt Count 612 H (182-369) K/mm3 MPV 9.9 (9.4-12.3) fl Neut % (Auto) 71.9 H (34.0-71.1) % Lymph % (Auto) 14.0 L (19.3-51.7) % [place] % (Auto) 9.1 (4.7-12.5) % Eos % (Auto) 0.5 L (0.7-5.8) Baso % (Auto) 0.2 (0.1-1.2) % Neut # (Auto) 9.48 H (1.56-6.13) K/mm3 Lymph # (Auto) 1.84 (1.18-3.74) K/mm3 [place] # (Auto) 1.20 H (0.24-0.36) K/mm3 Eos # (Auto) 0.06 (0.04-0.36) K/mm3 Baso # (Auto) 0.02 (0.01-0.08) K/mm3 Manual Slide Review Abnormal smear Sodium (136-145) mEq/L Potassium (3.5-5.1) mEq/L Chloride (98-107) mEq/L Carbon Dioxide (21-32) mEq/L Anion Gap (5-15) BUN (7-18) mg/dL Creatinine (0.55-1.02) mg/dL Est Cr Clr Drug Dosing mL/min Estimated GFR (MDRD) (>60) mL/min BUN/Creatinine Ratio (14-18) Glucose 507 H 443 H (80-115) mg/dL POC Glucose (80-115) mg/dL Calcium (8.5-10.1) mg/dL Magnesium (1.8-2.4) mg/dl Total Bilirubin (0.2-1.0) mg/dL AST (15-37) U/L ALT (14-59) U/L Alkaline Phosphatase (46-116) U/L C-Reactive Protein (<1.0) mg/dL Total Protein (6.4-8.2) g/dl Albumin (3.4-5.0) g/dl Globulin gm/dL Albumin/Globulin Ratio (1-2) 02/27/21 02/27/21 02/27/21 Range/Units 05:25 06:30 11:36 WBC (3.98-10.04) K/mm3 RBC (3.98-5.22) M/mm3 Hgb (11.2-15.7) gm/dl Hct (34.1-44.9) % MCV (79.4-94.8) fl MCH (25.6-32.2) pg MCHC (32.2-35.5) g/dl RDW Std Deviation (36.4-46.3) fL Plt Count (182-369) K/mm3 MPV (9.4-12.3) fl Neut % (Auto) (34.0-71.1) % Lymph % (Auto) (19.3-51.7) % [place] % (Auto) (4.7-12.5) % Eos % (Auto) (0.7-5.8) Baso % (Auto) (0.1-1.2) % Neut # (Auto) (1.56-6.13) K/mm3 Lymph # (Auto) (1.18-3.74) K/mm3 [place] # (Auto) (0.24-0.36) K/mm3 Eos # (Auto) (0.04-0.36) K/mm3 Baso # (Auto) (0.01-0.08) K/mm3 Manual Slide Review Sodium 138 (136-145) mEq/L Potassium 4.3 (3.5-5.1) mEq/L Chloride 102 (98-107) mEq/L Carbon Dioxide 26 (21-32) mEq/L Anion Gap 14.3 (5-15) BUN 23 H (7-18) mg/dL Creatinine 1.2 H (0.55-1.02) mg/dL Est Cr Clr Drug Dosing 36.60 mL/min Estimated GFR (MDRD) 45 (>60) mL/min BUN/Creatinine Ratio 19.2 H (14-18) Glucose 272 H (80-115) mg/dL POC Glucose 255 H 308 H (80-115) mg/dL Calcium 9.0 (8.5-10.1) mg/dL Magnesium 1.6 L (1.8-2.4) mg/dl Total Bilirubin 0.2 (0.2-1.0) mg/dL AST 17 (15-37) U/L ALT 29 (14-59) U/L Alkaline Phosphatase 115 (46-116) U/L C-Reactive Protein 8.6 H* (<1.0) mg/dL Total Protein 6.5 (6.4-8.2) g/dl Albumin 2.2 L (3.4-5.0) g/dl Globulin 4.3 gm/dL Albumin/Globulin Ratio 0.5 L (1-2) Result Diagrams: 02/27/21 05:25 02/27/21 05:25 John Results Last 24 hrs: Microbiology 02/24/21 08:25 Aerobic Blood Culture - Preliminary Blood - Venous - Lab Draw NO GROWTH AFTER 3 DAYS Anaerobic Blood Culture - Preliminary NO GROWTH AFTER 3 DAYS 02/24/21 08:15 Aerobic Blood Culture - Preliminary Blood - Venous NO GROWTH AFTER 3 DAYS Anaerobic Blood Culture - Preliminary NO GROWTH AFTER 3 DAYS Sepsis Event Note - Focused Exam Vital Signs: Vital Signs Temp Pulse Pulse Resp BP BP Pulse Ox 02/27/21 13:16 02/27/21 13:00 90 L 02/27/21 12:00 88 L 02/27/21 11:39 2.7 C L 20 130/70 89 L 02/27/21 11:00 92 L 02/27/21 10:00 93 L 02/27/21 09:01 89 L 02/27/21 08:43 76 146/79 H 02/27/21 08:30 02/27/21 08:00 36.0 C L 20 146/79 H 97 02/27/21 05:17 59 L 16 02/27/21 05:16 98 02/27/21 05:15 157/71 H 98 Pulse Ox Pulse Ox 02/27/21 13:16 94 L 02/27/21 13:00 02/27/21 12:00 02/27/21 11:39 02/27/21 11:00 02/27/21 10:00 02/27/21 09:01 02/27/21 08:43 02/27/21 08:30 91 L 87 L 02/27/21 08:00 02/27/21 05:17 02/27/21 05:16 02/27/21 05:15 - Problem List & Annotations (1) COVID-19 SNOMED Code(s): 771609352 Code(s): U07.1 - COVID-19 Status: Acute Priority: High Current Visit: Yes (2) Pneumonia due to COVID-19 virus SNOMED Code(s): 416917224341210608 Code(s): U07.1 - COVID-19; J12.82 - PNEUMONIA DUE TO CORONAVIRUS DISEASE 2019 Status: Acute Priority: High Current Visit: Yes (3) Anemia SNOMED Code(s): 302114838 Code(s): D64.9 - ANEMIA, UNSPECIFIED Status: Chronic Priority: Medium Current Visit: Yes Qualifiers: Anemia type: due to chronic kidney disease Chronic kidney disease stage: stage 3 (moderate) Chronic kidney disease stage 3 subtype: stage 3b (GFR 30- 44) Qualified Code(s): N18.32 - Chronic kidney disease, stage 3b; D63.1 - Anemia in chronic kidney disease (4) Chronic kidney disease (CKD), stage III (moderate) SNOMED Code(s): 304768907 Code(s): N18.30 - CHRONIC KIDNEY DISEASE, STAGE 3 UNSPECIFIED Status: Acute Priority: Medium Current Visit: Yes Qualifiers: Chronic kidney disease stage 3 subtype: stage 3b (GFR 30-44) Qualified Code(s): N18.32 - Chronic kidney disease, stage 3b (5) Type I diabetes mellitus SNOMED Code(s): 60768297 Code(s): E10.9 - TYPE 1 DIABETES MELLITUS WITHOUT COMPLICATIONS Status: Chronic Priority: Low Current Visit: No Qualifiers: Diabetes mellitus complication status: with other specified complication Qualified Code(s): E10.69 - Type 1 diabetes mellitus with other specified complication - My Orders Last 24 Hours: My Active Orders 02/26/21 21:00 Insulin Glarg,Human.Rec.Analog [LantUS] 25 unit SUBCUT BEDTIME
[2021-02-27] MEDS: Enoxaparin 40 MG/0.4 ML Syringe SUBCUT SCH (08:43)
[2021-02-27] MEDS: Metoprolol Tartrate 25 MG Tab PO SCH ×2 (08:43→20:07)
[2021-02-27] MEDS: atorvaSTATin 40 MG Tab PO SCH (08:44)
[2021-02-27] MEDS: Dexamethasone 4 MG Tab PO SCH (08:44)
[2021-02-27] MEDS: Cholecalciferol (Vitamin D3) 5,000 UNIT Cap PO SCH (08:44)
[2021-02-27] MEDS: Zinc Sulfate 220 MG Cap PO SCH (08:44)
[2021-02-27] MEDS: Aspirin 325 MG Tab.EC PO SCH (08:44)
[2021-02-27] MEDS: Insulin Glarg,Human.Rec.Analog 100 Unit/ML SUBCUT SCH ×2 (08:45→21:23)
[2021-02-27] MEDS ORDERED: Magnesium Sulfate/Water 2 GM/50 ML BAG IV ONE (09:00)
[2021-02-27] MEDS: Sodium Chloride 0.9% 10 ML Syringe FLUSH PRN (09:40)
[2021-02-27] MEDS: REMDESIVIR 100 MG in Sodium Chloride 0.9% 100 ML IV SCH (11:33)
[2021-02-27] MEDS: cefTRIAXone 2 GM in Sodium Chloride 0.9% 100 ML IV SCH (14:11)
[2021-02-27] MEDS ORDERED: Insulin Lispro 100 UNIT/ML 10 ML Vial SUBCUT ONE (17:31)
[2021-02-27] MEDS: Famotidine 20 MG Tab PO SCH (20:06)
[2021-02-27] MEDS: Melatonin 3 MG Tab PO SCH (20:06)
[2021-02-27] MEDS: Acetaminophen 325 MG Tab PO PRN (21:27)
[2021-02-28] MEDS: Acetaminophen 325 MG Tab PO PRN (03:20)
[2021-02-28] MEDS: Enoxaparin 40 MG/0.4 ML Syringe SUBCUT SCH ×2 (07:00→11:48)
[2021-02-28] MEDS: Cholecalciferol (Vitamin D3) 5,000 UNIT Cap PO SCH ×2 (07:01→11:48)
[2021-02-28] MEDS: Metoprolol Tartrate 25 MG Tab PO SCH ×2 (07:03→11:47)
[2021-02-28] MEDS: atorvaSTATin 40 MG Tab PO SCH ×2 (07:05→11:47)
[2021-02-28] MEDS: Dexamethasone 4 MG Tab PO SCH ×2 (07:07→11:46)
[2021-02-28] MEDS: Aspirin 325 MG Tab.EC PO SCH ×2 (07:09→11:46)
[2021-02-28] MEDS: Zinc Sulfate 220 MG Cap PO SCH ×2 (07:10→11:49)
[2021-02-28] MEDS ORDERED: Magnesium Sulfate/Water 4 GM in Premix Bag 1 BAG IV ONE (07:16)
[2021-02-28] MEDS: Insulin Glarg,Human.Rec.Analog 100 Unit/ML SUBCUT SCH ×2 (07:49→11:46)
[2021-02-28] MEDS: Insulin Lispro 100 UNIT/ML 10 ML Vial SUBCUT SCH ×3 (07:50→18:03)
--- NOTE | 2021-02-28 08:48 | PCM.DCSUM1 ---
<Ranulfo Roach - Last Filed: 02/28/21 12:29> Discharge Summary - Hospital Course HPI Initial Comments: This is a 70-year-old female presents to ED on 02/24/2021 with fever, chills, cough, body aches, shortness of breath, generalized weakness, nausea, and vomiting. She was tested and confirmed positive with Covid this past Saturday at [facility]. She reports she received a [employer] Covid vaccine at [facility] on January 25. She had been doing fine until about 10 days ago when she started developing symptoms. She denies any diarrhea or smoking history. Denies any current chest pain. In the ED temp was 100.2 Fahrenheit. Pulse was 89. Respirations 17. Blood pressure 180/77. Pulse ox 9% on room air. Twelve-lead EKG is obtained showing a sinus rhythm at 79 bpm. Labs are obtained showing a WBC of 9.93. Hemoglobin 10.1. Platelets elevated at 454,000. Neutrophils elevated at 77.9%. INR 0.97. D-dimer is 1.22. aPTT is 26.4. Sodium is 135. Potassium 4.1. Chloride 97. Carbon oxide 26. Anion gap 16.1. BUN is 16, creatinine 1.2, GFR 45. Glucose is 363. Calcium 8.6. Magnesium 1.9. Total bilirubin 0.5. AST 33, ALT 44, alkaline phosphatase 151. LDH was 324. Troponin less than 0.017. CRP is high at 25.8. Albumin is low at 2.8. ABG is obtained in the left radial with a pH of 7.45. PCO2 of 35.6. PO2 of 88. HCO3 of 24.4. O2 saturation of 96.6%. AA gradient is 67. This is obtained while on 2 L via nasal cannula. Lactic acid is 1.5. Ferritin 599. Chest x-rays obtained showing increased density within both lung bases worse on the right side and additional increased density within the left upper lung seen. Findings could represent area of aspiration as well as bilateral pneumonia. Please rule out Covid disease. Other findings are noted. She is given 6 mg IV push dexamethasone and started on 200 mg remdesivir. Decision is made to admit her inpatient on telemetry for treatment of her COVID-19 pneumonia. She carries a past history of HLD, HTN, syncope, type I DM. She was never a smoker. She is a full code. Her PCP is Dr. Hawkins. Diagnosis: Stroke: No - Discharge Data Discharge Date: 02/28/21 (Admit date: 02/24/2021) Discharge Disposition: Home, Self-Care 01 Condition: Good - Referral to Home Health Primary Care Physician: Nixon Hawkins Jr, MD - Discharge Diagnosis/Problem(s) (1) HLD (hyperlipidemia) SNOMED Code(s): 31550976 ICD Code: E78.5 - HYPERLIPIDEMIA, UNSPECIFIED Status: Chronic Priority: Low Current Visit: No Qualifiers: Hyperlipidemia type: unspecified Qualified Code(s): E78.5 - Hyperlipidemia, unspecified (2) HTN (hypertension) SNOMED Code(s): 98268418 ICD Code: I10 - ESSENTIAL (PRIMARY) HYPERTENSION Status: Chronic Priority: Low Current Visit: No Qualifiers: Hypertension type: unspecified Qualified Code(s): I10 - Essential (primary) hypertension (3) Arthritis SNOMED Code(s): 3026146 ICD Code: M19.90 - UNSPECIFIED OSTEOARTHRITIS, UNSPECIFIED SITE Status: Chronic Priority: Low Current Visit: No (4) History of syncope SNOMED Code(s): 014593360972497 ICD Code: Z87.898 - PERSONAL HISTORY OF OTHER SPECIFIED CONDITIONS Status: Chronic Priority: Low Current Visit: No (5) Type I diabetes mellitus SNOMED Code(s): 02219211 ICD Code: E10.9 - TYPE 1 DIABETES MELLITUS WITHOUT COMPLICATIONS Status: Chronic Priority: Low Current Visit: No Qualifiers: Diabetes mellitus complication status: with other specified complication Qualified Code(s): E10.69 - Type 1 diabetes mellitus with other specified complication (6) COVID-19 SNOMED Code(s): 409796610 ICD Code: U07.1 - COVID-19 Status: Acute Priority: High Current Visit: Yes (7) Hypoxia SNOMED Code(s): 245931683 ICD Code: R09.02 - HYPOXEMIA Status: Acute Priority: High Current Visit: Yes (8) Pneumonia due to COVID-19 virus SNOMED Code(s): 472978497651360656 ICD Code: U07.1 - COVID-19; J12.82 - PNEUMONIA DUE TO CORONAVIRUS DISEASE 2018 Status: Acute Priority: High Current Visit: Yes (9) History of WA (myocardial infarction) SNOMED Code(s): 733472458 ICD Code: I25.2 - OLD MYOCARDIAL INFARCTION Status: Chronic Priority: Medium Current Visit: No (10) High anion gap metabolic acidosis SNOMED Code(s): 01221190 ICD Code: E87.2 - ACIDOSIS Status: Resolved Priority: Medium Current Visit: Yes (11) Hyponatremia SNOMED Code(s): 89112126 ICD Code: E87.1 - HYPO-OSMOLALITY AND HYPONATREMIA Status: Resolved Priority: Medium Current Visit: Yes (12) Acute kidney injury SNOMED Code(s): 12711009, 00114936 ICD Code: N17.9 - ACUTE KIDNEY FAILURE, UNSPECIFIED Status: Acute Priority: Medium Current Visit: Yes (13) Elevated d-dimer SNOMED Code(s): 703912604 ICD Code: R79.89 - OTHER SPECIFIED ABNORMAL FINDINGS OF BLOOD CHEMISTRY Status: Acute Priority: Medium Current Visit: Yes (14) Vitamin D deficiency SNOMED Code(s): 55273103 ICD Code: E55.9 - VITAMIN D DEFICIENCY, UNSPECIFIED Status: Acute Priority: High Current Visit: Yes (15) Hypomagnesemia SNOMED Code(s): 885888671 ICD Code: E83.42 - HYPOMAGNESEMIA Status: Acute Priority: High Current Visit: Yes - Patient Summary/Data Consults: Consultations 02/24/21 12:37 Respiratory Care Assess and Treatment [CONS] Routine Labs Pending at D/C: None Recommended Follow-up Testing/Procedures: Follow-up with primary care provider within 7 to 10 days of discharge, sooner if needed. -Recommend repeat CBC, CMP, and magnesium at that time. -Pay special attention to patient's magnesium as it was low here and was supplemented at discharge. Hospital Course: This is a 70-year-old female who presented to ED on 02/24/2021 with fever, chills, cough, body aches, shortness of breath, generalized weakness, nausea and vomiting. She reports she was diagnosed with COVID-19 on 02/17/2021 at [facility]. She also reports she received the Covid vaccine at [facility] on January 25. She carries a history of HLD, HTN, arthritis, syncope with loss of consciousness, type I DM, and prior WA. She was given a 1 L fluid bolus in the ED and started on 6 mg dexamethasone IV push, 4 mg Zofran, and 250 mg remdesivir. Initial chest x-ray showed increased density within both lung bases worse on the right side and increased density within the left upper lung. She was admitted to the ICU as MedSurg overflow on telemetry for treatment of her COVID-19 pneumonia. She was given 5 days of 6 mg dexamethasone, 5 days of remdesivir, 5 days of 2 g Rocephin and 3 days of azithromycin. Blood cultures have been negative. She was utilizing her incentive spirometry and Acapella and proning whenever able. She was requiring oxygen and at her worst was up to 4 L by nasal cannula. She was able to be weaned off oxygen prior to discharge. With her baseline diabetes and need for steroid her blood sugars did increase substantially. She was started on twice daily long-acting insulin. This will not be continued at discharge as her steroid has been stopped. Her symptoms have greatly improved and she feels good. Lung sounds remain diminished but no wheezing. Given her elevated D-dimer of 2.0 we will continue 325 mg aspirin at discharge for 30 days. She should resume her 81 mg daily dosing after that. We will prescribe vitamin D and zinc supplementation at discharge as well. Her magnesium was low and was supplemented here multiple times. She will be sent home on 400 mg daily magnesium for 4 days. Primary care provider should recheck this. She discharged home today. She was instructed to isolate/quarantine for 20 days from symptom onset. She was directed to continue to utilize her incentive spirometer and Acapella, proning whenever able, and stay active. We discussed how her blood sugars may remain elevated for some time while her steroid wears off. All home medications were continued with the exception of aspirin as noted prior. Recommend follow-up with primary care provider within 7 to 10 days of discharge, sooner if needed. Recommend recheck CBC, CMP and magnesium at that visit. Patient had been seeing Dr. Hawkins who retired recently. Patient requested to see Dr. Shearer from here on out and this appointment has been made. She was instructed to return to the emergency room or contact her primary care provider should symptoms return or worsen. Discharged home today. - Patient Instructions Diet: Usual Diet as Tolerated, Diabetic Diet Activity: As Tolerated Driving: Do Not Drive (until feeling better ) Showering/Bathing: May Shower Notify Provider of: Fever, Increased Pain, Nausea and/or Vomiting Other/Special Instructions: Follow-up with your primary care provider within 7- 10 days of discharge, sooner if needed. Stay active. Continue to walk around your house. Continue to utilize your incentive spirometer (clear/blue device you inhale through) and acapella (green tube you blow through) for 1-2 weeks or until symptoms resolve. Prone whenever able. You completed your COVID-19 treatment while here. Some studies have shown a benefit from Vitamin D and zinc supplementation and you were sent prescriptions for this. You were prescribed a daily 325mg aspirin. You should take this as prescribed for a month. Resume your usual 81mg tablet after completing this. Resume home medications as directed. Continue to check your blood sugars as before. You may notice higher blood sugars while your steroid wears off. Your magnesum was low and was supplemented. You will be prescribed a short course of supplemental magnesium. Your primary care provider can monitor this in the future. You should quarantine/isolate for 20 days total from the onset of symptoms. You will likely recieve a call from a rehabilitation caseworker from the [facility]. Follow their directions. Should symptoms return or worsen contact primary care provider or return to the Emergency Department. - Discharge Plan *PRESCRIPTION DRUG MONITORING PROGRAM REVIEWED*: No *COPY OF PRESCRIPTION DRUG MONITORING REPORT IN PATIENT RAY: No Prescriptions/Med Rec: Aspirin [Ecotrin EC] 325 mg PO DAILY #30 tab.ec Magnesium Oxide [Magnesium] 400 mg PO DAILY #4 tablet Cholecalciferol (Vitamin D3) [Vitamin D3] 5,000 unit PO DAILY #20 cap Zinc Sulfate [Zincate] 220 mg PO DAILY #20 cap Home Medications: Home Meds Metoprolol Tartrate 25 mg PO BID 08/18/18 [History] atorvaSTATin Calcium [Lipitor] 40 mg PO DAILY 08/18/18 [History] metFORMIN [Glucophage] 1,000 mg PO BID 08/18/18 [History] Dapagliflozin Propanediol [Farxiga] 10 mg PO DAILY 02/24/21 [History] Ubidecarenone [Co Q-10] 100 mg PO DAILY 02/24/21 [History] Aspirin [Ecotrin EC] 325 mg PO DAILY #30 tab.ec 02/28/21 [Rx] Cholecalciferol (Vitamin D3) [Vitamin D3] 5,000 unit PO DAILY #20 cap 02/28/21 [Rx] Magnesium Oxide [Magnesium] 400 mg PO DAILY #4 tablet 02/28/21 [Rx] Zinc Sulfate [Zincate] 220 mg PO DAILY #20 cap 02/28/21 [Rx] Oxygen Therapy Mode: Room Air Patient Handouts: Hypomagnesemia, How to Use an Incentive Spirometer, COVID-19: How to Protect Yourself and Others - CDC, Prevent the Spread of COVID-19 if You Are Sick - [facility] Referrals: Fred Shearer MD [Ordering Only Provider] - 03/07/21 3:00 pm () - Discharge Summary/Plan Comment DC Time >30 min.: Yes (45 mins ) - General Info Date of Service: 02/28/21 Admission Dx/Problem (Free Text: Admission Diagnosis/Problem Admission Diagnosis/Problem Pneumonia Functional Status: Reports: Pain Controlled, Tolerating Diet, Ambulating, Urinating, Incentive Spirometry, Other ([place] ). Denies: New Symptoms - Review of Systems General: Reports: No Symptoms. Denies: Fever, Weakness, Fatigue, Malaise, Chills HEENT: Reports: No Symptoms. Denies: Headaches, Sore Throat Pulmonary: Reports: Cough. Denies: Shortness of Breath, Pleuritic Chest Pain, Sputum, Wheezing Cardiovascular: Reports: Dyspnea on Exertion (improved ) Gastrointestinal: Reports: No Symptoms. Denies: Abdominal Pain, Constipation, Diarrhea, Nausea, Vomiting Genitourinary: Reports: No Symptoms. Denies: Pain Musculoskeletal: Reports: No Symptoms Skin: Reports: No Symptoms Neurological: Reports: No Symptoms. Denies: Confusion, Pre-Existing Deficit, Difficulty Walking, Weakness, Gait Disturbance Psychiatric: Reports: No Symptoms - Patient Data Vitals - Most Recent: Last Vital Signs Temp 97.0 F 02/28/21 03:43 Pulse 64 02/28/21 07:03 Resp 17 02/28/21 03:43 BP 164/86 H 02/28/21 07:03 Pulse Ox 98 02/28/21 06:30 Weight - Most Recent: 92.215 kg I&O - Last 24 hours: Intake & Output 02/27/21 02/28/21 02/28/21 22:59 06:59 14:59 Intake Total 860 250 Balance 860 250 Lab Results - Last 24 hrs: Laboratory Results - last 24 hr 02/27/21 02/27/21 02/28/21 Range/Units 11:36 20:43 05:07 WBC 13.21 H (3.98-10.04) K/mm3 RBC 3.21 L (3.98-5.22) M/mm3 Hgb 8.9 L (11.2-15.7) gm/dl Hct 27.3 L (34.1-44.9) % MCV 85.0 (79.4-94.8) fl MCH 27.7 (25.6-32.2) pg MCHC 32.6 (32.2-35.5) g/dl RDW Std Deviation 39.6 (36.4-46.3) fL Plt Count 618 H (182-369) K/mm3 MPV 10.0 (9.4-12.3) fl Neut % (Auto) 67.3 (34.0-71.1) % Lymph % (Auto) 17.9 L (19.3-51.7) % [place] % (Auto) 8.3 (4.7-12.5) % Eos % (Auto) 0.5 L (0.7-5.8) Baso % (Auto) 0.2 (0.1-1.2) % Neut # (Auto) 8.88 H (1.56-6.13) K/mm3 Lymph # (Auto) 2.37 (1.18-3.74) K/mm3 [place] # (Auto) 1.09 H (0.24-0.36) K/mm3 Eos # (Auto) 0.07 (0.04-0.36) K/mm3 Baso # (Auto) 0.03 (0.01-0.08) K/mm3 Manual Slide Review Abnormal smear D-Dimer, Quantitative (0.19-0.50) mg/L Sodium (136-145) mEq/L Potassium (3.5-5.1) mEq/L Chloride (98-107) mEq/L Carbon Dioxide (21-32) mEq/L Anion Gap (5-15) BUN (7-18) mg/dL Creatinine (0.55-1.02) mg/dL Est Cr Clr Drug Dosing mL/min Estimated GFR (MDRD) (>60) mL/min BUN/Creatinine Ratio (14-18) Glucose (80-115) mg/dL POC Glucose 308 H 382 H (80-115) mg/dL Calcium (8.5-10.1) mg/dL Magnesium (1.8-2.4) mg/dl Total Bilirubin (0.2-1.0) mg/dL AST (15-37) U/L ALT (14-59) U/L Alkaline Phosphatase (46-116) U/L C-Reactive Protein (<1.0) mg/dL Total Protein (6.4-8.2) g/dl Albumin (3.4-5.0) g/dl Globulin gm/dL Albumin/Globulin Ratio (1-2) 02/28/21 02/28/21 02/28/21 Range/Units 05:07 05:07 06:23 WBC (3.98-10.04) K/mm3 RBC (3.98-5.22) M/mm3 Hgb (11.2-15.7) gm/dl Hct (34.1-44.9) % MCV (79.4-94.8) fl MCH (25.6-32.2) pg MCHC (32.2-35.5) g/dl RDW Std Deviation (36.4-46.3) fL Plt Count (182-369) K/mm3 MPV (9.4-12.3) fl Neut % (Auto) (34.0-71.1) % Lymph % (Auto) (19.3-51.7) % [place] % (Auto) (4.7-12.5) % Eos % (Auto) (0.7-5.8) Baso % (Auto) (0.1-1.2) % Neut # (Auto) (1.56-6.13) K/mm3 Lymph # (Auto) (1.18-3.74) K/mm3 [place] # (Auto) (0.24-0.36) K/mm3 Eos # (Auto) (0.04-0.36) K/mm3 Baso # (Auto) (0.01-0.08) K/mm3 Manual Slide Review D-Dimer, Quantitative 2.00 H (0.19-0.50) mg/L Sodium 135 L (136-145) mEq/L Potassium 3.7 (3.5-5.1) mEq/L Chloride 100 (98-107) mEq/L Carbon Dioxide 28 (21-32) mEq/L Anion Gap 10.7 (5-15) BUN 26 H (7-18) mg/dL Creatinine 1.1 H (0.55-1.02) mg/dL Est Cr Clr Drug Dosing 39.93 mL/min Estimated GFR (MDRD) 49 (>60) mL/min BUN/Creatinine Ratio 23.6 H (14-18) Glucose 224 H (80-115) mg/dL POC Glucose 219 H (80-115) mg/dL Calcium 8.8 (8.5-10.1) mg/dL Magnesium 1.7 L (1.8-2.4) mg/dl Total Bilirubin 0.2 (0.2-1.0) mg/dL AST 19 (15-37) U/L ALT 32 (14-59) U/L Alkaline Phosphatase 117 H (46-116) U/L C-Reactive Protein 5.3 H* (<1.0) mg/dL Total Protein 6.6 (6.4-8.2) g/dl Albumin 2.4 L (3.4-5.0) g/dl Globulin 4.2 gm/dL Albumin/Globulin Ratio 0.6 L (1-2) RIZWAN Results - Last 24 hrs: Microbiology 02/24/21 08:25 Aerobic Blood Culture - Preliminary Blood - Venous - Lab Draw NO GROWTH AFTER 4 DAYS Anaerobic Blood Culture - Preliminary NO GROWTH AFTER 4 DAYS 02/24/21 08:15 Aerobic Blood Culture - Preliminary Blood - Venous NO GROWTH AFTER 4 DAYS Anaerobic Blood Culture - Preliminary NO GROWTH AFTER 4 DAYS Med Orders - Current: Current Medications Acetaminophen (Acetaminophen 325 Mg Tab) 650 mg PO Q4H PRN PRN Reason: Pain (Mild 1-3)/fever Last Admin: 02/28/21 03:20 Dose: 650 mg Documented by: Albuterol (Albuterol 6.7 Gm Inhaler) 0 gm INH Q2H PRN PRN Reason: SOB/Wheezing Alogliptin Benzoate (Alogliptin 12.5 Mg Tab) 12.5 mg PO DAILY JEFE Last Admin: 02/28/21 06:59 Dose: 12.5 mg Documented by: Aspirin (Aspirin 325 Mg Tab.Ec) 325 mg PO DAILY [facility] Last Admin: 02/28/21 07:09 Dose: 325 mg Documented by: Atorvastatin Calcium (Atorvastatin 40 Mg Tab) 40 mg PO DAILY [facility] Last Admin: 02/28/21 07:05 Dose: 40 mg Documented by: Cholecalciferol (Cholecalciferol (Vitamin D3) 5,000 Unit Cap) 5,000 unit PO DAILY [facility] Last Admin: 02/28/21 07:01 Dose: 5,000 unit Documented by: Dexamethasone (Dexamethasone 4 Mg Tab) 6 mg PO DAILY [facility] Stop: 03/05/21 09:01 Last Admin: 02/28/21 07:07 Dose: 6 mg Documented by: Docusate Sodium (Docusate Sodium 100 Mg Cap) 100 mg PO BID PRN PRN Reason: Constipation Enoxaparin Sodium (Enoxaparin 40 Mg/0.4 Ml Syringe) 40 mg SUBCUT DAILY [facility] Last Admin: 02/28/21 07:00 Dose: 40 mg Documented by: Famotidine (Famotidine 20 Mg Tab) 20 mg PO BEDTIME [facility] Last Admin: 02/27/21 20:06 Dose: 20 mg Documented by: Sodium Chloride (Normal Saline) 1,000 mls @ 1,000 mls/hr IV .BOLUS [facility] Last Admin: 02/24/21 08:23 Dose: 1,000 mls/hr Documented by: Ceftriaxone Sodium 2 gm/ (Sodium Chloride) 100 mls @ 200 mls/hr IV Q24H [facility] Stop: 02/28/21 14:29 Last Admin: 02/27/21 14:11 Dose: 200 mls/hr Documented by: Remdesivir 100 mg/ Sodium (Chloride) 100 mls @ 100 mls/hr IV Q24H [facility] Stop: 02/28/21 11:59 Last Admin: 02/27/21 11:33 Dose: 100 mls/hr Documented by: Magnesium Sulfate 4 gm/ Premix 50 mls @ 12.5 mls/hr IV ONETIME ONE Stop: 02/28/21 11:15 Last Admin: 02/28/21 07:53 Dose: 12.5 mls/hr Documented by: Insulin Glargine (Insulin Glarg,Human.Rec.Analog 100 Unit/Ml) 10 unit SUBCUT DAILY [facility] Last Admin: 02/28/21 07:49 Dose: 10 units Documented by: Insulin Glargine (Insulin Glarg,Human.Rec.Analog 100 Unit/Ml) 25 unit SUBCUT BEDTIME [facility] Last Admin: 02/27/21 21:23 Dose: 25 units Documented by: Insulin Human Lispro (Insulin Lispro 100 Unit/Ml) 0 unit SUBCUT QIDACANDBED [facility]; Protocol Last Admin: 02/28/21 07:50 Dose: 4 units Documented by: Magnesium Hydroxide (Magnesium Hydroxide 400 Mg/5 Ml Susp 30 Ml Cup) 30 ml PO Q12H PRN PRN Reason: Constipation Melatonin (Melatonin 3 Mg Tab) 9 mg PO BEDTIME [facility] Last Admin: 02/27/21 20:06 Dose: 9 mg Documented by: Metoprolol Tartrate (Metoprolol Tartrate 25 Mg Tab) 25 mg PO BID [facility] Last Admin: 02/28/21 07:03 Dose: 25 mg Documented by: Ondansetron HCl (Ondansetron 4 Mg/2 Ml Sdv) 4 mg IV Q6H PRN PRN Reason: Nausea/Vomiting Sodium Chloride (Sodium Chloride 0.9% 10 Ml Syringe) 10 ml FLUSH ASDIRECTED PRN PRN Reason: Keep Vein Open Last Admin: 02/27/21 09:40 Dose: 10 ml Documented by: Zinc Sulfate (Zinc Sulfate 220 Mg Cap) 220 mg PO DAILY [facility] Last Admin: 02/28/21 07:10 Dose: 220 mg Documented by: Discontinued Medications Dexamethasone (Dexamethasone 4 Mg/Ml Sdv) 6 mg IVPUSH ONETIME ONE Stop: 02/24/21 10:00 Last Admin: 02/24/21 10:43 Dose: 6 mg Documented by: Remdesivir 200 mg/ Sodium (Chloride) 250 mls @ 250 mls/hr IV ONETIME ONE Stop: 02/24/21 10:00 Last Admin: 02/24/21 13:41 Dose: Not Given Documented by: Remdesivir 200 mg/ Sodium (Chloride) 250 mls @ 250 mls/hr IV ONETIME ONE Stop: 02/24/21 11:59 Last Admin: 02/24/21 10:43 Dose: 250 mls/hr Documented by: Remdesivir 100 mg/ Sodium (Chloride) 100 mls @ 100 mls/hr IV DAILY [facility] Stop: 02/28/21 09:59 Azithromycin 500 mg/ Sodium (Chloride) 250 mls @ 250 mls/hr IV Q24H [facility] Stop: 02/26/21 14:59 Last Admin: 02/24/21 16:06 Dose: 250 mls/hr Documented by: Azithromycin 500 mg/ Sodium (Chloride) 250 mls @ 250 mls/hr IV Q24H [facility] Stop: 02/26/21 16:59 Last Admin: 02/26/21 15:07 Dose: 250 mls/hr Documented by: Magnesium Sulfate (Magnesium Sulfate In Water 2 Gm/50 Ml) 2 gm in 50 mls @ 25 mls/hr IV ONETIME ONE Stop: 02/27/21 10:59 Last Admin: 02/27/21 09:40 Dose: 25 mls/hr Documented by: Insulin Glargine (Insulin Glarg,Human.Rec.Analog 100 Unit/Ml) 10 unit SUBCUT BEDTIME [facility] Last Admin: 02/24/21 21:58 Dose: 10 units Documented by: Insulin Glargine (Insulin Glarg,Human.Rec.Analog 100 Unit/Ml) 15 unit SUBCUT BEDTIME [facility] Last Admin: 02/25/21 22:09 Dose: 15 units Documented by: Insulin Human Lispro (Insulin Lispro 100 Unit/Ml) 0 unit SUBCUT ONETIME ONE; Protocol Stop: 02/24/21 13:45 Last Admin: 02/24/21 14:46 Dose: 6 units Documented by: Insulin Human Lispro (Insulin Lispro 100 Unit/Ml) 10 unit SUBCUT ONETIME ONE Stop: 02/24/21 17:01 Last Admin: 02/24/21 17:33 Dose: 10 units Documented by: Insulin Human Lispro (Insulin Lispro 100 Unit/Ml) 4 unit SUBCUT ONETIME ONE Stop: 02/25/21 18:09 Last Admin: 02/25/21 18:17 Dose: 4 units Documented by: Insulin Human Lispro (Insulin Lispro 100 Unit/Ml) 4 unit SUBCUT ONETIME ONE Stop: 02/25/21 22:00 Last Admin: 02/25/21 22:08 Dose: 4 units Documented by: Insulin Human Lispro (Insulin Lispro 100 Unit/Ml) 5 unit SUBCUT ONETIME ONE Stop: 02/26/21 12:20 Last Admin: 02/26/21 12:25 Dose: 5 units Documented by: Insulin Human Lispro (Insulin Lispro 100 Unit/Ml) 10 unit SUBCUT ONETIME ONE Stop: 02/26/21 17:50 Last Admin: 02/26/21 18:07 Dose: 10 units Documented by: Insulin Human Lispro (Insulin Lispro 100 Unit/Ml) 10 unit SUBCUT ONETIME ONE Stop: 02/26/21 22:11 Last Admin: 02/26/21 22:19 Dose: 10 units Documented by: Insulin Human Lispro (Insulin Lispro 100 Unit/Ml) 5 unit SUBCUT ONETIME ONE Stop: 02/27/21 17:32 Last Admin: 02/27/21 17:40 Dose: 5 units Documented by: Ondansetron HCl (Ondansetron 4 Mg/2 Ml Sdv) 4 mg IVPUSH ONETIME ONE Stop: 02/24/21 08:05 Last Admin: 02/24/21 08:23 Dose: 4 mg Documented by: - Exam Quality Assessment: Reports: DVT Prophylaxis. Denies: Supplemental Oxygen, Urine Catheter General: Reports: Alert, Oriented, Cooperative, No Acute Distress HEENT: Reports: Pupils Equal, Pupils Reactive, Mucous Membr. Moist/[place] Neck: Reports: Supple, Trachea Midline Lungs: Reports: Normal Respiratory Effort, Decreased Breath Sounds. Denies: Crackles, Rales, Rhonchi, Wheezing Cardiovascular: Reports: Regular Rate, Regular Rhythm GI/Abdominal Exam: Normal Bowel Sounds, Soft, Non-Tender, No Distention (Female) Exam: Deferred Rectal (Female) Exam: Deferred Back Exam: Reports: Normal Inspection, Full Range of Motion Extremities: Normal Inspection, Normal Range of Motion, Non-Tender, No Pedal Edema, Normal Capillary Refill Skin: Reports: Warm, Dry, Intact Neurological: Reports: No New Focal Deficit Psy/Mental Status: Reports: Alert, Normal Affect, Normal Mood <MamieMichael Carbajal - Last Filed: 02/28/21 13:35> Discharge Summary - Hospital Course Free Text/Narrative:: The patient was seen and evaluated independently of physician's physician assistant primary care, Ranulfo Roach, and have reviewed the plan and recommendations listed by him. Please see orders. - Referral to Home Health Primary Care Physician: Nixon Hawkins Jr, MD - Discharge Diagnosis/Problem(s) (1) COVID-19 SNOMED Code(s): 053596604 ICD Code: U07.1 - COVID-19 Status: Acute Priority: High Current Visit: Yes (2) Pneumonia due to COVID-19 virus SNOMED Code(s): 829545063875423106 ICD Code: U07.1 - COVID-19; J12.82 - PNEUMONIA DUE TO CORONAVIRUS DISEASE 2019 Status: Acute Priority: High Current Visit: Yes (3) Anemia SNOMED Code(s): 995778585 ICD Code: D64.9 - ANEMIA, UNSPECIFIED Status: Chronic Priority: Medium Current Visit: Yes Qualifiers: Anemia type: due to chronic kidney disease Chronic kidney disease stage: stage 3 (moderate) Chronic kidney disease stage 3 subtype: stage 3b (GFR 30- 44) Qualified Code(s): N18.32 - Chronic kidney disease, stage 3b; D63.1 - Anemia in chronic kidney disease (4) Chronic kidney disease (CKD), stage III (moderate) SNOMED Code(s): 305412826 ICD Code: N18.30 - CHRONIC KIDNEY DISEASE, STAGE 3 UNSPECIFIED Status: Acute Priority: Medium Current Visit: Yes Qualifiers: Chronic kidney disease stage 3 subtype: stage 3b (GFR 30-44) Qualified Code(s): N18.32 - Chronic kidney disease, stage 3b (5) Type I diabetes mellitus SNOMED Code(s): 47563996 ICD Code: E10.9 - TYPE 1 DIABETES MELLITUS WITHOUT COMPLICATIONS Status: Chronic Priority: Low Current Visit: No Qualifiers: Diabetes mellitus complication status: with other specified complication Qualified Code(s): E10.69 - Type 1 diabetes mellitus with other specified complication - Patient Summary/Data Consults: Consultations 02/24/21 12:37 Respiratory Care Assess and Treatment [CONS] Routine - Patient Data Vitals - Most Recent: Last Vital Signs Temp 36.0 C L 02/28/21 10:00 Pulse 75 02/28/21 11:47 Resp 20 02/28/21 10:00 BP 176/79 H 02/28/21 11:47 Pulse Ox 91 L 02/28/21 10:00 I&O - Last 24 hours: Intake & Output 02/27/21 02/28/21 02/28/21 22:59 06:59 14:59 Intake Total 860 250 Balance 860 250 Lab Results - Last 24 hrs: Laboratory Results - last 24 hr 02/27/21 02/28/21 02/28/21 Range/Units 20:43 05:07 05:07 WBC 13.21 H (3.98-10.04) K/mm3 RBC 3.21 L (3.98-5.22) M/mm3 Hgb 8.9 L (11.2-15.7) gm/dl Hct 27.3 L (34.1-44.9) % MCV 85.0 (79.4-94.8) fl MCH 27.7 (25.6-32.2) pg MCHC 32.6 (32.2-35.5) g/dl RDW Std Deviation 39.6 (36.4-46.3) fL Plt Count 618 H (182-369) K/mm3 MPV 10.0 (9.4-12.3) fl Neut % (Auto) 67.3 (34.0-71.1) % Lymph % (Auto) 17.9 L (19.3-51.7) % Robeson % (Auto) 8.3 (4.7-12.5) % Eos % (Auto) 0.5 L (0.7-5.8) Baso % (Auto) 0.2 (0.1-1.2) % Neut # (Auto) 8.88 H (1.56-6.13) K/mm3 Lymph # (Auto) 2.37 (1.18-3.74) K/mm3 Robeson # (Auto) 1.09 H (0.24-0.36) K/mm3 Eos # (Auto) 0.07 (0.04-0.36) K/mm3 Baso # (Auto) 0.03 (0.01-0.08) K/mm3 Manual Slide Review Abnormal smear D-Dimer, Quantitative (0.19-0.50) mg/L Sodium 135 L (136-145) mEq/L Potassium 3.7 (3.5-5.1) mEq/L Chloride 100 (98-107) mEq/L Carbon Dioxide 28 (21-32) mEq/L Anion Gap 10.7 (5-15) BUN 26 H (7-18) mg/dL Creatinine 1.1 H (0.55-1.02) mg/dL Est Cr Clr Drug Dosing 39.93 mL/min Estimated GFR (MDRD) 49 (>60) mL/min BUN/Creatinine Ratio 23.6 H (14-18) Glucose 224 H (80-115) mg/dL POC Glucose 382 H (80-115) mg/dL Calcium 8.8 (8.5-10.1) mg/dL Magnesium 1.7 L (1.8-2.4) mg/dl Total Bilirubin 0.2 (0.2-1.0) mg/dL AST 19 (15-37) U/L ALT 32 (14-59) U/L Alkaline Phosphatase 117 H (46-116) U/L C-Reactive Protein 5.3 H* (<1.0) mg/dL Total Protein 6.6 (6.4-8.2) g/dl Albumin 2.4 L (3.4-5.0) g/dl Globulin 4.2 gm/dL Albumin/Globulin Ratio 0.6 L (1-2) 02/28/21 02/28/21 02/28/21 Range/Units 06:23 11:18 12:50 WBC (3.98-10.04) K/mm3 RBC (3.98-5.22) M/mm3 Hgb (11.2-15.7) gm/dl Hct (34.1-44.9) % MCV (79.4-94.8) fl MCH (25.6-32.2) pg MCHC (32.2-35.5) g/dl RDW Std Deviation (36.4-46.3) fL Plt Count (182-369) K/mm3 MPV (9.4-12.3) fl Neut % (Auto) (34.0-71.1) % Lymph % (Auto) (19.3-51.7) % Robeson % (Auto) (4.7-12.5) % Eos % (Auto) (0.7-5.8) Baso % (Auto) (0.1-1.2) % Neut # (Auto) (1.56-6.13) K/mm3 Lymph # (Auto) (1.18-3.74) K/mm3 Robeson # (Auto) (0.24-0.36) K/mm3 Eos # (Auto) (0.04-0.36) K/mm3 Baso # (Auto) (0.01-0.08) K/mm3 Manual Slide Review D-Dimer, Quantitative 2.00 H (0.19-0.50) mg/L Sodium (136-145) mEq/L Potassium (3.5-5.1) mEq/L Chloride (98-107) mEq/L Carbon Dioxide (21-32) mEq/L Anion Gap (5-15) BUN (7-18) mg/dL Creatinine (0.55-1.02) mg/dL Est Cr Clr Drug Dosing mL/min Estimated GFR (MDRD) (>60) mL/min BUN/Creatinine Ratio (14-18) Glucose (80-115) mg/dL POC Glucose 219 H 399 H (80-115) mg/dL Calcium (8.5-10.1) mg/dL Magnesium (1.8-2.4) mg/dl Total Bilirubin (0.2-1.0) mg/dL AST (15-37) U/L ALT (14-59) U/L Alkaline Phosphatase (46-116) U/L C-Reactive Protein (<1.0) mg/dL Total Protein (6.4-8.2) g/dl Albumin (3.4-5.0) g/dl Globulin gm/dL Albumin/Globulin Ratio (1-2) [facility]WAN Results - Last 24 hrs: Microbiology 02/24/21 08:25 Aerobic Blood Culture - Preliminary Blood - Venous - Lab Draw NO GROWTH AFTER 4 DAYS Anaerobic Blood Culture - Preliminary NO GROWTH AFTER 4 DAYS 02/24/21 08:15 Aerobic Blood Culture - Preliminary Blood - Venous NO GROWTH AFTER 4 DAYS Anaerobic Blood Culture - Preliminary NO GROWTH AFTER 4 DAYS Med Orders - Current: Current Medications Acetaminophen (Acetaminophen 325 Mg Tab) 650 mg PO Q4H PRN PRN Reason: Pain (Mild 1-3)/fever Last Admin: 02/28/21 03:20 Dose: 650 mg Documented by: Albuterol (Albuterol 6.7 Gm Inhaler) 0 gm INH Q2H PRN PRN Reason: SOB/Wheezing Alogliptin Benzoate (Alogliptin 12.5 Mg Tab) 12.5 mg PO DAILY [facility] Last Admin: 02/28/21 11:46 Dose: 12.5 mg Documented by: Aspirin (Aspirin 325 Mg Tab.Ec) 325 mg PO DAILY [facility] Last Admin: 02/28/21 11:46 Dose: 325 mg Documented by: Atorvastatin Calcium (Atorvastatin 40 Mg Tab) 40 mg PO DAILY [facility] Last Admin: 02/28/21 11:47 Dose: 40 mg Documented by: Cholecalciferol (Cholecalciferol (Vitamin D3) 5,000 Unit Cap) 5,000 unit PO DAILY [facility] Last Admin: 02/28/21 11:48 Dose: 5,000 unit Documented by: Dexamethasone (Dexamethasone 4 Mg Tab) 6 mg PO DAILY [facility] Stop: 03/05/21 09:01 Last Admin: 02/28/21 11:46 Dose: 6 mg Documented by: Docusate Sodium (Docusate Sodium 100 Mg Cap) 100 mg PO BID PRN PRN Reason: Constipation Enoxaparin Sodium (Enoxaparin 40 Mg/0.4 Ml Syringe) 40 mg SUBCUT DAILY [facility] Last Admin: 02/28/21 11:48 Dose: 40 mg Documented by: Famotidine (Famotidine 20 Mg Tab) 20 mg PO BEDTIME [facility] Last Admin: 02/27/21 20:06 Dose: 20 mg Documented by: Sodium Chloride (Normal Saline) 1,000 mls @ 1,000 mls/hr IV .BOLUS [facility] Last Admin: 02/24/21 08:23 Dose: 1,000 mls/hr Documented by: Ceftriaxone Sodium 2 gm/ (Sodium Chloride) 100 mls @ 200 mls/hr IV Q24H [facility] Stop: 02/28/21 14:29 Last Admin: 02/27/21 14:11 Dose: 200 mls/hr Documented by: Insulin Glargine (Insulin Glarg,Human.Rec.Analog 100 Unit/Ml) 10 unit SUBCUT DAILY [facility] Last Admin: 02/28/21 11:46 Dose: 10 units Documented by: Insulin Glargine (Insulin Glarg,Human.Rec.Analog 100 Unit/Ml) 25 unit SUBCUT BEDTIME [facility] Last Admin: 02/27/21 21:23 Dose: 25 units Documented by: Insulin Human Lispro (Insulin Lispro 100 Unit/Ml) 0 unit SUBCUT QIDACANDBED [facility]; Protocol Last Admin: 02/28/21 11:43 Dose: 10 units Documented by: Magnesium Hydroxide (Magnesium Hydroxide 400 Mg/5 Ml Susp 30 Ml Cup) 30 ml PO Q12H PRN PRN Reason: Constipation Melatonin (Melatonin 3 Mg Tab) 9 mg PO BEDTIME [facility] Last Admin: 02/27/21 20:06 Dose: 9 mg Documented by: Metoprolol Tartrate (Metoprolol Tartrate 25 Mg Tab) 25 mg PO BID [facility] Last Admin: 02/28/21 11:47 Dose: 25 mg Documented by: Ondansetron HCl (Ondansetron 4 Mg/2 Ml Sdv) 4 mg IV Q6H PRN PRN Reason: Nausea/Vomiting Sodium Chloride (Sodium Chloride 0.9% 10 Ml Syringe) 10 ml FLUSH ASDIRECTED PRN PRN Reason: Keep Vein Open Last Admin: 02/27/21 09:40 Dose: 10 ml Documented by: Zinc Sulfate (Zinc Sulfate 220 Mg Cap) 220 mg PO DAILY [facility] Last Admin: 02/28/21 11:49 Dose: 220 mg Documented by: Discontinued Medications Dexamethasone (Dexamethasone 4 Mg/Ml Sdv) 6 mg IVPUSH ONETIME ONE Stop: 02/24/21 10:00 Last Admin: 02/24/21 10:43 Dose: 6 mg Documented by: Remdesivir 200 mg/ Sodium (Chloride) 250 mls @ 250 mls/hr IV ONETIME ONE Stop: 02/24/21 10:00 Last Admin: 02/24/21 13:41 Dose: Not Given Documented by: Remdesivir 200 mg/ Sodium (Chloride) 250 mls @ 250 mls/hr IV ONETIME ONE Stop: 02/24/21 11:59 Last Admin: 02/24/21 10:43 Dose: 250 mls/hr Documented by: Remdesivir 100 mg/ Sodium (Chloride) 100 mls @ 100 mls/hr IV DAILY [facility] Stop: 02/28/21 09:59 Azithromycin 500 mg/ Sodium (Chloride) 250 mls @ 250 mls/hr IV Q24H [facility] Stop: 02/26/21 14:59 Last Admin: 02/24/21 16:06 Dose: 250 mls/hr Documented by: Remdesivir 100 mg/ Sodium (Chloride) 100 mls @ 100 mls/hr IV Q24H [facility] Stop: 02/28/21 11:59 Last Admin: 02/28/21 11:43 Dose: 100 mls/hr Documented by: Azithromycin 500 mg/ Sodium (Chloride) 250 mls @ 250 mls/hr IV Q24H [facility] Stop: 02/26/21 16:59 Last Admin: 02/26/21 15:07 Dose: 250 mls/hr Documented by: Magnesium Sulfate (Magnesium Sulfate In Water 2 Gm/50 Ml) 2 gm in 50 mls @ 25 mls/hr IV ONETIME ONE Stop: 02/27/21 10:59 Last Admin: 02/27/21 09:40 Dose: 25 mls/hr Documented by: Magnesium Sulfate 4 gm/ Premix 50 mls @ 12.5 mls/hr IV ONETIME ONE Stop: 02/28/21 11:15 Last Admin: 02/28/21 07:53 Dose: 12.5 mls/hr Documented by: Insulin Glargine (Insulin Glarg,Human.Rec.Analog 100 Unit/Ml) 10 unit SUBCUT BEDTIME [facility] Last Admin: 02/24/21 21:58 Dose: 10 units Documented by: Insulin Glargine (Insulin Glarg,Human.Rec.Analog 100 Unit/Ml) 15 unit SUBCUT BEDTIME [facility] Last Admin: 02/25/21 22:09 Dose: 15 units Documented by: Insulin Human Lispro (Insulin Lispro 100 Unit/Ml) 0 unit SUBCUT ONETIME ONE; Protocol Stop: 02/24/21 13:45 Last Admin: 02/24/21 14:46 Dose: 6 units Documented by: Insulin Human Lispro (Insulin Lispro 100 Unit/Ml) 10 unit SUBCUT ONETIME ONE Stop: 02/24/21 17:01 Last Admin: 02/24/21 17:33 Dose: 10 units Documented by: Insulin Human Lispro (Insulin Lispro 100 Unit/Ml) 4 unit SUBCUT ONETIME ONE Stop: 02/25/21 18:09 Last Admin: 02/25/21 18:17 Dose: 4 units Documented by: Insulin Human Lispro (Insulin Lispro 100 Unit/Ml) 4 unit SUBCUT ONETIME ONE Stop: 02/25/21 22:00 Last Admin: 02/25/21 22:08 Dose: 4 units Documented by: Insulin Human Lispro (Insulin Lispro 100 Unit/Ml) 5 unit SUBCUT ONETIME ONE Stop: 02/26/21 12:20 Last Admin: 02/26/21 12:25 Dose: 5 units Documented by: Insulin Human Lispro (Insulin Lispro 100 Unit/Ml) 10 unit SUBCUT ONETIME ONE Stop: 02/26/21 17:50 Last Admin: 02/26/21 18:07 Dose: 10 units Documented by: Insulin Human Lispro (Insulin Lispro 100 Unit/Ml) 10 unit SUBCUT ONETIME ONE Stop: 02/26/21 22:11 Last Admin: 02/26/21 22:19 Dose: 10 units Documented by: Insulin Human Lispro (Insulin Lispro 100 Unit/Ml) 5 unit SUBCUT ONETIME ONE Stop: 02/27/21 17:32 Last Admin: 02/27/21 17:40 Dose: 5 units Documented by: Ondansetron HCl (Ondansetron 4 Mg/2 Ml Sdv) 4 mg IVPUSH ONETIME ONE Stop: 02/24/21 08:05 Last Admin: 02/24/21 08:23 Dose: 4 mg Documented by:
[2021-02-28] MEDS: REMDESIVIR 100 MG in Sodium Chloride 0.9% 100 ML IV SCH (11:43)
[2021-02-28 11:49] VITALS: PULSE 75
[2021-02-28] MEDS: cefTRIAXone 2 GM in Sodium Chloride 0.9% 100 ML IV SCH (14:08)
[2021-02-28 18:13] VITALS: BP 169/83
== END 2021-02-28 17:45 | disposition home or self-care (01) | DRG 137 ==
LOC: JD.ED 07:33 → JD.ICU 10:21
PROVIDERS: ADMIT Family Medicine; ATTEND Family Medicine
PROC: XW033E5 Introduction of Remdesivir Anti-infective into Peripheral Vein, Percutaneous Approach, New Technology Group 5 (ICD-10-PCS; principal; 2021-02-24)
PROC: XW033F5 Introduction of Other New Technology Therapeutic Substance into Peripheral Vein, Percutaneous Approach, New Technology Group 5 (ICD-10-PCS; 2021-02-24)
PROC: 8E0ZXY6 Isolation (ICD-10-PCS; 2021-02-24)
DX: U07.1 COVID-19 (principal); J12.82 Pneumonia due to coronavirus disease 2019; E78.5 Hyperlipidemia, unspecified; M19.90 Unspecified osteoarthritis, unspecified site; I25.2 Old myocardial infarction; R09.02 Hypoxemia; E87.1 Hypo-osmolality and hyponatremia; N17.9 Acute kidney failure, unspecified; E55.9 Vitamin D deficiency, unspecified; R79.89 Other specified abnormal findings of blood chemistry; D64.9 Anemia, unspecified; E10.22 Type 1 diabetes mellitus with diabetic chronic kidney disease; I12.9 Hypertensive chronic kidney disease with stage 1 through stage 4 chronic kidney disease, or unspecified chronic kidney disease; N18.32 Chronic kidney disease, stage 3b; Z90.710 Acquired absence of both cervix and uterus
CPT/HCPCS: 36415; 36600; 71045; 71045-26; 80053; 82247; 82248; 82306; 82728; 82803; 82947; 82962; 83036; 83605; 83615; 83735; 84484; 85025; 85379; 85610; 85730; 86140; 87040; 93005; 93010; 94668; 94762; 96374; 99223; 99233; 99239; 99284; 99285-25; A9270-GY; J0456; J0696; J1100; J1650; J1815-GY; J2405; J3475; J7030; J7050; J8540